=== PATIENT | female | born 1930 | race Caucasian/White ===

== ENCOUNTER 2016-07-16 12:45 | Inpatient (IN) | payer OTHER ==
--- NOTE | 2016-07-16 13:02 | PDOC ---
History of Present Illness - General History Source: Patient, Care Provider, Old Records Exam Limitations: No Limitations - History of Present Illness Initial Comments: 07/16/16 13:19 The patient is a 85 year old female brought via EMS from home and presenting with her home health aide, with a significant past medical history of CHF, HTN, COPD, MO, atrial fibrillation, recurrent UTI and Right breast ductal carcinoma in situ, who presents to the emergency department with progressive confusion. The patient states that she has been having trouble with her memory lately and has asked to be placed in a custodial if possible. The patient had a fall 5 days ago, without any head trauma, loss of consciousness or any other kind of injuries. The patient denies chest pain, shortness of breath, headache and dizziness. Denies fever, chills, nausea, vomit, diarrhea and constipation. Denies dysuria, frequency, urgency and hematuria. Allergies: Penicillins Past surgical history: stents, MVR Social history: No alcohol, tobacco or drug use reported <Edilson Correa - Last Filed: 07/16/16 14:27> <Dianne Everett - Last Filed: 07/17/16 07:27> - General Chief Complaint: Altered Mental Status Stated Complaint: AMS Time Seen by Provider: 07/16/16 12:48 Past History <Edilson Correa - Last Filed: 07/16/16 14:27> - Past Medical History Cancer: Yes (- Right breast ductal carcinoma in situ) Cardiac Disorders: (Atrial Fibrilation, MO) COPD: Yes CHF: Yes Disorders: (Recurrent UTI) HTN: Yes Suicide Attempt (Hx): No - Surgical History Cardiac Surgery: (stents, MVR) Orthopedic Surgery: (Reduction of dislocated right shoulder - 3 weeks ago/ Unsuccessful) - Immunization History Immunization Up to Date: Yes - Psycho/Social/Smoking Cessation Hx Anxiety: No Suicidal Ideation: No Smoking History: Former smoker Have you smoked in the past 12 months: No Information on smoking cessation initiated: No Hx Alcohol Use: No Drug/Substance Use Hx: No Substance Use Type: None Hx Substance Use Treatment: No <Dianne Everett - Last Filed: 07/17/16 07:27> - Past Medical History Allergies/Adverse Reactions: Allergies Allergy/AdvReac Type Severity Reaction Status Date / Time Penicillins Allergy Unknown Verified 07/16/16 13:12 Home Medications: Ambulatory Orders Acetaminophen [Tylenol] 325 mg PO Q6H PRN #0 tablet 01/17/14 Albuterol 0.083% Nebulizer Shamika [Ventolin 0.083% Nebulizer Soln -] 1 neb NEB Q6H PRN #0 vial 01/17/14 Furosemide [Lasix -] 20 mg PO DAILY #30 tablet 01/17/14 Ramipril [Altace] 5 mg PO DAILY #0 tablet 01/17/14 Atorvastatin Ca [Lipitor] 20 mg PO HS #30 tablet 01/20/14 Carvedilol [Coreg -] 6.25 mg PO BID #60 tablet 01/20/14 Levothyroxine [Synthroid -] 75 mcg PO DAILY #30 tablet 01/20/14 Acetaminophen W/ Codeine #3 [Tylenol # 3 -] 1 combo PO Q8H PRN #60 tablet Apixaban [Eliquis -] 2.5 mg PO BID #60 tablet 04/23/14 Magnesium Oxide [Mag-Ox -] 400 mg PO BID #60 tablet 04/23/14 Sertraline HCl [Zoloft -] 25 mg PO DAILY #60 tablet 04/23/14 Review of Systems - Review of Systems Able to Perform ROS?: Yes Comments:: 07/16/16 13:19 GENERAL/CONSTITUTIONAL: No fever or chills. No weakness. Altered Mental status. HEAD, EYES, EARS, NOSE AND THROAT: No change in vision. No ear pain or discharge. No sore throat. CARDIOVASCULAR: No chest pain or shortness of breath RESPIRATORY: No cough, wheezing, or hemoptysis. GASTROINTESTINAL: No nausea, vomiting, diarrhea or constipation. GENITOURINARY: No dysuria, frequency, or change in urination. MUSCULOSKELETAL: No joint or muscle swelling or pain. No neck or back pain. SKIN: No rash NEUROLOGIC: No headache, vertigo, loss of consciousness, or change in strength/ sensation. ENDOCRINE: No increased thirst. No abnormal weight change HEMATOLOGIC/LYMPHATIC: No anemia, easy bleeding, or history of blood clots. ALLERGIC/IMMUNOLOGIC: No hives or skin allergy. <Edilson Correa - Last Filed: 07/16/16 14:27> *Physical Exam - Vital Signs Last Vital Signs Temp Pulse Resp BP Pulse Ox 98.4 F 78 18 183/52 100 07/16/16 13:03 07/16/16 13:03 07/16/16 13:03 07/16/16 13:03 07/16/16 13:03 - Physical Exam Comments: 07/16/16 13:19 GENERAL: Awake, alert, and fully oriented, in no acute distress HEAD: No signs of trauma, normocephalic, atraumatic EYES: PERRLA, EOMI, sclera anicteric, conjunctiva clear ENT: Auricles normal inspection, hearing grossly normal, nares patent, oropharynx clear without exudates. Moist mucosa NECK: Normal ROM, supple, no lymphadenopathy, JVD, or masses LUNGS: No distress, speaks full sentences, clear to auscultation bilaterally HEART: Regular rate and rhythm, normal S1 and S2, no murmurs, rubs or gallops, peripheral pulses normal and equal bilaterally. ABDOMEN: Soft, nontender, normoactive bowel sounds. No guarding, no rebound. No masses EXTREMITIES: +3 cm ecchymosis to the right anterior emery. Nontender deformity to the left wrist, with edema to the dorsal surface. Normal inspection, Normal range of motion, no edema. No clubbing or cyanosis. NEUROLOGICAL: Cranial nerves II through XII grossly intact. Normal speech, normal gait, no focal sensorimotor deficits SKIN: Warm, Dry, normal turgor, no rashes or lesions noted. <Edilson Correa - Last Filed: 07/16/16 14:27> Heart Score/ECG Review - ECG Impressions Comment:: EKG read 13:20- afib, ventricular rate 62 bpm, no acute ST/T changes <Dianne Everett - Last Filed: 07/17/16 07:27> ED Treatment Course - LABORATORY CBC & Chemistry Diagram: 07/16/16 13:20 07/16/16 13:20 - RADIOLOGY Radiograph Interpretation: 07/16/16 14:[address] Reviewed by: Dr. Bakari Grissom Impression: Moderate atrophy and moderate to marked chronic microvascular ischemic changes. No gross acute intracranial pathology is identified. Chest X-Ray Reviewed by: Dr. Jorge Reynolds Impression: No acute pathology. Left wrist x-ray Reviewed by: Dr. Jorge Reynolds Impression: Dorsal angulation of the distal radius consistent with fracture of inderterminate age. Soft tissue swelling over the dorsal aspect of the wrist and metacarpals. Calcification over the dorsal aspect of the proximal carpal row may reflect triquetral fracture and recommend clinical correlation for point tenderness. <Edilson Correa - Last Filed: 07/16/16 14:27> - LABORATORY CBC & Chemistry Diagram: 07/16/16 13:20 07/16/16 13:20 <Dianne Everett - Last Filed: 07/17/16 07:27> Medical Decision Making - Medical Decision Making 07/16/16 15:03 XR wrist shows poss old fracture. Patient is not tender to palpation, will not splint at present. Also, as per home health aide, the patient had an old fracture in the same location, so this may correlate with the XR findings. Labs show elevated creatinine- discussed with Dr. Thompson, she has been following this as an outpatient. Still awaiting UA, but I suspect patient has a UTI which may be contributing to her recent increased forgetfulness. At present, patient is requesting placement in [place]. 07/16/16 15:39 UA shows UTI. Will treat with levaquin, as patient is pcn-allergic. <Dianne Everett - Last Filed: 07/17/16 07:27> *DC/Admit/Observation/Transfer - Attestations Scribe Attestion: 07/16/16 13:19 Documentation prepared by Edilson Correa, acting as medical record librarian for Dianne Everett MD. <Edilson Correa - Last Filed: 07/16/16 14:27> - Discharge Dispostion Admit: Yes <Dianne Everett - Last Filed: 07/17/16 07:27> Diagnosis at time of Disposition: Altered mental status Qualifiers: Altered mental status type: unspecified Qualified Code(s): R41.82 - Altered mental status, unspecified UTI (urinary tract infection) Qualifiers: Urinary tract infection type: site unspecified Hematuria presence: without hematuria Qualified Code(s): N39.0 - Urinary tract infection, site not specified - Discharge Dispostion Condition at time of disposition: Stable
[2016-07-16 13:36] LABS: BASOPHIL 0.4 % (0-2.0); EOSINOPHIL 1.1 % (0-4.5); MCHC 33.6 g/dl (32.0-36.0); MEAN CELL VOLUME 92.3 fl (80-96); NEUTROPHILS 76.3 % (42.8-82.8); PLATELET COUNT 346 K/MM3 (134-434); RDW 16.5 % (11.6-15.6); WHITE BLOOD COUNT 9.4 K/mm3 (4.0-10.0)
[2016-07-16 14:01] LABS: ALBUMIN 3.5 g/dl (3.4-5.0); BILIRUBIN,TOTAL 0.5 mg/dL (0.2-1.0); CALCIUM 8.9 mg/dL (8.5-10.1); CREATININE 1.2 mg/dL (0.55-1.02); TOT PROT 6.7 g/dl (6.4-8.2)
--- NOTE | 2016-07-16 15:01 | EKG ---
Test Reason : Blood Pressure : / mmHG Vent. Rate : 062 BPM Atrial Rate : 033 BPM P-R Int : 000 ms QRS Dur : 082 ms QT Int : 418 ms P-R-T Axes : 000 005 -27 degrees QTc Int : 424 ms ATRIAL FIBRILLATION CANNOT RULE OUT ANTERIOR INFARCT , AGE UNDETERMINED NONSPECIFIC T WAVE ABNORMALITY ABNORMAL ECG WHEN COMPARED WITH ECG OF 18-APR-2014 16:51, T WAVE VARIATION Confirmed by KLEBER UNDERWOOD MD ([id number]) on 07/16/2016 3:01:02 PM Referred By: Confirmed By:KLEBER UNDERWOOD MD
[2016-07-16 15:24] LABS: URINE APPEARANCE CLOUDY; URINE BILIRUBIN NEGATIVE (NEGATIVE); URINE BLOOD NEGATIVE (NEGATIVE); URINE COLOR DKYELLOW; URINE GLUCOSE (UA) NEGATIVE (NEGATIVE); URINE KETONE 1+ (NEGATIVE); URINE NITRITE NEGATIVE (NEGATIVE); URINE UROBILINOGEN NEGATIVE E.U./dl (0.2-1.0)
[2016-07-16 15:26] LABS: URINE LEUK ESTERASE 3+ (NEGATIVE); URINE PROTEIN 2+ (NEGATIVE)
[2016-07-16 15:31] LABS: CALCIUM OXALATE CRYSTALS RARE /hpf (NONE SEEN); URINE HYALINE CAST 92 /lpf; URINE MUCUS MANY; URINE RBC 31 /hpf (0-3); URINE WBC 304 /hpf (3-5)
[2016-07-16] MEDS: LEVOFLOXACIN 750 MG IVPB 150 ML IVPB ONE ×2 (16:02→17:53)
[2016-07-16] MEDS ORDERED: ALBUTEROL SO4 0.083% IH SOL 2.5 MG/3 ML VIAL.NEB. NEB PRN (18:00)
[2016-07-16] MEDS ORDERED: SODIUM POLYSTYRENE SULFONATE 15 GM/60 ML BOTTLE PO ONE (18:08)
[2016-07-16 18:24] VITALS: BMI 20.9
[2016-07-16] MEDS ORDERED: HEPARIN NA (PORCINE) 5,000 UNITS/ML 1ML VIAL SQ SCH (22:00)
--- NOTE | 2016-07-16 22:13 | HP ---
Admitting History and Physical - Primary Care Physician PCP: Elicia Thompson S - Admission Chief Complaint: s/p fall, confusion History of Present Illness: The patient is a 85 year old female brought via EMS from home and presenting with her home health aide, with a significant past medical history of CHF, HTN, COPD, [place], atrial fibrillation, recurrent UTI and Right breast ductal carcinoma in situ, who presents to the emergency department with progressive confusion. The patient states that she has been having trouble with her memory lately and has asked to be placed in a longterm if possible. The patient had a fall 5 days ago, without any head trauma, loss of consciousness or any other kind of injuries. The patient denies chest pain, shortness of breath, headache and dizziness. Denies fever, chills, nausea, vomit, diarrhea and constipation. Denies dysuria, frequency, urgency and hematuria. 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 No: O2 Dependent Renal/: Yes: Cancer (Breast CA) ...: No Heme/Onc: Yes: Cancer (Breast CA), Myeloproliferative Synd Musculoskeletal: Yes: Chronic low back pain Rheumatology: Yes: Other (OA/DJD, spinal stenosis) Endocrine: Yes: Osteopenia - Smoking History Smoking history: Former smoker Have you smoked in the past 12 months: No - Alcohol/Substance Use Hx Alcohol Use: No History of Substance Use: reports: None - Social History Usual Living Arrangement: Yes: Alone ADL: Independent ([employer]) History of Recent Travel: No Home Medications - Allergies Allergies/Adverse Reactions: Allergies Allergy/AdvReac Type Severity Reaction Status Date / Time Penicillins Allergy Unknown Verified 07/16/16 13:12 - Home Medications Home Medications: Ambulatory Orders Acetaminophen [Tylenol] 325 mg PO Q6H PRN #0 tablet 01/17/14 Albuterol 0.083% Nebulizer Shamika [Ventolin 0.083% Nebulizer Soln -] 1 neb NEB Q6H PRN #0 vial 01/17/14 Furosemide [Lasix -] 20 mg PO DAILY #30 tablet 01/17/14 Ramipril [Altace] 5 mg PO DAILY #0 tablet 08/11/14 Atorvastatin Ca [Lipitor] 20 mg PO HS #30 tablet 01/20/14 Carvedilol [Coreg -] 6.25 mg PO BID #60 tablet 01/20/14 Levothyroxine [Synthroid -] 75 mcg PO DAILY #30 tablet 01/20/14 Acetaminophen W/ Codeine #3 [Tylenol # 3 -] 1 combo PO Q8H PRN #60 tablet Apixaban [Eliquis -] 2.5 mg PO BID #60 tablet 04/23/14 Magnesium Oxide [Mag-Ox -] 400 mg PO BID #60 tablet 04/23/14 Sertraline HCl [Zoloft -] 25 mg PO DAILY #60 tablet 04/23/14 Family Disease History - Family Disease History Family Disease History: Other: Father (CVA 80's), Mother (RA 60's) Review of Systems - Review of Systems Constitutional: denies: Chills, Fever Eyes: denies: Blurred Vision, Double Vision HENT: denies: Ear Pain Cardiovascular: denies: Chest Pain Respiratory: denies: Cough, SOB Gastrointestinal: denies: Abdominal Pain, Bloating, Constipation, Diarrhea Genitourinary: denies: Dysuria, Flank Pain Musculoskeletal: reports: Back Pain (chronic). denies: Muscle Weakness Integumentary: denies: Bruising, Rash Neurological: reports: Confusion, Unsteady Gait. denies: Change in LOC, Change in Speech, Dizziness, Headache, Seizure, Syncope Hematology/Lymphatic: denies: Easily Bruised, Excessive Bleeding Psychiatric: denies: Anxiety, Depression Physical Examination Vital Signs: Vital Signs Temperature 97.9 F 07/16/16 18:25 Pulse Rate 66 07/16/16 18:25 Respiratory Rate 20 07/16/16 18:25 Blood Pressure 184/77 07/16/16 18:25 O2 Sat by Pulse Oximetry (%) 98 07/16/16 18:18 Constitutional: Yes: No Distress, Calm Eyes: Yes: Conjunctiva Clear HENT: Yes: Atraumatic Neck: Yes: Supple Cardiovascular: No: Regular Rate and Rhythm Respiratory: Yes: CTA Bilaterally Gastrointestinal: Yes: Soft. No: Distention, Tenderness Musculoskeletal: No: Joint Stiffness, Joint Swelling Extremities: Yes: Other (L hand dorsal deformity c/w trauma possible fracture). No: Cold, Cool Edema: No Peripheral Pulses WNL: Yes Integumentary: No: Rash, Venous Stasis Changes Neurological: Yes: WNL (axox2 not in time), Alert, Oriented ...Motor Strength: WNL Psychiatric: Yes: WNL, Alert, Oriented. No: Agitated, Suicidal Ideation Imaging - Results Chest X-ray: Report Reviewed Other: Report Reviewed Assessment/Plan The patient is a 85 year old female brought via EMS from home and presenting with her home health aide, with a significant past medical history of CHF, HTN, COPD, DC, atrial fibrillation, recurrent UTI and Right breast ductal carcinoma in situ, who presents to the emergency department with progressive confusion and memory loss, lives alone unable to function. The patient had a fall 5 days ago, without any head trauma, loss of consciousness but hit her left hand and has a fracture. UA c/w UTI admit; IV ATB ortho eval PT rehab and case mgr eval; will need SNF or [facility] [place] DVT falls decubs pfx dw pt and staff
[2016-07-16 22:22] LABS: TROPONIN I 0.04 ng/ml (0.00-0.05)
[2016-07-16] MEDS: APIXABAN 2.5 MG TABLET PO SCH (22:36)
[2016-07-16] MEDS: ATORVASTATIN CA 20 MG TABLET (FP) PO SCH (22:36)
[2016-07-16] MEDS: MAGNESIUM OXIDE 400 MG TABLET (FP) PO SCH (22:36)
[2016-07-16] MEDS: CARVEDILOL 3.125 MG TABLET (FP) PO SCH (22:40)
[2016-07-17] MEDS: LEVOTHYROXINE NA 75 MCG TABLET (FP) PO SCH (06:40)
[2016-07-17 07:19] LABS: BASOPHIL 0.3 % (0-2.0); EOSINOPHIL 1.2 % (0-4.5); MCH 30.4 pg (25.7-33.7); MCHC 33.3 g/dl (32.0-36.0); MEAN CELL VOLUME 91.3 fl (80-96); NEUTROPHILS 72.2 % (42.8-82.8); PLATELET COUNT 292 K/MM3 (134-434); WHITE BLOOD COUNT 7.1 K/mm3 (4.0-10.0)
[2016-07-17 07:50] LABS: ALBUMIN 2.8 g/dl (3.4-5.0); CALCIUM 8.2 mg/dL (8.5-10.1)
[2016-07-17 07:53] LABS: BILIRUBIN,TOTAL 0.4 mg/dL (0.2-1.0); CREATININE 0.9 mg/dL (0.55-1.02); TOT PROT 5.1 g/dl (6.4-8.2)
[2016-07-17 07:54] LABS: TROPONIN I 0.04 ng/ml (0.00-0.05)
[2016-07-17] MEDS ORDERED: POTASSIUM CHLORIDE TABS 20 MEQ TABLET.ER (FP) PO ONE (10:30)
--- NOTE | 2016-07-17 10:48 | CON.ORTH ---
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 No: O2 Dependent Renal/: Yes: Cancer (Breast CA) ...: No Musculoskeletal: Yes: Chronic low back pain Rheumatology: Yes: Other (OA/DJD, spinal stenosis) Endocrine: Yes: Osteopenia - Alcohol/Substance Use Hx Alcohol Use: No History of Substance Use: reports: None - Smoking History Smoking history: Former smoker Have you smoked in the past 12 months: No - Social History ADL: Independent ([facility]) History of Recent Travel: No Home Medications - Allergies Allergies/Adverse Reactions: Allergies Allergy/AdvReac Type Severity Reaction Status Date / Time Penicillins Allergy Unknown Verified 07/16/16 13:12 - Home Medications Home Medications: Ambulatory Orders Acetaminophen [Tylenol] 325 mg PO Q6H PRN #0 tablet 01/17/14 Albuterol 0.083% Nebulizer Shamika [Ventolin 0.083% Nebulizer Soln -] 1 neb NEB Q6H PRN #0 vial 01/17/14 Furosemide [Lasix -] 20 mg PO DAILY #30 tablet 01/17/14 Ramipril [Altace] 5 mg PO DAILY #0 tablet 01/17/14 Atorvastatin Ca [Lipitor] 20 mg PO HS #30 tablet 01/20/14 Carvedilol [Coreg -] 6.25 mg PO BID #60 tablet 01/20/14 Levothyroxine [Synthroid -] 75 mcg PO DAILY #30 tablet 01/20/14 Acetaminophen W/ Codeine #3 [Tylenol # 3 -] 1 combo PO Q8H PRN #60 tablet Apixaban [Eliquis -] 2.5 mg PO BID #60 tablet 04/23/14 Magnesium Oxide [Mag-Ox -] 400 mg PO BID #60 tablet 04/23/14 Sertraline HCl [Zoloft -] 25 mg PO DAILY #60 tablet 04/23/14 Family Disease History - Family Disease History Family Disease History: Other: Father (CVA 80's), Mother (RA 60's) Physical Exam for Ortho Vital Signs: Vital Signs Temperature 99 F 07/17/16 05:32 Pulse Rate 76 07/17/16 05:32 Respiratory Rate 20 02/08/17 05:32 Blood Pressure 143/65 07/17/16 05:32 O2 Sat by Pulse Oximetry (%) 98 07/16/16 21:00 Labs: CBC, BMP 07/17/16 06:00 07/17/16 06:00 - Upper Extremity Wrist: Yes: Left, Deformity, Pain, Swelling, Tenderness, Other (nvi) Imaging - Results X-ray: Report Reviewed, Image Reviewed Assessment/Plan 85 year old female brought via EMS from home and presenting with her home health aide, with a significant past medical history of CHF, HTN, COPD, [place], atrial fibrillation, recurrent UTI and Right breast ductal carcinoma in situ, who presents to the emergency department with progressive confusion. The patient states that she has been having trouble with her memory lately and has asked to be placed in a custodial if possible. The patient had a fall 5 days ago, without any head trauma, loss of consciousness. Has some pain in left wrist. Pt had previous history of wrist fx years ago. a/p= left distal radius fx splint may remove to bath rom exercises will follow d/w Dr. Stanley
[2016-07-17] MEDS ORDERED: PT OWN MED DRAWER 7, Y5N ONE (10:53)
[2016-07-17] MEDS: CARVEDILOL 3.125 MG TABLET (FP) PO SCH ×2 (11:37→21:15)
[2016-07-17] MEDS: RAMIPRIL 5 MG CAPSULE (FP) PO SCH (11:37)
[2016-07-17] MEDS: APIXABAN 2.5 MG TABLET PO SCH ×2 (11:38→21:15)
[2016-07-17] MEDS: LEVOFLOXACIN 250 MG IVPB 50 ML IVPB SCH (11:38)
[2016-07-17] MEDS: FUROSEMIDE 20 MG TABLET (FP) PO SCH (11:38)
[2016-07-17] MEDS: MAGNESIUM OXIDE 400 MG TABLET (FP) PO SCH ×2 (11:39→21:15)
[2016-07-17] MEDS: SERTRALINE HCL 25 MG TABLET (FP) PO SCH (11:39)
--- NOTE | 2016-07-17 13:05 | PN ---
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, d/w CM - Current Medication List Current Medications: Active Medications Acetaminophen (Tylenol -) 325 mg PO Q6H PRN PRN Reason: PAIN Albuterol Sulfate (Ventolin 0.083% Nebulizer Soln -) 1 amp NEB Q6H PRN PRN Reason: ASTHMA Apixaban (Eliquis -) 2.5 mg PO BID [facility] Last Admin: 07/17/16 11:38 Dose: 2.5 mg Atorvastatin Calcium (Lipitor -) 20 mg PO [facility] Last Admin: 07/16/16 22:36 Dose: 20 mg Carvedilol (Coreg -) 6.25 mg PO BID [facility] Last Admin: 07/17/16 11:37 Dose: 6.25 mg Furosemide (Lasix -) 20 mg PO DAILY [facility] Last Admin: 07/17/16 11:38 Dose: 20 mg Levofloxacin (Levaquin 250 Mg Premixed Ivpb -) 50 mls @ 50 mls/hr IVPB DAILY [facility] Last Admin: 07/17/16 11:38 Dose: 50 mls/hr Levothyroxine Sodium (Synthroid -) 75 mcg PO DAILY@0700 [facility] Last Admin: 07/17/16 06:40 Dose: 75 mcg Magnesium Oxide (Mag-Ox -) 400 mg PO BID [facility] Last Admin: 07/17/16 11:39 Dose: 400 mg Ramipril (Altace -) 5 mg PO DAILY [facility] Last Admin: 07/17/16 11:37 Dose: 5 mg Sertraline HCl (Zoloft -) 25 mg PO DAILY [facility] Last Admin: 07/17/16 11:39 Dose: 25 mg - Objective Vital Signs: Vital Signs Temperature 99 F 07/17/16 05:32 Pulse Rate 76 07/17/16 05:32 Respiratory Rate 20 07/17/16 05:32 Blood Pressure 143/65 07/17/16 05:32 O2 Sat by Pulse Oximetry (%) 98 07/16/16 21:00 Constitutional: Yes: No Distress, Calm Eyes: Yes: Conjunctiva Clear HENT: Yes: Atraumatic Neck: Yes: Supple Cardiovascular: No: Regular Rate and Rhythm Respiratory: Yes: CTA Bilaterally Gastrointestinal: Yes: Soft. No: Distention, Tenderness Genitourinary: No: CVA Tenderness - Left, CVA Tenderness - Right Musculoskeletal: No: Joint Stiffness, Joint Swelling Extremities: No: Cold, Cool Edema: No Peripheral Pulses WNL: Yes Integumentary: No: Rash, Venous Stasis Changes Neurological: Yes: Alert, Oriented ...Motor Strength: WNL Psychiatric: Yes: Alert, Oriented. No: Agitated, Suicidal Ideation Labs: CBC, BMP 07/17/16 06:00 07/17/16 06:00 - ....Imaging Other: Report Reviewed Assessment/Plan The patient is a 85 year old female brought via EMS from home and presenting with her home health aide, with a significant past medical history of CHF, HTN, COPD, MO, atrial fibrillation, recurrent UTI and Right breast ductal carcinoma in situ, who presents to the emergency department with progressive confusion and memory loss, lives alone unable to function. The patient had a fall 5 days ago, without any head trauma, loss of consciousness but hit her left hand and has a fracture. 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
[2016-07-17] MEDS: ACETAMINOPHEN 325 MG TABLET (FP) PO PRN (18:04)
[2016-07-17] MEDS: ATORVASTATIN CA 20 MG TABLET (FP) PO SCH (21:15)
[2016-07-18] MEDS: LEVOTHYROXINE NA 75 MCG TABLET (FP) PO SCH (06:15)
[2016-07-18 07:57] LABS: CALCIUM 7.7 mg/dL (8.5-10.1); MAGNESIUM 1.7 mg/dL (1.8-2.4)
[2016-07-18] MEDS ORDERED: MAGNESIUM OXIDE 400 MG TABLET (FP) PO ONE (10:35)
[2016-07-18] MEDS: LEVOFLOXACIN 250 MG IVPB 50 ML IVPB SCH (10:42)
[2016-07-18] MEDS: MAGNESIUM OXIDE 400 MG TABLET (FP) PO SCH ×2 (10:42→21:21)
[2016-07-18] MEDS: CARVEDILOL 3.125 MG TABLET (FP) PO SCH ×2 (10:43→21:19)
[2016-07-18] MEDS: FUROSEMIDE 20 MG TABLET (FP) PO SCH (10:43)
[2016-07-18] MEDS: SERTRALINE HCL 25 MG TABLET (FP) PO SCH (10:43)
[2016-07-18] MEDS ORDERED: PT OWN MED DRAWER 7, Y5N ONE (10:53)
--- NOTE | 2016-07-18 10:54 | PN ---
Progress Note, Physician Chief Complaint: in bed nad afebrile no new c/o; walked 15 feet with PT rehab - Current Medication List Current Medications: Active Medications Acetaminophen (Tylenol -) 325 mg PO Q6H PRN PRN Reason: PAIN Last Admin: 07/17/16 18:04 Dose: 325 mg Albuterol Sulfate (Ventolin 0.083% Nebulizer Soln -) 1 amp NEB Q6H PRN PRN Reason: ASTHMA Last Admin: 07/18/16 10:36 Dose: 1 amp Apixaban (Eliquis -) 2.5 mg PO BID [facility] Last Admin: 07/17/16 21:15 Dose: 2.5 mg Atorvastatin Calcium (Lipitor -) 20 mg PO HS [facility] Last Admin: 07/17/16 21:15 Dose: 20 mg Carvedilol (Coreg -) 6.25 mg PO BID [facility] Last Admin: 07/17/16 21:15 Dose: 6.25 mg Furosemide (Lasix -) 20 mg PO DAILY [facility] Last Admin: 07/17/16 11:38 Dose: 20 mg Levofloxacin (Levaquin 250 Mg Premixed Ivpb -) 50 mls @ 50 mls/hr IVPB DAILY [facility] Last Admin: 07/17/16 11:38 Dose: 50 mls/hr Levothyroxine Sodium (Synthroid -) 75 mcg PO DAILY@0700 [facility] Last Admin: 07/18/16 06:15 Dose: 75 mcg Magnesium Oxide (Mag-Ox -) 400 mg PO BID [facility] Last Admin: 07/17/16 21:15 Dose: 400 mg Potassium Chloride (K-Dur -) 40 meq PO ONCE ONE Stop: 07/18/16 11:01 Ramipril (Altace -) 5 mg PO DAILY [facility] Last Admin: 07/17/16 11:37 Dose: 5 mg Sertraline HCl (Zoloft -) 25 mg PO DAILY [facility] Last Admin: 07/17/16 11:39 Dose: 25 mg - Objective Vital Signs: Vital Signs Temperature 98.3 F 07/18/16 05:50 Pulse Rate 73 07/18/16 05:50 Respiratory Rate 20 07/18/16 05:50 Blood Pressure 141/66 07/18/16 05:50 O2 Sat by Pulse Oximetry (%) 98 07/17/16 21:00 Constitutional: Yes: No Distress, Calm Eyes: Yes: Conjunctiva Clear HENT: Yes: Atraumatic Neck: Yes: Supple Cardiovascular: Yes: Regular Rate and Rhythm Respiratory: Yes: CTA Bilaterally Gastrointestinal: Yes: Soft. No: Distention, Tenderness Genitourinary: No: CVA Tenderness - Left, CVA Tenderness - Right, Hematuria Musculoskeletal: No: Joint Stiffness, Joint Swelling Extremities: No: Cold, Cool Edema: No Peripheral Pulses WNL: Yes Integumentary: No: Rash, Venous Stasis Changes Neurological: Yes: WNL, Alert, Oriented ...Motor Strength: WNL Psychiatric: Yes: WNL, Alert, Oriented. No: Agitated, Suicidal Ideation Labs: CBC, BMP 07/17/16 06:00 07/18/16 06:00 - ....Imaging Other: Report Reviewed Assessment/Plan The patient is a 85 year old female brought via EMS from home and presenting with her home health aide, with a significant past medical history of CHF, HTN, COPD, [place], atrial fibrillation, recurrent UTI and Right breast ductal carcinoma in situ, who presents to the emergency department with progressive confusion and memory loss, lives alone unable to function. The patient had a fall 5 days ago, without any head trauma, loss of consciousness but hit her left hand and has a fracture. 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
[2016-07-18] MEDS: APIXABAN 2.5 MG TABLET PO SCH ×2 (10:55→21:19)
[2016-07-18] MEDS: RAMIPRIL 5 MG CAPSULE (FP) PO SCH (10:56)
[2016-07-18] MEDS ORDERED: POTASSIUM CHLORIDE TABS 20 MEQ TABLET.ER (FP) PO ONE (11:00)
[2016-07-18 17:36] LABS: URINE APPEARANCE SLCLOUDY; URINE BILIRUBIN NEGATIVE (NEGATIVE); URINE BLOOD NEGATIVE (NEGATIVE); URINE COLOR DKYELLOW; URINE GLUCOSE (UA) NEGATIVE (NEGATIVE); URINE KETONE NEGATIVE (NEGATIVE); URINE NITRITE NEGATIVE (NEGATIVE); URINE UROBILINOGEN NEGATIVE E.U./dl (0.2-1.0)
[2016-07-18 17:40] LABS: URINE LEUK ESTERASE 3+ (NEGATIVE); URINE PROTEIN 1+ (NEGATIVE)
[2016-07-18 17:41] LABS: URINE BACTERIA MODERATE /hpf (NONE SEEN); URINE HYALINE CAST 6 /lpf; URINE MUCUS FEW; URINE RBC 8 /hpf (0-3); URINE WBC 21 /hpf (3-5)
[2016-07-18] MEDS: ATORVASTATIN CA 20 MG TABLET (FP) PO SCH (21:19)
[2016-07-19] MEDS: LEVOTHYROXINE NA 75 MCG TABLET (FP) PO SCH (06:06)
[2016-07-19 08:13] LABS: CALCIUM 8.1 mg/dL (8.5-10.1); MAGNESIUM 1.9 mg/dL (1.8-2.4)
--- NOTE | 2016-07-19 08:41 | PN ---
Progress Note (short form) - Note Progress Note: Ortho Pt seen and examined s/p left distal radius fx splint intact, decr swelling, decr ttp, nvi a/p maintain splint may remove 2-3 times per day for ROM exercises orthopedically stable d/w Dr. Sharif
[2016-07-19] MEDS: APIXABAN 2.5 MG TABLET PO SCH ×2 (10:03→21:27)
[2016-07-19] MEDS ORDERED: PT OWN MED DRAWER 7, Y5N ONE ×2 (10:07→20:23)
[2016-07-19] MEDS: SERTRALINE HCL 25 MG TABLET (FP) PO SCH (10:09)
[2016-07-19] MEDS: CARVEDILOL 3.125 MG TABLET (FP) PO SCH ×2 (10:09→21:26)
[2016-07-19] MEDS: RAMIPRIL 5 MG CAPSULE (FP) PO SCH (10:09)
[2016-07-19] MEDS: MAGNESIUM OXIDE 400 MG TABLET (FP) PO SCH ×2 (10:09→21:27)
[2016-07-19] MEDS: FUROSEMIDE 20 MG TABLET (FP) PO SCH (10:09)
[2016-07-19] MEDS: LEVOFLOXACIN 250 MG IVPB 50 ML IVPB SCH (10:09)
--- NOTE | 2016-07-19 11:36 | PN ---
Progress Note, Physician Chief Complaint: feels weak and tired, does not want to get OOB, no specific c/o but said "I don' t feel too good"; was on nebs earlier. No CP/SOB, no cough or PND. I spoke with Pauline this am about her current condition, treatment and plan; she agrees to go to a NH; we also discussed about HCP and DNR DNI and she expressed wish to be DNR DNI no aggressive measures, no PEG or feeding tubes; said "just let me go when the time comes". She seemed appropriate and asked and answered questions appropriately. I asked her to sign advanced directives papers and she said she will, and I spoke with Denise palliative care to help pt with the above papers, however when Denise spoke with pt she became upset and did not want to discuss or sign anything because "she does not wnat to jinx it". - Current Medication List Current Medications: Active Medications Acetaminophen (Tylenol -) 325 mg PO Q6H PRN PRN Reason: PAIN Last Admin: 07/17/16 18:04 Dose: 325 mg Albuterol Sulfate (Ventolin 0.083% Nebulizer Soln -) 1 amp NEB Q6H PRN PRN Reason: ASTHMA Last Admin: 07/18/16 10:36 Dose: 1 amp Apixaban (Eliquis -) 2.5 mg PO BID [facility] Last Admin: 07/19/16 10:03 Dose: 2.5 mg Atorvastatin Calcium (Lipitor -) 20 mg PO HS [facility] Last Admin: 07/18/16 21:19 Dose: 20 mg Carvedilol (Coreg -) 6.25 mg PO BID [facility] Last Admin: 07/19/16 10:09 Dose: 6.25 mg Furosemide (Lasix -) 20 mg PO DAILY [facility] Last Admin: 07/19/16 10:09 Dose: 20 mg Levofloxacin (Levaquin 250 Mg Premixed Ivpb -) 50 mls @ 50 mls/hr IVPB DAILY [facility] Last Admin: 07/19/16 10:09 Dose: 50 mls/hr Levothyroxine Sodium (Synthroid -) 75 mcg PO DAILY@0700 [facility] Last Admin: 07/19/16 06:06 Dose: 75 mcg Magnesium Oxide (Mag-Ox -) 400 mg PO BID [facility] Last Admin: 02/10/17 10:09 Dose: 400 mg Ramipril (Altace -) 5 mg PO DAILY [facility] Last Admin: 07/19/16 10:09 Dose: 5 mg Sertraline HCl (Zoloft -) 25 mg PO DAILY [facility] Last Admin: 07/19/16 10:09 Dose: 25 mg - Objective Vital Signs: Vital Signs Temperature 98.1 F 07/19/16 11:16 Pulse Rate 52 L 07/19/16 11:16 Respiratory Rate 18 07/19/16 11:16 Blood Pressure 143/47 07/19/16 11:16 O2 Sat by Pulse Oximetry (%) 95 07/19/16 09:00 Constitutional: Yes: No Distress, Calm Eyes: Yes: Conjunctiva Clear HENT: Yes: Atraumatic Neck: Yes: Supple Cardiovascular: Yes: Regular Rate and Rhythm Respiratory: Yes: CTA Bilaterally Gastrointestinal: Yes: Soft. No: Distention, Tenderness Genitourinary: No: CVA Tenderness - Left, CVA Tenderness - Right Musculoskeletal: No: Joint Stiffness, Joint Swelling Extremities: No: Cold, Cool Edema: No Peripheral Pulses WNL: Yes Integumentary: No: Pressure Ulcer, Rash, Venous Stasis Changes Neurological: Yes: WNL, Alert, Oriented ...Motor Strength: WNL Psychiatric: Yes: WNL, Alert, Oriented. No: Agitated, Suicidal Ideation Labs: CBC, BMP 07/17/16 06:00 07/19/16 06:25 - ....Imaging Other: Report Reviewed Assessment/Plan The patient is a 85 year old female brought via EMS from home and presenting with her home health aide, with a significant past medical history of CHF, HTN, COPD, CO, atrial fibrillation, recurrent UTI and Right breast ductal carcinoma in situ, who presents to the emergency department with progressive confusion and memory loss, lives alone unable to function. The patient had a fall 5 days ago, without any head trauma, loss of consciousness but hit her left hand and has a fracture. UA c/w UTI; IV ATB ortho f/u PT rehab and embedded case manager jose mal; will need SNF or longterm NH DVT falls decubs pfx dw pt and staff
[2016-07-19] MEDS: ACETAMINOPHEN 325 MG TABLET (FP) PO PRN (16:12)
[2016-07-19] MEDS: ATORVASTATIN CA 20 MG TABLET (FP) PO SCH (21:27)
[2016-07-20] MEDS: LEVOTHYROXINE NA 75 MCG TABLET (FP) PO SCH (06:00)
[2016-07-20] MEDS ORDERED: PT OWN MED DRAWER 7, Y5N ONE ×2 (10:03→16:03)
[2016-07-20] MEDS: LEVOFLOXACIN 250 MG IVPB 50 ML IVPB SCH (10:04)
[2016-07-20] MEDS: FUROSEMIDE 20 MG TABLET (FP) PO SCH (10:05)
[2016-07-20] MEDS: RAMIPRIL 5 MG CAPSULE (FP) PO SCH (10:05)
[2016-07-20] MEDS: CARVEDILOL 3.125 MG TABLET (FP) PO SCH ×2 (10:05→21:03)
[2016-07-20] MEDS: MAGNESIUM OXIDE 400 MG TABLET (FP) PO SCH ×2 (10:05→21:09)
[2016-07-20] MEDS: APIXABAN 2.5 MG TABLET PO SCH ×2 (10:05→21:03)
[2016-07-20] MEDS: SERTRALINE HCL 25 MG TABLET (FP) PO SCH (10:05)
--- NOTE | 2016-07-20 13:00 | PN ---
Progress Note, Physician Chief Complaint: in bed nad no new c.o; melodie goode does not have half-way bed, PRAKASH sent to other PA - Current Medication List Current Medications: Active Medications Acetaminophen (Tylenol -) 325 mg PO Q6H PRN PRN Reason: PAIN Last Admin: 07/19/16 16:12 Dose: 325 mg Albuterol Sulfate (Ventolin 0.083% Nebulizer Soln -) 1 amp NEB Q6H PRN PRN Reason: ASTHMA Last Admin: 07/18/16 10:36 Dose: 1 amp Apixaban (Eliquis -) 2.5 mg PO BID [facility] Last Admin: 07/20/16 10:05 Dose: 2.5 mg Atorvastatin Calcium (Lipitor -) 20 mg PO HS [facility] Last Admin: 07/19/16 21:27 Dose: 20 mg Carvedilol (Coreg -) 6.25 mg PO BID [facility] Last Admin: 07/20/16 10:05 Dose: 6.25 mg Furosemide (Lasix -) 20 mg PO DAILY [facility] Last Admin: 07/20/16 10:05 Dose: 20 mg Levofloxacin (Levaquin 250 Mg Premixed Ivpb -) 50 mls @ 50 mls/hr IVPB DAILY [facility] Last Admin: 07/20/16 10:04 Dose: 50 mls/hr Levothyroxine Sodium (Synthroid -) 75 mcg PO DAILY@0700 [facility] Last Admin: 07/20/16 06:00 Dose: 75 mcg Magnesium Oxide (Mag-Ox -) 400 mg PO BID [facility] Last Admin: 07/20/16 10:05 Dose: 400 mg Ramipril (Altace -) 5 mg PO DAILY [facility] Last Admin: 07/20/16 10:05 Dose: 5 mg Sertraline HCl (Zoloft -) 25 mg PO DAILY [facility] Last Admin: 07/20/16 10:05 Dose: 25 mg - Objective Vital Signs: Vital Signs Temperature 99 F 07/20/16 05:23 Pulse Rate 62 07/20/16 05:23 Respiratory Rate 16 07/20/16 05:23 Blood Pressure 159/65 07/20/16 05:23 O2 Sat by Pulse Oximetry (%) 97 07/19/16 21:00 Constitutional: Yes: No Distress Eyes: Yes: Conjunctiva Clear HENT: Yes: Atraumatic Neck: Yes: Supple Cardiovascular: No: Regular Rate and Rhythm Respiratory: Yes: CTA Bilaterally Gastrointestinal: Yes: Soft. No: Distention, Tenderness Genitourinary: No: CVA Tenderness - Left, CVA Tenderness - Right Musculoskeletal: No: Joint Stiffness, Joint Swelling Extremities: No: Cold, Cool Edema: No Peripheral Pulses WNL: Yes Integumentary: No: Rash, Venous Stasis Changes Neurological: Yes: WNL, Alert, Oriented ...Motor Strength: WNL Psychiatric: Yes: WNL, Alert, Oriented. No: Agitated, Suicidal Ideation Labs: CBC, BMP 07/17/16 06:00 07/19/16 06:25 - ....Imaging Other: Report Reviewed Assessment/Plan The patient is a 85 year old female brought via EMS from home and presenting with her home health aide, with a significant past medical history of CHF, HTN, COPD, CA, atrial fibrillation, recurrent UTI and Right breast ductal carcinoma in situ, who presents to the emergency department with progressive confusion and memory loss, lives alone unable to function. The patient had a fall 5 days ago, without any head trauma, loss of consciousness but hit her left hand and has a fracture. 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
[2016-07-20] MEDS: ATORVASTATIN CA 20 MG TABLET (FP) PO SCH (21:03)
[2016-07-21] MEDS: LEVOTHYROXINE NA 75 MCG TABLET (FP) PO SCH (06:03)
[2016-07-21 07:16] LABS: MCH 30.3 pg (25.7-33.7); MCHC 33.3 g/dl (32.0-36.0); MEAN CELL VOLUME 91.2 fl (80-96); MEAN PLT VOLUME 6.9 fl (7.5-11.1); PLATELET COUNT 288 K/MM3 (134-434); RDW 15.8 % (11.6-15.6)
[2016-07-21 08:05] LABS: ALBUMIN 2.5 g/dl (3.4-5.0); CALCIUM 8.6 mg/dL (8.5-10.1)
[2016-07-21 08:09] LABS: BILIRUBIN,TOTAL 0.3 mg/dL (0.2-1.0); CREATININE 1.1 mg/dL (0.55-1.02); TOT PROT 4.8 g/dl (6.4-8.2)
[2016-07-21] MEDS ORDERED: PT OWN MED DRAWER 7, Y5N ONE (08:36)
[2016-07-21] MEDS: FUROSEMIDE 20 MG TABLET (FP) PO SCH (10:05)
[2016-07-21] MEDS: CARVEDILOL 3.125 MG TABLET (FP) PO SCH ×2 (10:05→21:00)
[2016-07-21] MEDS: APIXABAN 2.5 MG TABLET PO SCH ×2 (10:05→21:00)
[2016-07-21] MEDS: LEVOFLOXACIN 250 MG IVPB 50 ML IVPB SCH (10:05)
[2016-07-21] MEDS: SERTRALINE HCL 25 MG TABLET (FP) PO SCH (10:05)
[2016-07-21] MEDS: RAMIPRIL 5 MG CAPSULE (FP) PO SCH (10:05)
[2016-07-21] MEDS: MAGNESIUM OXIDE 400 MG TABLET (FP) PO SCH ×2 (10:05→21:00)
--- NOTE | 2016-07-21 11:40 | PN ---
Progress Note, Physician History of Present Illness: Pt w/o fever, SOB, CP, palp., abd pain. Pt knows that is not strong enough to walk alone. - Current Medication List Current Medications: Active Medications Acetaminophen (Tylenol -) 325 mg PO Q6H PRN PRN Reason: PAIN Last Admin: 07/19/16 16:12 Dose: 325 mg Albuterol Sulfate (Ventolin 0.083% Nebulizer Soln -) 1 amp NEB Q6H PRN PRN Reason: ASTHMA Last Admin: 07/18/16 10:36 Dose: 1 amp Apixaban (Eliquis -) 2.5 mg PO BID [facility] Last Admin: 07/21/16 10:05 Dose: 2.5 mg Atorvastatin Calcium (Lipitor -) 20 mg PO HS [facility] Last Admin: 07/20/16 21:03 Dose: 20 mg Carvedilol (Coreg -) 6.25 mg PO BID [facility] Last Admin: 07/21/16 10:05 Dose: 6.25 mg Furosemide (Lasix -) 20 mg PO DAILY [facility] Last Admin: 07/21/16 10:05 Dose: 20 mg Levofloxacin (Levaquin 250 Mg Premixed Ivpb -) 50 mls @ 50 mls/hr IVPB DAILY [facility] Last Admin: 07/21/16 10:05 Dose: 50 mls/hr Levothyroxine Sodium (Synthroid -) 75 mcg PO DAILY@0700 [facility] Last Admin: 07/21/16 06:03 Dose: 75 mcg Magnesium Oxide (Mag-Ox -) 400 mg PO BID [facility] Last Admin: 07/21/16 10:05 Dose: 400 mg Ramipril (Altace -) 5 mg PO DAILY [facility] Last Admin: 07/21/16 10:05 Dose: 5 mg Sertraline HCl (Zoloft -) 25 mg PO DAILY [facility] Last Admin: 07/21/16 10:05 Dose: 25 mg - Objective Vital Signs: Vital Signs Temperature 98.5 F 07/21/16 05:33 Pulse Rate 62 07/21/16 05:33 Respiratory Rate 18 07/21/16 05:33 Blood Pressure 146/83 07/21/16 05:33 O2 Sat by Pulse Oximetry (%) 98 07/20/16 21:00 Constitutional: Yes: No Distress, Calm Cardiovascular: Yes: Regular Rate and Rhythm, S1, S2 Respiratory: Yes: Regular, CTA Bilaterally. No: Rales Gastrointestinal: Yes: Normal Bowel Sounds, Soft. No: Tenderness Edema: No Neurological: Yes: Alert, Oriented (person) Labs: CBC, BMP 07/21/16 06:00 07/21/16 06:00 Problem List - Problems (1) Altered mental status Assessment/Plan: improved Code(s): R41.82 - ALTERED MENTAL STATUS, UNSPECIFIED Qualifiers: Altered mental status type: unspecified Qualified Code(s): R41.82 - Altered mental status, unspecified (2) Weakness Assessment/Plan: seen by PT; pt needs Rehab. Code(s): R53.1 - WEAKNESS (3) Fall Assessment/Plan: wassociated with left hand fracture Code(s): W19.XXXA - UNSPECIFIED FALL, INITIAL ENCOUNTER (4) Hand fracture, left Assessment/Plan: seen by ortho- consult and f/u appreciated; conservative management. Code(s): S62.92XA - UNSP FRACTURE OF LEFT WRIST AND HAND, INIT FOR CLOS FX (5) CHF (congestive heart failure) Code(s): I50.9 - HEART FAILURE, UNSPECIFIED (6) CAD (coronary artery disease) Code(s): I25.10 - ATHSCL HEART DISEASE OF [place] CORONARY ARTERY W/O ANG PCTRS (7) Breast cancer Code(s): C50.919 - MALIGNANT NEOPLASM OF UNSP SITE OF UNSPECIFIED FEMALE BREAST Assessment/Plan AM labs
[2016-07-21] MEDS: ATORVASTATIN CA 20 MG TABLET (FP) PO SCH (21:00)
[2016-07-22] MEDS: LEVOTHYROXINE NA 75 MCG TABLET (FP) PO SCH (06:10)
[2016-07-22 07:40] LABS: MCH 30.7 pg (25.7-33.7); MCHC 33.5 g/dl (32.0-36.0); MEAN CELL VOLUME 91.5 fl (80-96); MEAN PLT VOLUME 7.4 fl (7.5-11.1); PLATELET COUNT 315 K/MM3 (134-434); RDW 16.3 % (11.6-15.6); WHITE BLOOD COUNT 7.2 K/mm3 (4.0-10.0)
[2016-07-22 08:07] LABS: CALCIUM 8.5 mg/dL (8.5-10.1); CREATININE 1.1 mg/dL (0.55-1.02)
--- NOTE | 2016-07-22 09:43 | DS ---
Physical Examination Vital Signs: Vital Signs Temperature 98.2 F 07/22/16 06:12 Pulse Rate 66 07/22/16 06:12 Respiratory Rate 18 07/22/16 06:12 Blood Pressure 152/60 07/22/16 06:12 O2 Sat by Pulse Oximetry (%) 96 07/21/16 21:00 Findings/Remarks: in bed nad afebrile no new c/o Constitutional: Yes: No Distress, Calm Eyes: Yes: Conjunctiva Clear HENT: Yes: Atraumatic Neck: Yes: Supple Cardiovascular: No: Regular Rate and Rhythm Respiratory: Yes: CTA Bilaterally Gastrointestinal: Yes: Soft. No: Distention, Tenderness Renal/: No: CVA Tenderness - Left, CVA Tenderness - Right, Hematuria Musculoskeletal: No: Joint Stiffness, Joint Swelling Extremities: No: Cold, Cool Edema: No Peripheral Pulses WNL: Yes Integumentary: No: Rash, Skin Tear, Venous Stasis Changes Neurological: Yes: WNL, Alert, Oriented ...Motor Strength: WNL Psychiatric: Yes: WNL, Alert, Oriented. No: Agitated, Suicidal Ideation Labs: CBC, BMP 07/22/16 06:50 07/22/16 06:50 Discharge Summary Reason For Visit: AMS Current Active Problems Altered mental status (Acute) Breast cancer (Acute) CAD (coronary artery disease) (Acute) CHF (congestive heart failure) (Acute) Fall (Acute) Hand fracture, left (Acute) UTI (urinary tract infection) (Acute) Weakness (Acute) Procedures: Principal: admitted with uti and confusion;. 85 YOF ASHD AFib breast CA (refused treatment), OA DJD; Other Procedures: iv levaquin for uti; improved mental status;. has no relatives needs fdc NH; Hospital Course: seen by PT, recreation manager; long term care social worker NH placement. Condition: Stable - Instructions Diet, Activity, Other Instructions: tranfer to NH; falls aspiration DVT decubs PFX; f/u labs periodically; Disposition: HALF-WAY FACILITY - Home Medications Comprehensive Discharge Medication List: Ambulatory Orders Acetaminophen [Tylenol] 325 mg PO Q6H PRN #0 tablet 01/17/14 Albuterol 0.083% Nebulizer Shamika [Ventolin 0.083% Nebulizer Soln -] 1 neb NEB Q6H PRN #0 vial 01/17/14 Furosemide [Lasix -] 20 mg PO DAILY #30 tablet 01/17/14 Ramipril [Altace] 5 mg PO DAILY #0 tablet 01/17/14 Atorvastatin Ca [Lipitor] 20 mg PO HS #30 tablet 01/20/14 Carvedilol [Coreg -] 6.25 mg PO BID #60 tablet 01/20/14 Levothyroxine [Synthroid -] 75 mcg PO DAILY #30 tablet 01/20/14 Acetaminophen W/ Codeine #3 [Tylenol # 3 -] 1 combo PO Q8H PRN #60 tablet Apixaban [Eliquis -] 2.5 mg PO BID #60 tablet 04/23/14 Magnesium Oxide [Mag-Ox -] 400 mg PO BID #60 tablet 04/23/14 Sertraline HCl [Zoloft -] 25 mg PO DAILY #60 tablet 04/23/14
[2016-07-22 10:05] VITALS: PULSE 51
[2016-07-22] MEDS ORDERED: PT OWN MED DRAWER 7, Y5N ONE (10:31)
[2016-07-22] MEDS: FUROSEMIDE 20 MG TABLET (FP) PO SCH (10:32)
[2016-07-22] MEDS: CARVEDILOL 3.125 MG TABLET (FP) PO SCH (10:32)
[2016-07-22] MEDS: RAMIPRIL 5 MG CAPSULE (FP) PO SCH (10:32)
[2016-07-22] MEDS: LEVOFLOXACIN 250 MG IVPB 50 ML IVPB SCH (10:33)
[2016-07-22] MEDS: MAGNESIUM OXIDE 400 MG TABLET (FP) PO SCH (10:33)
[2016-07-22] MEDS: SERTRALINE HCL 25 MG TABLET (FP) PO SCH (10:33)
[2016-07-22] MEDS: APIXABAN 2.5 MG TABLET PO SCH (10:33)
--- NOTE | 2016-07-22 11:32 | PN ---
Progress Note (short form) - Note Progress Note: Pt seen and examined. States L wrist feels fine, she is not wearing her brace but has no pain. L wrist ROM is nl, she does not need P.T. Can DC from an orthopedic pov. F/u PRN
[2016-07-22 14:25] VITALS: BP 153/57; TEMP 98
== END 2016-07-22 16:02 | DRG 690 ==
LOC: JER 12:45 → JERBED 15:13 → J7W 17:07
PROVIDERS: ADMIT Internal Medicine; ATTEND Internal Medicine
PROC: 2W3DX1Z Immobilization of Left Lower Arm using Splint (ICD-10-PCS; principal; 2016-07-17)
DX: N39.0 Urinary tract infection, site not specified (principal); S52.502A Unspecified fracture of the lower end of left radius, initial encounter for closed fracture; R41.82 Altered mental status, unspecified; J44.9 Chronic obstructive pulmonary disease, unspecified; I48.91 Unspecified atrial fibrillation; I11.0 Hypertensive heart disease with heart failure; I50.9 Heart failure, unspecified; I25.2 Old myocardial infarction; C50.911 Malignant neoplasm of unspecified site of right female breast; J45.909 Unspecified asthma, uncomplicated; M85.88 Other specified disorders of bone density and structure, other site; M19.90 Unspecified osteoarthritis, unspecified site; M48.00 Spinal stenosis, site unspecified; R26.81 Unsteadiness on feet; W18.30XA Fall on same level, unspecified, initial encounter; Y93.9 Activity, unspecified; Y92.009 Unspecified place in unspecified non-institutional (private) residence as the place of occurrence of the external cause
CPT/HCPCS: 36415; 70450-TC; 71010-TC; 73110-TC-LT; 73130-TC-LT; 80048; 80053; 81003; 81015; 82550; 82607; 83735; 83880; 84443; 84484; 85025; 85027; 87086; 93005; 93010; 94640; 97116-GP; 97162-PG; 99283-25

== ENCOUNTER 2016-09-20 21:35 | Inpatient (IN) | payer OTHER ==
[2016-09-20 21:50] VITALS: BMI 22.6
[2016-09-20] MEDS ORDERED: ACETAMINOPHEN 325 MG TABLET (FP) PO ONE (22:01)
[2016-09-20] MEDS ORDERED: DIPHTH,PERTUSS(ACELL),TET 0.5 ML DISP.SYRIN IM ONE (22:01)
[2016-09-20] MEDS ORDERED: ACETAMINOPHEN 325 MG TABLET (FP) ONE (22:06)
--- NOTE | 2016-09-20 22:19 | PDOC ---
History of Present Illness - History of Present Illness Initial Comments: 09/20/16 22:22 The patient is an 85 year old female with history significant for hypertension, hyperlipidemia, CAD s/p stent, breast CA, atrial fibrillation, brought in by EMS complaining of right shoulder pain status post mechanical fall. The patient states she slipped on her neighbor's floor and fell on her right side, injuring her right shoulder. No head trauma or LOC. The patient denies any chest pain, shortness of breath, dizziness, or lightheadedness. She denies any headache, nausea, vomiting, or diaphoresis. She denies numbness or tingling in her RUE. She denies any other injury. PCP: Dr. Elicia Thompson <Lola Loco - Last Filed: 09/21/16 00:13> - General History Source: Patient, Old Records Exam Limitations: No Limitations <Toi Melton - Last Filed: 09/21/16 00:38> - General Chief Complaint: Injury Stated Complaint: FALL Time Seen by Provider: 09/20/16 21:41 Past History <Lola Loco - Last Filed: 09/21/16 00:13> - Past Medical History Cancer: Yes (- Right breast ductal carcinoma in situ) Cardiac Disorders: (Atrial Fibrilation, PR) COPD: Yes CHF: Yes Disorders: (Recurrent UTI) HTN: Yes Suicide Attempt (Hx): No - Surgical History Cardiac Surgery: (stents, MVR) Orthopedic Surgery: (Reduction of dislocated right shoulder - 3 weeks ago/ Unsuccessful) - Immunization History Immunization Up to Date: Yes - Psycho/Social/Smoking Cessation Hx Anxiety: No Suicidal Ideation: No Smoking History: Unknown if ever smoked Have you smoked in the past 12 months: No Information on smoking cessation initiated: No Hx Alcohol Use: No Drug/Substance Use Hx: No Substance Use Type: None Hx Substance Use Treatment: No <Toi Melton - Last Filed: 09/21/16 00:38> - Past Medical History Allergies/Adverse Reactions: Allergies Allergy/AdvReac Type Severity Reaction Status Date / Time Penicillins Allergy Unknown Verified 09/20/16 21:42 Home Medications: Ambulatory Orders Aspirin [ASA -] 325 mg PO PRN 09/20/16 Review of Systems - Review of Systems Able to Perform ROS?: Yes Comments:: 09/20/16 22:46 GENERAL/CONSTITUTIONAL: No fever or chills. No weakness. HEAD, EYES, EARS, NOSE AND THROAT: No change in vision. No ear pain or discharge. No sore throat CARDIOVASCULAR: No chest pain or shortness of breath. No LOC. RESPIRATORY: No cough, wheezing, or hemoptysis. GASTROINTESTINAL: No nausea, vomiting, diarrhea or constipation. GENITOURINARY: No dysuria, frequency, or change in urination. MUSCULOSKELETAL: R shoulder pain. No other joint or muscle swelling or pain. No neck or back pain. SKIN: R elbow abrasion. No rash NEUROLOGIC: No headache, vertigo, loss of consciousness, or change in strength/ sensation. ENDOCRINE: No increased thirst. No abnormal weight change. HEMATOLOGIC/LYMPHATIC: No anemia, easy bleeding, or history of blood clots. ALLERGIC/IMMUNOLOGIC: No hives or skin allergy. <Lola Loco - Last Filed: 09/21/16 00:13> *Physical Exam - Vital Signs Last Vital Signs Temp Pulse Resp BP Pulse Ox 97.8 F 61 18 183/69 99 09/20/16 21:42 09/20/16 21:42 09/20/16 21:42 09/20/16 21:42 09/20/16 21:42 - Physical Exam Comments: 09/20/16 22:48 GENERAL: Awake, alert, and fully oriented, in no acute distress HEAD: No signs of trauma EYES: PERRLA, EOMI, sclera anicteric, conjunctiva clear ENT: Auricles normal inspection, hearing grossly normal, nares patent, oropharynx clear without exudates. Moist mucosa NECK: Normal ROM, supple, no lymphadenopathy, JVD, or masses LUNGS: Breath sounds equal, clear to auscultation bilaterally. No wheezes, and no crackles HEART: Irregularly irregular, normal S1 and S2, no murmurs, rubs or gallops ABDOMEN: Soft, nontender, normoactive bowel sounds. No guarding, no rebound. No masses EXTREMITIES: Right upper extremity: Abrasion to the elbow, with full flexion and extension intact. Radian, median, and deltoid sensation intact. Diffuse tenderness over the shoulder. All other extremities: Normal range of motion, no edema. No clubbing or cyanosis. No cords, erythema, or tenderness NEUROLOGICAL: Cranial nerves II through XII grossly intact. Normal speech, gait deferred. SKIN: Warm, Dry, normal turgor, no rashes or lesions noted. <Lola Loco - Last Filed: 09/21/16 00:13> - Vital Signs Last Vital Signs Temp Pulse Resp BP Pulse Ox 97.8 F 61 18 183/69 99 09/20/16 21:42 09/20/16 21:42 09/20/16 21:42 09/20/16 21:42 09/20/16 21:42 <Toi Melton - Last Filed: 09/21/16 00:38> Heart Score/ECG Review #1 ECG reviewed & interpreted by me at: 23:00 09/21/16 00:05 atrial fibrillation 49, Q wave V1-V2, no std/mary, QTC 435 msec <Toi Melton - Last Filed: 09/21/16 00:38> ED Treatment Course - LABORATORY CBC & Chemistry Diagram: 09/20/16 22:22 09/20/16 22:22 - RADIOLOGY Radiology Studies Ordered: 09/21/16 00:07 X-ray of right shoulder, reviewed and interpreted by Imaging Machine Printer. FINDINGS: Diffuse osteopenia. Comminuted four-part intra-articular impacted fracture of the right humeral head involving the greater and lesser tuberosities as well as the surgical and anatomic necks with fracture extending into the proximal right humeral diaphysis. There is mild anterior positioning of the right humeral head raising possibility of anterior subluxation or dislocation. Arthrosis of the right acromioclavicular joint. There suggestion of possible age-indeterminate fracture deformity of the posterior medial 4 to 8 ribs. No right apical pneumothorax. There is a radiopaque body. IMPRESSION: Diffuse osteopenia. Comminuted four-part intra-articular impacted fracture of the right humeral head involving the greater and lesser tuberosities as well as the surgical and anatomic necks with fracture extending into the proximal right humeral diaphysis. Mild anterior positioning of the right humeral head raising possibility of anterior subluxation or dislocation. There suggestion of age-indeterminate fracture deformity of the posterior medial 4 to 8 ribs. Correlate with physical exam findings. THIS DOCUMENT HAS BEEN ELECTRONICALLY SIGNED Right shoulder x-ray, read and interpreted by Imaging Machine Printer reveals no acute fracture or dislocation. - Medications Given in the ED: ED Medications Discontinued Medications Generic Name Dose Route Start Last Admin Trade Name Lesq PRN Reason Stop Dose Admin Acetaminophen 975 mg 09/20/16 22:01 09/20/16 22:17 Tylenol - PO 09/20/16 22:02 975 mg ONCE ONE Administration Diphtheria/Tetanus/Acell Pertussis 0.5 ml 09/20/16 22:01 09/20/16 22:17 Boostrix - IM 09/20/16 22:02 0.5 ml .ONCE ONE Administration <Lola Loco - Last Filed: 09/21/16 00:13> - LABORATORY CBC & Chemistry Diagram: 09/20/16 22:22 09/20/16 22:22 - RADIOLOGY Radiology Studies Ordered: Category Date Time Status ELBOW-RIGHT [RAD] Stat Radiology 09/20/16 22:01 Ordered SHOULDER-RIGHT [RAD] Stat Radiology 09/20/16 22:01 Ordered <Toi Melton - Last Filed: 09/21/16 00:38> Medical Decision Making - Medical Decision Making 09/21/16 00:[address] Elicia Thompson, who agrees to admission. <Lola Loco - Last Filed: 09/21/16 00:13> - Medical Decision Making 09/20/16 22:18 A portion of this note was documented by scribe services under my direction. I have reviewed the details of the note, within reason, and agree with the documentation with the following case summary and management plan written by me. Patient treated in the ED. Nursing notes are reviewed and incorporated into the medical decision-making. Vital signs reviewed. Peripheral IV access obtained by the nurse, laboratory studies are drawn and sent, reviewed and interpreted by myself. Vital Signs Temp Pulse Resp BP Pulse Ox 97.8 F 61 18 183/69 99 09/20/16 21:42 09/20/16 21:42 09/20/16 21:42 09/20/16 21:42 09/20/16 21:42 85-year-old female history of CHF, hypertension, COPD, coronary disease status post PR, atrial fibrillation, recurrent UTIs, right breast ductal carcinoma presents with mechanical fall. Patient's reports that she slipped and let on her right shoulder. She reports severe pain at the right shoulder. She sustained a skin abrasion right elbow. Last tetanus is unknown. 09/21/16 00:09 Right shoulder xray reviewed: Communiuted four-part intra-articular impacted fracture of the right humeral head involving the greater and lesser tuberosities as well as the surgical and anatomic necks with fracture extending into the proximal right humeral diaphysis and anterior subluxation. CBC, BMP 09/20/16 22:22 09/20/16 22:22 CMP Sodium 140 mmol/L (136-145) 09/20/16 22:22 Potassium 4.6 mmol/L (3.5-5.1) 09/20/16 22:22 Chloride 101 mmol/L (98-107) 09/20/16 22:22 Carbon Dioxide 28 mmol/L (21-32) 09/20/16 22:22 Anion Gap 11 (8-16) 09/20/16 22:22 BUN 42 mg/dL (7-18) H D 09/20/16 22:22 Creatinine 1.5 mg/dL (0.55-1.02) H D 09/20/16 22:22 Creat Clearance w eGFR 32.92 (>60) 09/20/16 22:22 Random Glucose 124 mg/dL (74-106) H D 09/20/16 22:22 Calcium 8.8 mg/dL (8.5-10.1) 09/20/16 22:22 Total Bilirubin 0.4 mg/dL (0.2-1.0) D 09/20/16 22:22 AST 24 U/L (15-37) D 09/20/16 22:22 ALT 27 U/L (12-78) D 09/20/16 22:22 Alkaline Phosphatase 73 U/L (45-117) 09/20/16 22:22 Total Protein 6.7 g/dl (6.4-8.2) D 09/20/16 22:22 Albumin 3.8 g/dl (3.4-5.0) D 09/20/16 22:22 The patient also has FATIMAH in addition to her right shoulder fracture. Given her ?dementia history and according to Dr. Thompson, pt is on eliquis for her afib, will perform head CT. Case discussed with Dr. Elicia Thompson. She accepts patient for med/surg admission. Case discussed in detail with admitting physician including history, physical exam and ancillary studies. Admitting physician has assumed care for the patient, will follow all pending diagnostics and will complete the evaluation and treatment. <Toi Melton - Last Filed: 09/21/16 00:38> *DC/Admit/Observation/Transfer - Attestations Scribe Attestion: 09/20/16 22:49 Documentation prepared by Lola Loco, acting as medical device sales for Toi Melton MD. <Lola Loco - Last Filed: 09/21/16 00:13> - Discharge Dispostion Admit: Yes <Toi Melton - Last Filed: 09/21/16 00:38> Diagnosis at time of Disposition: Shoulder fracture, right Qualifiers: Encounter type: initial encounter Fracture type: closed Qualified Code(s): S42.91XA - Fracture of right shoulder girdle, part unspecified, initial encounter for closed fracture - Referrals Referrals: Elicia Thompson [Primary Care Provider] -
[2016-09-20 22:59] LABS: BASOPHIL 0.3 % (0-2.0); EOSINOPHIL 2.5 % (0-4.5); MCH 29.9 pg (25.7-33.7); MCHC 33.1 g/dl (32.0-36.0); MEAN CELL VOLUME 90.4 fl (80-96); MEAN PLT VOLUME 8.1 fl (7.5-11.1); NEUTROPHILS 70.8 % (42.8-82.8); PLATELET COUNT 261 K/MM3 (134-434); RDW 17.2 % (11.6-15.6); WHITE BLOOD COUNT 8.4 K/mm3 (4.0-10.0)
[2016-09-20 23:25] LABS: INR 1.76 (0.82-1.09); PROTHROMBIN TIME (PATIENT) 19.6 SEC (9.98-11.88)
[2016-09-20] MEDS ORDERED: morphine CARPU-JECT 4 MG/1 ML DISP.SYRIN IVPUSH ONE (23:25)
[2016-09-20 23:27] LABS: ACTIVATED PTT 33.3 SECONDS (26.9-34.4); ALBUMIN 3.8 g/dl (3.4-5.0); BILIRUBIN,TOTAL 0.4 mg/dL (0.2-1.0); CALCIUM 8.8 mg/dL (8.5-10.1); TOT PROT 6.7 g/dl (6.4-8.2)
[2016-09-20 23:28] LABS: COCKROFT - GAULT 26.9875; CREATININE 1.5 mg/dL (0.55-1.02)
[2016-09-20] MEDS ORDERED: morphine CARPU-JECT 4 MG/1 ML DISP.SYRIN ONE (23:39)
[2016-09-20] MEDS ORDERED: MIDAZOLAM HCL 2 MG/2 ML SINGLE DOSE VIAL IVPUSH ONE (23:59)
[2016-09-21] MEDS ORDERED: MIDAZOLAM HCL 2 MG/2 ML SINGLE DOSE VIAL ONE (00:02)
[2016-09-21] MEDS: SODIUM CHLORIDE 1,000 ML IV SCH (01:59)
[2016-09-21] MEDS ORDERED: morphine CARPU-JECT 2 MG/1 ML DISP.SYRIN ONE ×2 (08:26→09:47)
[2016-09-21] MEDS: morphine CARPU-JECT 2 MG/1 ML DISP.SYRIN IVPUSH PRN ×2 (08:30→21:16)
[2016-09-21] MEDS ORDERED: morphine CARPU-JECT 2 MG/1 ML DISP.SYRIN IVPUSH ONE (09:55)
--- NOTE | 2016-09-21 10:20 | HP ---
Admitting History and Physical - Primary Care Physician PCP: Elicia Thompson S - Admission Chief Complaint: fall and R shoulder pain, unable to move it History of Present Illness: The patient is an 85 year old female NHR at [facility] with history significant for hypertension, hyperlipidemia, CAD s/p stent, breast CA, atrial fibrillation, brought in by EMS complaining of right shoulder pain status post mechanical fall. The patient states she slipped on her neighbor's floor and fell on her right side, injuring her right shoulder. Unable to move RUE. No head trauma or LOC. The patient denies any chest pain, shortness of breath, dizziness, or lightheadedness. She denies any headache, nausea, vomiting, or diaphoresis. She denies numbness or tingling in her RUE. She denies any other injury. Pt does not remember falling and does not remember what happened and how she eneded up in ER; syncope? pt also has some h/o dementia History Source: Patient, Medical Record, Transfer Record Limitations to Obtaining History: Clinical Condition, Dementia - Past Medical History [employer]: Yes: Peripheral Neuropathy Cardiovascular: Yes: AFIB, CAD, CHF, HTN Pulmonary: Yes: Asthma, COPD. No: O2 Dependent Renal/: Yes: Cancer (Breast CA) Heme/Onc: Yes: Cancer (Breast CA), Myeloproliferative Synd Musculoskeletal: Yes: Chronic low back pain Rheumatology: Yes: Other (OA/DJD, spinal stenosis) Endocrine: Yes: Osteopenia - Smoking History Smoking history: Unknown if ever smoked Have you smoked in the past 12 months: No - Alcohol/Substance Use Hx Alcohol Use: No History of Substance Use: reports: None - Social History Usual Living Arrangement: Yes: Half-Way ADL: Independent ([employer]) History of Recent Travel: No Home Medications - Allergies Allergies/Adverse Reactions: Allergies Allergy/AdvReac Type Severity Reaction Status Date / Time Penicillins Allergy Unknown Verified 09/20/16 21:42 - Home Medications Home Medications: Ambulatory Orders Aspirin [ASA -] 325 mg PO DAILY 09/20/16 Aa/Hydrolyzed Collagen, Whey [Lps 15-30 Liquid] 30 ml PO DAILY 09/21/16 Acetaminophen [Tylenol] 650 mg PO Q6H PRN 09/21/16 Albuterol 0.083% Nebulizer Shamika [Ventolin 0.083%] 1 neb NEB Q4H PRN 09/21/16 Apixaban [Eliquis] 2.5 mg PO BID 09/21/16 Atorvastatin Ca [Lipitor] 40 mg PO HS 09/21/16 Carvedilol [Coreg -] 6.25 mg PO BID 09/21/16 Furosemide [Lasix -] 20 mg PO DAILY 09/21/16 Levothyroxine [Synthroid -] 75 mcg PO DAILY 09/21/16 Magnesium Oxide 400 mg PO BID 09/21/16 Ramipril [Altace] 5 mg PO DAILY 09/21/16 Family Disease History - Family Disease History Family Disease History: Other: Father (CVA 80's), Mother (RA 60's) Review of Systems - Review of Systems Constitutional: denies: Chills, Fever, Lethargy, Loss of Appetite Eyes: denies: Blind Spots, Blurred Vision, Double Vision HENT: denies: Difficult Swallowing, Ear Pain Neck: denies: Stiffness, Tenderness Cardiovascular: denies: Chest Pain, Edema, Palpitations, Shortness of Breath Respiratory: denies: Cough, Hemoptysis, Orthopnea, PND, SOB, Wheezing Gastrointestinal: denies: Abdominal Pain, Bloating, Constipation, Diarrhea, Melena, Vomiting, Vomiting Blood Genitourinary: denies: Dysuria, Flank Pain Musculoskeletal: reports: Back Pain (chronic with moving), Extremity Pain (RUE pain unable to move it) Neurological: reports: Change in LOC (most likely since pt does not remember how she fell or how she came to ER) Hematology/Lymphatic: denies: Easily Bruised, Excessive Bleeding Psychiatric: reports: Anxiety. denies: Altered Sleep Pattern, Depression, Suicidal Physical Examination Vital Signs: Vital Signs Temperature 97.8 F 09/20/16 21:42 Pulse Rate 56 L 09/21/16 07:00 Respiratory Rate 16 09/21/16 07:00 Blood Pressure 104/62 09/21/16 07:00 O2 Sat by Pulse Oximetry (%) 100 09/21/16 07:00 Constitutional: Yes: No Distress, Calm Eyes: Yes: Conjunctiva Clear HENT: Yes: Atraumatic Neck: Yes: Supple Cardiovascular: No: Regular Rate and Rhythm Respiratory: Yes: CTA Bilaterally Gastrointestinal: Yes: Soft. No: Distention, Tenderness Renal/: No: CVA Tenderness - Left, CVA Tenderness - Right, Hematuria Musculoskeletal: Yes: Other (RUE in sling unable to move; has bruises around shoulder and upper humerus). No: Joint Stiffness, Joint Swelling Extremities: No: Cold, Cool Edema: No Peripheral Pulses WNL: Yes Integumentary: No: Rash, Venous Stasis Changes Neurological: Yes: WNL, Alert, Weakness (general). No: Oriented (to person and place not in time) ...Motor Strength: WNL Psychiatric: Yes: WNL, Alert. No: Oriented, Agitated, Suicidal Ideation Imaging - Results Chest X-ray: Report Reviewed X-ray: Report Reviewed Cat Scan: Report Reviewed Other: Report Reviewed Assessment/Plan The patient is an 85 year old female NHR with history significant for hypertension, hyperlipidemia, CAD s/p stent, breast CA, atrial fibrillation, brought in by EMS complaining of right shoulder pain status post mechanical fall. Found to have communited humeral fracture and fracture dislocation; also ? syncope? admit ortho eval, possibly surgery needed cardiology eval preop and for ASHD pain meds DVT falls decubs and aspiration PFX pt has no living relative or NOK; also has h/o dementia; consent for surgery? if needed? prognosis guarded d/w pt and staff; nurse to put in meds from [facility] so I can do reconciliation t time 75 min
[2016-09-21] MEDS ORDERED: ALBUTEROL SO4 0.083% IH SOL 2.5 MG/3 ML VIAL.NEB. NEB PRN (13:26)
[2016-09-21] MEDS ORDERED: ACETAMINOPHEN 325 MG TABLET (FP) PO PRN (13:26)
[2016-09-21 14:20] LABS: URINE APPEARANCE CLEAR; URINE BILIRUBIN NEGATIVE (NEGATIVE); URINE BLOOD NEGATIVE (NEGATIVE); URINE COLOR LT. YELLOW; URINE GLUCOSE (UA) NEGATIVE (NEGATIVE); URINE KETONE NEGATIVE (NEGATIVE); URINE LEUK ESTERASE NEGATIVE (NEGATIVE); URINE NITRITE NEGATIVE (NEGATIVE); URINE PROTEIN NEGATIVE (NEGATIVE); URINE UROBILINOGEN 0.2 E.U/dl E.U./dl (0.2-1.0)
--- NOTE | 2016-09-21 15:25 | PN ---
Progress Note (short form) - Note Progress Note: Pt seen and examined in the ER. She is am 85 yo F pt s/p fall 1 day ago, with c/ o pain right shoulder. She has a well documented history of an unstable, chronic shoulder dislocation. I reduced it in the OR on 01-19-2014, and it was highly unstable at that time (going in and out of joint). Surgery not recommended, would have to be a reverse total shoulder replacement, which might also be unstable. ANUP CONTRERAS is NVI. Excellent ROM of the right elbow, forearm, wrist, fingers. + tender and mildly swollen over the right shoulder. Xrays Confirm a chronically dislocated right shoulder, and an acute, nondisplaced proximal humerus fracture. Imp 85 yo F with an acute, nondisplaced proximal humerus fracture, and a chronic shoulder dislocation. Rec Only a sling, and P.T. later as an out pt. Ice Pain meds No surgery, not recommending an attempt at reduction in the OR, or the ER.
--- NOTE | 2016-09-21 16:12 | PN ---
Progress Note (short form) - Note Progress Note: Chief Complaint: Events noted, notes reviewed, complaining of right shoulder discomfort, patient denies any chest discomfort or dyspnea History of Present Illness: Seen and examined in the emergency room. Full consult dictated - Current Medication List Current Medications Acetaminophen (Tylenol -) 650 mg PO Q6H PRN PRN Reason: pain,fever Albuterol Sulfate (Ventolin 0.083% Nebulizer Soln -) 1 amp NEB Q4H PRN PRN Reason: sob Apixaban (Eliquis -) 2.5 mg PO BID [facility] Atorvastatin Calcium (Lipitor -) 40 mg PO HS [facility] Carvedilol (Coreg -) 6.25 mg PO BID [facility] Furosemide (Lasix -) 20 mg PO DAILY [facility] Sodium Chloride (Normal Saline -) 1,000 mls @ 42 mls/hr IV ASDIR [facility] Last Admin: 09/21/16 01:59 Dose: 42 mls/hr Levothyroxine Sodium (Synthroid -) 75 mcg PO DAILY@0700 [facility] Magnesium Oxide (Mag-Ox -) 400 mg PO BID [facility] Morphine Sulfate (Morphine Injection -) 2 mg IVPUSH Q4H PRN PRN Reason: PAIN Last Admin: 09/21/16 08:30 Dose: 2 mg Non-Formulary Medication (Aa/Hydrolyzed Collagen, Whey [Lps 15-30 Liquid]) 30 ml PO DAILY [facility] Ramipril (Altace -) 5 mg PO DAILY [facility] - Objective Vital Signs: Last Vital Signs Temp Pulse Resp BP Pulse Ox 97.9 F 80 18 162/76 97 09/21/16 15:55 09/21/16 15:55 09/21/16 15:55 09/21/16 15:55 09/21/16 13:14 Constitutional: No Distress, Calm, Thin Cardiovascular: S1-S2 irregularly irregular 1-2/6 SM Respiratory: Clear to auscultation and percussion Bilaterally Gastrointestinal: Soft benign Normal Bowel Sounds Ext: No Edema Labs: CBC, BMP 09/20/16 22:22 09/20/16 22:22 INR, PTT INR 1.76 (0.82-1.09) H 09/20/16 22:22 Assessment/Plan ASSESSMENT: 1. Post mechanical fall, chronically dislocated right shoulder currently with an acute, non-displaced proximal humerus fracture for conservative medical management 2. Coronary artery disease angina pectoris 3. Diastolic left ventricular dysfunction with chronic class 0-I [place] Heart [employer] classification left ventricular failure 4. Permanent Atrial fibrillation [id number] score of 5 on chronic anticoagulation therapy with NOAC's 5. HTN 6. Hypercholesterolemia 7. Hypothyroidism 8. Chronic kidney disease 9. Severe OA/DJD 10. History of spinal stenosis PLAN: 1. Since surgical intervention is not planned would recommend continuation of Apixaban (Eliquis) at 2.5 mg PO BID 2. Continue Atorvastatin Calcium (Lipitor) 3. Continue Carvedilol (Coreg) 4. Continue Ramipril (Altace) 5. Continue Furosemide (Lasix) 6. Pain management as per the primary team 7. Initiation of physical therapy Ulysses Loaiza MD
--- NOTE | 2016-09-21 18:16 | CONS ---
PRE-PROCEDURE CARDIOVASCULAR EVALUATION DATE OF CONSULTATION: 09/21/2016 CONSULTATION REQUESTED BY: Elicia Thompson MD CHIEF COMPLAINT: Pre-procedure cardiovascular evaluation in a patient with known history of coronary artery disease, angina pectoris, diastolic left ventricular dysfunction with class 0-1 [place] Heart [employer] classification left ventricular failure, paroxysmal atrial fibrillation on chronic anti-coagulation therapy. HISTORY OF PRESENT ILLNESS: The patient is an 85-year-old female with a known history of coronary artery disease, angina pectoris, diastolic left ventricular dysfunction with chronic class 0-1 [place] [employer] classification left ventricular failure, persistent atrial fibrillation, CHADS VASc score of 5/on chronic anti-coagulation therapy with Eliquis, hypertensive cardiovascular disease, hypercholesterolemia, advanced degenerative joint disease and spinal stenosis. She is a resident of an [facility] care facility. She presented to [facility] after sustaining a fall and was noted to have a fractured humerus. Initially, surgical intervention was entertained, in view of which a cardiovascular evaluation was requested pre-procedure. Surgical evaluation deemed that the patient is not an appropriate candidate for surgical intervention considering her prior history of chronic right shoulder dislocation. Upon questioning the patient, she had reported the above-noted mechanical fall. She did not report any preceding palpitations or dizziness. The patient did not report any loss of consciousness. The patient denies any chest discomfort. The patient denies any dyspnea, orthopnea, paroxysmal nocturnal dyspnea or peripheral edema. PAST MEDICAL HISTORY: Coronary artery disease, angina pectoris, diastolic left ventricular dysfunction with chronic class 0-1 [place] [employer] classification left ventricular failure, persistent atrial fibrillation/on chronic anti-coagulation therapy with Eliquis, hypertensive cardiovascular disease, hypercholesterolemia, hypothyroidism, chronic kidney disease, advanced degenerative joint disease, spinal stenosis. SOCIAL HISTORY: Resident of an extended care facility. FAMILY HISTORY: No family history of coronary artery disease. ALLERGIES: PENICILLIN. CURRENT MEDICAL THERAPY: Acetaminophen 650 mg every 6 hours, Ventolin nebulizer every 4 hours as needed, Eliquis 2.5 mg twice a day, Lipitor 40 mg once a day, Coreg 6.25 mg twice a day, Lasix 20 mg once a day, Synthroid 75 mcg once a day, magnesium oxide 400 mg twice a day, morphine sulfate 2 mg every 4 hours as needed, Altace 5 mg once a day. REVIEW OF SYSTEMS: Head and neck: Denies headache, photophobia, blurring of vision. Respiratory: No cough or sputum production. Cardiovascular: As noted above. Gastrointestinal: Denies nausea, vomiting, diarrhea, abdominal discomfort. Genitourinary: No symptoms reported. Musculoskeletal: Right shoulder discomfort. PHYSICAL EXAM: Vital signs: Blood pressure is 162/76 mmHg. Pulse rate is 80 beats per minute. Head and neck: Pupils equally reactive to light and accommodation. Extraocular muscles intact. Anicteric sclera. Negative JVD. No bruit appreciated. Chest: Clear to auscultation and percussion . Cardiovascular: S1, S2. Regularly irregular. Grade 1-2/6 systolic apical murmur. No clicks or gallops. Abdomen: Soft, benign . Normal bowel sounds. Extremities: Negative edema. Intact distal pulses. CBC reveals a white cell count of 8.4, hemoglobin 11.1, platelet count 261. Basic metabolic profile reveals sodium 140, potassium 4.6. BUN of 42, creatinine 1.5. Glucose 124, INR 1.76. Electrocardiogram: Not available on the electronic chart. ASSESSMENT: 1. Post mechanical fall. Chronically dislocated right shoulder, currently with an acute, nondisplaced proximal humerus fracture for conservative medical management. 2. Coronary artery disease, angina pectoris. 3. Diastolic left ventricular dysfunction with chronic class 0-1 [place] [employer] classification left ventricular failure. 4. Permanent atrial fibrillation, CHADS2 VASc score of 5, on chronic anti-coagulation therapy with Eliquis. 5. Hypertension. 6. Hypercholesterolemia. 7. Hypothyroidism. 8. Chronic kidney disease. 9. Severe osteoarthritis, degenerative joint disease. 10. History of spinal stenosis. PLAN: 1. Since surgical intervention is not an option and is not planned, would recommend continuation of Eliquis therapy at 2.5 mg twice daily, considering patient's age and creatinine value. 2. Continuation of Lipitor therapy. 3. Continuation of Coreg therapy. 4. Continuation of Altace therapy. 5. Continuation of Lasix therapy. 6. Pain management as per the primary team. 7. Initiation of physical therapy. Thank you for your kind referral. STONEY BRAVO M.D. [id number]
--- NOTE | 2016-09-21 18:23 | EKG ---
Test Reason : Blood Pressure : / mmHG Vent. Rate : 049 BPM Atrial Rate : 075 BPM P-R Int : 000 ms QRS Dur : 078 ms QT Int : 482 ms P-R-T Axes : 000 037 047 degrees QTc Int : 435 ms ATRIAL FIBRILLATION WITH SLOW VENTRICULAR RESPONSE SEPTAL INFARCT (CITED ON OR BEFORE 16-JUL-2016) ABNORMAL ECG WHEN COMPARED WITH ECG OF 16-JUL-2016 13:16, T WAVE INVERSION NO LONGER EVIDENT IN INFERIOR LEADS INVERTED T WAVES HAVE REPLACED NONSPECIFIC T WAVE ABNORMALITY IN LATERAL LEADS CLINICAL CORRELATION IS RECOMMENDED Confirmed by SEHLLY BEASLEY, STONEY ([id number]) on 09/21/2016 6:23:33 PM Referred By: Confirmed By:STONEY BRAVO MD
[2016-09-21] MEDS: MAGNESIUM OXIDE 400 MG TABLET (FP) PO SCH (21:16)
[2016-09-21] MEDS: ATORVASTATIN CA 40 MG TABLET (FP) PO SCH (21:16)
[2016-09-21] MEDS: CARVEDILOL 6.25 MG TABLET (FP) PO SCH (21:17)
[2016-09-21] MEDS: APIXABAN 2.5 MG TABLET PO SCH (22:59)
[2016-09-22] MEDS: SODIUM CHLORIDE 1,000 ML IV SCH ×2 (02:21→11:24)
[2016-09-22] MEDS: morphine CARPU-JECT 2 MG/1 ML DISP.SYRIN IVPUSH PRN ×3 (02:24→21:30)
[2016-09-22] MEDS: LEVOTHYROXINE NA 75 MCG TABLET (FP) PO SCH (06:11)
--- NOTE | 2016-09-22 09:44 | PN ---
Progress Note, Physician Chief Complaint: in bed NAD with arm pain on/off severe decreased urinary output; bedside US c/w urinary retention; nurse unable to pass Coyle in; called - Current Medication List Current Medications: Active Medications Acetaminophen (Tylenol -) 650 mg PO Q6H PRN PRN Reason: pain,fever Albuterol Sulfate (Ventolin 0.083% Nebulizer Soln -) 1 amp NEB Q4H PRN PRN Reason: sob Apixaban (Eliquis -) 2.5 mg PO BID [facility] Last Admin: 09/21/16 22:59 Dose: 2.5 mg Atorvastatin Calcium (Lipitor -) 40 mg PO HS [facility] Last Admin: 09/21/16 21:16 Dose: 40 mg Carvedilol (Coreg -) 6.25 mg PO BID [facility] Last Admin: 09/21/16 21:17 Dose: 6.25 mg Furosemide (Lasix -) 20 mg PO DAILY [facility] Sodium Chloride (Normal Saline -) 1,000 mls @ 42 mls/hr IV ASDIR [facility] Last Admin: 09/22/16 02:21 Dose: Not Given Levothyroxine Sodium (Synthroid -) 75 mcg PO DAILY@0700 [facility] Last Admin: 09/22/16 06:11 Dose: 75 mcg Magnesium Oxide (Mag-Ox -) 400 mg PO BID [facility] Last Admin: 09/21/16 21:16 Dose: 400 mg Morphine Sulfate (Morphine Injection -) 2 mg IVPUSH Q4H PRN PRN Reason: PAIN Last Admin: 09/22/16 09:06 Dose: 2 mg Non-Formulary Medication (Aa/Hydrolyzed Collagen, Whey [Lps 15-30 Liquid]) 30 ml PO DAILY [facility] Ramipril (Altace -) 5 mg PO DAILY [facility] - Objective Vital Signs: Vital Signs Temperature 98.1 F 09/22/16 09:28 Pulse Rate 71 09/22/16 09:28 Respiratory Rate 20 09/22/16 09:28 Blood Pressure 132/62 09/22/16 09:28 O2 Sat by Pulse Oximetry (%) 97 09/21/16 13:14 Constitutional: Yes: No Distress, Calm Eyes: Yes: Conjunctiva Clear HENT: Yes: Atraumatic Neck: Yes: Supple Cardiovascular: No: Regular Rate and Rhythm Respiratory: Yes: Diminished Gastrointestinal: Yes: Soft. No: Distention, Tenderness Genitourinary: No: CVA Tenderness - Left, CVA Tenderness - Right Musculoskeletal: No: Joint Stiffness, Joint Swelling Extremities: No: Cold, Cool Edema: No Integumentary: No: Rash, Venous Stasis Changes Neurological: Yes: WNL, Alert, Oriented ...Motor Strength: WNL Psychiatric: Yes: WNL, Alert, Oriented. No: Agitated Labs: INR, PTT INR 1.76 (0.82-1.09) H 09/20/16 22:22 - ....Imaging Other: Report Reviewed Assessment/Plan The patient is an 85 year old female NHR with history significant for hypertension, hyperlipidemia, CAD s/p stent, breast CA, atrial fibrillation, brought in by EMS complaining of right shoulder pain status post mechanical fall. Found to have communited humeral fracture and fracture dislocation; also possible syncope admitted to inpt, stable since admission ortho NO surgery needed cardiology eval for ASHD Afib, syncope w/u urinary retention: check renal and pelvic US, eval; possible sec to morphine and bed immobilization; start flomax pain meds DVT falls decubs and aspiration PFX pt has no living relative or NOK; also has h/o dementia; prognosis guarded d/w pt and staff; t time 35 min
[2016-09-22] MEDS ORDERED: PATIENT'S OWN MEDICATION (NON-FORMULARY) (Aa/Hydrolyzed Collagen, Whey [Lps 15-30 Liquid] PO SCH (10:00)
[2016-09-22] MEDS ORDERED: PT OWN MED DRAWER 7, Y5N ONE ×2 (11:21→21:28)
[2016-09-22] MEDS: FUROSEMIDE 20 MG TABLET (FP) PO SCH (11:23)
[2016-09-22] MEDS: RAMIPRIL 5 MG CAPSULE (FP) PO SCH (11:23)
[2016-09-22] MEDS: APIXABAN 2.5 MG TABLET PO SCH ×2 (11:23→21:30)
[2016-09-22] MEDS: MAGNESIUM OXIDE 400 MG TABLET (FP) PO SCH ×2 (11:24→21:30)
[2016-09-22] MEDS: CARVEDILOL 6.25 MG TABLET (FP) PO SCH ×2 (11:24→21:30)
--- NOTE | 2016-09-22 14:47 | PN ---
Progress Note (short form) - Note Progress Note: Chief Complaint: Events noted, notes reviewed, complaining of persistent right shoulder discomfort, patient denies any chest discomfort or dyspnea History of Present Illness: Seen and examined. Events noted, notes reviewed, complaining of persistent right shoulder discomfort, patient denies any chest discomfort or dyspnea - Current Medication List Current Medications Acetaminophen (Tylenol -) 650 mg PO Q6H PRN PRN Reason: pain,fever Albuterol Sulfate (Ventolin 0.083% Nebulizer Soln -) 1 amp NEB Q4H PRN PRN Reason: sob Apixaban (Eliquis -) 2.5 mg PO BID [facility] Last Admin: 09/22/16 11:23 Dose: 2.5 mg Atorvastatin Calcium (Lipitor -) 40 mg PO HS [facility] Last Admin: 09/21/16 21:16 Dose: 40 mg Carvedilol (Coreg -) 6.25 mg PO BID [facility] Last Admin: 09/22/16 11:24 Dose: 6.25 mg Furosemide (Lasix -) 20 mg PO DAILY [facility] Last Admin: 09/22/16 11:23 Dose: 20 mg Sodium Chloride (Normal Saline -) 1,000 mls @ 42 mls/hr IV ASDIR [facility] Last Admin: 09/22/16 11:24 Dose: 42 mls/hr Levothyroxine Sodium (Synthroid -) 75 mcg PO DAILY@0700 [facility] Last Admin: 09/22/16 06:11 Dose: 75 mcg Magnesium Oxide (Mag-Ox -) 400 mg PO BID [facility] Last Admin: 09/22/16 11:24 Dose: 400 mg Morphine Sulfate (Morphine Injection -) 2 mg IVPUSH Q4H PRN PRN Reason: PAIN Last Admin: 09/22/16 09:06 Dose: 2 mg Ramipril (Altace -) 5 mg PO DAILY [facility] Last Admin: 09/22/16 11:23 Dose: 5 mg Tamsulosin HCl (Flomax -) 0.4 mg PO DAILY@0830 [facility] - Objective Vital Signs: Last Vital Signs Temp Pulse Resp BP Pulse Ox 98.3 F 74 20 128/57 97 09/22/16 14:15 09/22/16 14:15 09/22/16 09:28 09/22/16 14:15 09/21/16 13:14 Constitutional: No Distress, Calm, Thin Cardiovascular: S1-S2 irregularly irregular 1-2/6 SM Respiratory: Clear to auscultation and percussion Bilaterally Gastrointestinal: Soft benign Normal Bowel Sounds Ext: No Edema Labs: CBC, BMP 09/20/16 22:22 09/20/16 22:22 INR, PTT INR 1.76 (0.82-1.09) H 09/20/16 22:22 Assessment/Plan ASSESSMENT: 1. Post mechanical fall, chronically dislocated right shoulder currently with an acute, non-displaced proximal humerus fracture for conservative medical management 2. Coronary artery disease angina pectoris 3. Diastolic left ventricular dysfunction with chronic class 0-I [place] [employer] classification left ventricular failure 4. Permanent Atrial fibrillation [id number] score of 5 on chronic anticoagulation therapy with NOAC's 5. HTN 6. Hypercholesterolemia 7. Hypothyroidism 8. Chronic kidney disease 9. Severe OA/DJD 10. History of spinal stenosis PLAN: 1. As outlined in yesterday's note since surgical intervention is not planned would recommend continuation of Apixaban (Eliquis) at 2.5 mg PO BID 2. Continue Atorvastatin (Lipitor) 3. Continue Carvedilol (Coreg) 4. Continue Ramipril (Altace) 5. Continue Furosemide (Lasix) 6. Pain management as per the primary team 7. Initiate physical therapy Ulysses Loaiza MD
[2016-09-22] MEDS: ATORVASTATIN CA 40 MG TABLET (FP) PO SCH (21:30)
[2016-09-23] MEDS: SODIUM CHLORIDE 1,000 ML IV SCH ×2 (02:18→09:46)
[2016-09-23] MEDS: LEVOTHYROXINE NA 75 MCG TABLET (FP) PO SCH (06:09)
[2016-09-23] MEDS ORDERED: PT OWN MED DRAWER 7, Y5N ONE ×2 (09:35→21:38)
[2016-09-23] MEDS: TAMSULOSIN HCL 0.4 MG CAP.ER.24H (FP) PO SCH (09:46)
[2016-09-23] MEDS: RAMIPRIL 5 MG CAPSULE (FP) PO SCH (09:46)
[2016-09-23] MEDS: CARVEDILOL 6.25 MG TABLET (FP) PO SCH ×2 (09:46→21:42)
[2016-09-23] MEDS: MAGNESIUM OXIDE 400 MG TABLET (FP) PO SCH ×2 (09:46→21:42)
[2016-09-23] MEDS: FUROSEMIDE 20 MG TABLET (FP) PO SCH (09:46)
[2016-09-23] MEDS: APIXABAN 2.5 MG TABLET PO SCH ×2 (09:46→21:42)
--- NOTE | 2016-09-23 10:21 | PN ---
Progress Note, Physician History of Present Illness: Right shoulder discomfort, denies chest pain or dyspnea. - Current Medication List Current Medications: Active Medications Acetaminophen (Tylenol -) 650 mg PO Q6H PRN PRN Reason: pain,fever Albuterol Sulfate (Ventolin 0.083% Nebulizer Soln -) 1 amp NEB Q4H PRN PRN Reason: sob Apixaban (Eliquis -) 2.5 mg PO BID [facility] Last Admin: 09/23/16 09:46 Dose: 2.5 mg Atorvastatin Calcium (Lipitor -) 40 mg PO HS [facility] Last Admin: 09/22/16 21:30 Dose: 40 mg Carvedilol (Coreg -) 6.25 mg PO BID [facility] Last Admin: 09/23/16 09:46 Dose: 6.25 mg Furosemide (Lasix -) 20 mg PO DAILY [facility] Last Admin: 09/23/16 09:46 Dose: 20 mg Sodium Chloride (Normal Saline -) 1,000 mls @ 42 mls/hr IV ASDIR [facility] Last Admin: 09/23/16 09:46 Dose: 42 mls/hr Levothyroxine Sodium (Synthroid -) 75 mcg PO DAILY@0700 [facility] Last Admin: 09/23/16 06:09 Dose: 75 mcg Magnesium Oxide (Mag-Ox -) 400 mg PO BID [facility] Last Admin: 09/23/16 09:46 Dose: 400 mg Morphine Sulfate (Morphine Injection -) 2 mg IVPUSH Q4H PRN PRN Reason: PAIN Last Admin: 09/22/16 21:30 Dose: 2 mg Ramipril (Altace -) 5 mg PO DAILY [facility] Last Admin: 09/23/16 09:46 Dose: 5 mg Tamsulosin HCl (Flomax -) 0.4 mg PO DAILY@0830 [facility] Last Admin: 09/23/16 09:46 Dose: 0.4 mg - Objective Vital Signs: Vital Signs Temperature 99.5 F 09/23/16 06:00 Pulse Rate 71 09/23/16 06:00 Respiratory Rate 20 09/23/16 06:00 Blood Pressure 158/69 09/23/16 06:00 O2 Sat by Pulse Oximetry (%) 97 09/21/16 13:14 Constitutional: Yes: No Distress, Calm Cardiovascular: Yes: Pulse Irregular, Murmur (1/6 SM) Respiratory: Yes: Regular, CTA Bilaterally Gastrointestinal: Yes: Normal Bowel Sounds, Soft Edema: No Labs: INR, PTT INR 1.76 (0.82-1.09) H 09/20/16 22:22 Problem List - Problems (1) Shoulder fracture, right Code(s): S42.91XA - FRACTURE OF RIGHT SHOULDER GIRDLE, PART UNSP, INIT Qualifiers: Encounter type: initial encounter Fracture type: closed Qualified Code(s): S42.91XA - Fracture of right shoulder girdle, part unspecified, initial encounter for closed fracture (2) Atrial fibrillation Code(s): I48.91 - UNSPECIFIED ATRIAL FIBRILLATION Qualifiers: Atrial fibrillation type: persistent Qualified Code(s): I48.1 - Persistent atrial fibrillation (3) CHF (congestive heart failure) Code(s): I50.9 - HEART FAILURE, UNSPECIFIED Qualifiers: Congestive heart failure type: diastolic Congestive heart failure chronicity: chronic Qualified Code(s): I50.32 - Chronic diastolic ( congestive) heart failure (4) Fall Code(s): W19.XXXA - UNSPECIFIED FALL, INITIAL ENCOUNTER Qualifiers: Encounter type: subsequent encounter Qualified Code(s): W19.XXXD - Unspecified fall, subsequent encounter (5) Anemia Code(s): D64.9 - ANEMIA, UNSPECIFIED Qualifiers: Anemia type: unspecified type Qualified Code(s): D64.9 - Anemia, unspecified (6) Hyperlipidemia Code(s): E78.5 - HYPERLIPIDEMIA, UNSPECIFIED Qualifiers: Hyperlipidemia type: pure hypercholesterolemia Qualified Code(s): E78.00 - Pure hypercholesterolemia, unspecified; E78.0 - Pure hypercholesterolemia (7) Hypothyroidism Code(s): E03.9 - HYPOTHYROIDISM, UNSPECIFIED Qualifiers: Hypothyroidism type: unspecified Qualified Code(s): E03.9 - Hypothyroidism, unspecified (8) Hypertensive cardiomyopathy Code(s): I11.9 - HYPERTENSIVE HEART DISEASE WITHOUT HEART FAILURE I42.9 - CARDIOMYOPATHY, UNSPECIFIED Qualifiers: Heart failure presence: without heart failure Qualified Code(s): I11.9 - Hypertensive heart disease without heart failure Assessment/Plan 1. Post mechanical fall, chronically dislocated right shoulder currently with an acute, non-displaced proximal humerus fracture for conservative medical management 2. Coronary artery disease angina pectoris 3. Diastolic left ventricular dysfunction with chronic class 0-I [place] [employer] classification left ventricular failure 4. Permanent Atrial fibrillation [id number] score of 5 on chronic anticoagulation therapy with NOAC's 5. HTN 6. Hypercholesterolemia 7. Hypothyroidism 8. Chronic kidney disease 9. Severe OA/DJD 10. History of spinal stenosis PLAN: 1. Continue Apixaban (Eliquis) 2.5 mg PO BID 2. Continue Atorvastatin (Lipitor) 40 qhs 3. Continue Carvedilol (Coreg) 6.25 bid 4. Continue Ramipril (Altace) 5 qd 5. Continue Furosemide (Lasix) 20 qd 6. Pain management as per the primary team 7. Physical therapy as tolerated
--- NOTE | 2016-09-23 11:07 | PN ---
Progress Note (short form) - Note Progress Note: Ortho Pt seen and examined s/p right proximal humerus fx- chronic shoulder dislocation sling intact, + ttp, nvi a/p Sling NWB RUE ROM for elbow and wrist d/c planning d/w Dr. Stanley
[2016-09-23] MEDS: morphine CARPU-JECT 2 MG/1 ML DISP.SYRIN IVPUSH PRN (13:49)
--- NOTE | 2016-09-23 16:18 | PN ---
Progress Note, Physician Chief Complaint: in bed has some R shoulder pain, requested pain meds had difficulty urinating, to have Coyle in - Current Medication List Current Medications: Active Medications Acetaminophen (Tylenol -) 650 mg PO Q6H PRN PRN Reason: pain,fever Albuterol Sulfate (Ventolin 0.083% Nebulizer Soln -) 1 amp NEB Q4H PRN PRN Reason: sob Apixaban (Eliquis -) 2.5 mg PO BID [facility] Last Admin: 09/23/16 09:46 Dose: 2.5 mg Atorvastatin Calcium (Lipitor -) 40 mg PO HS [facility] Last Admin: 09/22/16 21:30 Dose: 40 mg Carvedilol (Coreg -) 6.25 mg PO BID [facility] Last Admin: 09/23/16 09:46 Dose: 6.25 mg Furosemide (Lasix -) 20 mg PO DAILY [facility] Last Admin: 09/23/16 09:46 Dose: 20 mg Sodium Chloride (Normal Saline -) 1,000 mls @ 42 mls/hr IV ASDIR [facility] Last Admin: 09/23/16 09:46 Dose: 42 mls/hr Levothyroxine Sodium (Synthroid -) 75 mcg PO DAILY@0700 [facility] Last Admin: 09/23/16 06:09 Dose: 75 mcg Magnesium Oxide (Mag-Ox -) 400 mg PO BID [facility] Last Admin: 09/23/16 09:46 Dose: 400 mg Morphine Sulfate (Morphine Injection -) 2 mg IVPUSH Q4H PRN PRN Reason: PAIN Last Admin: 09/23/16 13:49 Dose: 2 mg Ramipril (Altace -) 5 mg PO DAILY [facility] Last Admin: 09/23/16 09:46 Dose: 5 mg Tamsulosin HCl (Flomax -) 0.4 mg PO DAILY@0830 [facility] Last Admin: 09/23/16 09:46 Dose: 0.4 mg - Objective Vital Signs: Vital Signs Temperature 97.9 F 09/23/16 14:00 Pulse Rate 51 L 09/23/16 14:00 Respiratory Rate 17 09/23/16 14:00 Blood Pressure 140/70 09/23/16 10:00 O2 Sat by Pulse Oximetry (%) 97 09/23/16 09:00 Constitutional: Yes: No Distress, Calm Eyes: Yes: Conjunctiva Clear HENT: Yes: Atraumatic Neck: Yes: Supple Cardiovascular: Yes: Regular Rate and Rhythm Respiratory: Yes: CTA Bilaterally Gastrointestinal: Yes: Soft. No: Distention, Tenderness Genitourinary: No: CVA Tenderness - Left, CVA Tenderness - Right Musculoskeletal: No: Joint Stiffness, Joint Swelling Extremities: Yes: Other (RUE humerus with bruises in sling). No: Cold, Cool Edema: No Peripheral Pulses WNL: Yes Neurological: Yes: WNL, Alert. No: Oriented ...Motor Strength: WNL Psychiatric: Yes: WNL, Alert. No: Oriented, Agitated Labs: INR, PTT INR 1.76 (0.82-1.09) H 09/20/16 22:22 - ....Imaging Other: Report Reviewed Assessment/Plan The patient is an 85 year old female NHR with history significant for hypertension, hyperlipidemia, CAD s/p stent, breast CA, atrial fibrillation, brought in by EMS complaining of right shoulder pain status post mechanical fall. Found to have communited humeral fracture and fracture dislocation; also possible syncope admitted to inpt, stable since admission NO surgery needed per ortho cardiology f/u for ASHD Afib, syncope w/u urinary retention: check renal and pelvic US, eval; possible sec to morphine and bed immobilization; started on flomax pain meds DVT falls decubs and aspiration PFX prognosis guarded d/w pt and staff;
--- NOTE | 2016-09-23 18:21 | CON.GU ---
Consult - History of Present Illness History of Present Illness: 85 yo female admitted s/p fall and rt upper extremity fracture. Now with difficulty urinating and urinary retention. No prior history. No pelvic fracture. Has been using narcotics for pain. UA neg - Past Medical History BIOCHEMIST: Yes: Peripheral Neuropathy Cardio/Vascular: Yes: AFIB, CAD, CHF, HTN Pulmonary: Yes: Asthma, COPD. No: O2 Dependent Renal/: Yes: Cancer (Breast CA) Musculoskeletal: Yes: Chronic low back pain Rheumatology: Yes: Other (OA/DJD, spinal stenosis) Endocrine: Yes: Osteopenia - Alcohol/Substance Use Hx Alcohol Use: No History of Substance Use: reports: None - Smoking History Smoking history: Unknown if ever smoked Have you smoked in the past 12 months: No - Social History ADL: Independent ([employer]) History of Recent Travel: No Home Medications - Allergies Allergies/Adverse Reactions: Allergies Allergy/AdvReac Type Severity Reaction Status Date / Time Penicillins Allergy Unknown Verified 09/20/16 21:42 - Home Medications Home Medications: Ambulatory Orders Aspirin [ASA -] 325 mg PO DAILY 09/20/16 Aa/Hydrolyzed Collagen, Whey [Lps 15-30 Liquid] 30 ml PO DAILY 09/21/16 Acetaminophen [Tylenol] 650 mg PO Q6H PRN 09/21/16 Albuterol 0.083% Nebulizer Shamika [Ventolin 0.083%] 1 neb NEB Q4H PRN 09/21/16 Apixaban [Eliquis] 2.5 mg PO BID 09/21/16 Atorvastatin Ca [Lipitor] 40 mg PO HS 09/21/16 Carvedilol [Coreg -] 6.25 mg PO BID 09/21/16 Furosemide [Lasix -] 20 mg PO DAILY 09/21/16 Levothyroxine [Synthroid -] 75 mcg PO DAILY 09/21/16 Magnesium Oxide 400 mg PO BID 09/21/16 Ramipril [Altace] 5 mg PO DAILY 09/21/16 Family Disease History - Family Disease History Family Disease History: Other: Father (CVA 80's), Mother (RA 60's) Physical Exam- Vital Signs: Vital Signs Temperature 97.9 F 09/23/16 14:00 Pulse Rate 51 L 09/23/16 14:00 Respiratory Rate 09/23/16 14:00 Blood Pressure 140/70 09/23/16 10:00 O2 Sat by Pulse Oximetry (%) 97 09/23/16 09:00 Problem List - Problems (1) Urinary retention Assessment/Plan: agree with start flomax, will add bethenacol. trial of void tomorrow Code(s): R33.9 - RETENTION OF URINE, UNSPECIFIED
[2016-09-23] MEDS: BETHANECHOL CHLORIDE 25 MG TABLET PO SCH (21:42)
[2016-09-23] MEDS: ATORVASTATIN CA 40 MG TABLET (FP) PO SCH (21:42)
[2016-09-24] MEDS: BETHANECHOL CHLORIDE 25 MG TABLET PO SCH ×2 (06:08→14:15)
[2016-09-24] MEDS: LEVOTHYROXINE NA 75 MCG TABLET (FP) PO SCH (06:08)
[2016-09-24 08:06] LABS: BASOPHIL 0.5 % (0-2.0); EOSINOPHIL 3.7 % (0-4.5); MCH 29.5 pg (25.7-33.7); MCHC 32.7 g/dl (32.0-36.0); MEAN CELL VOLUME 90.1 fl (80-96); MEAN PLT VOLUME 7.4 fl (7.5-11.1); NEUTROPHILS 61.6 % (42.8-82.8); PLATELET COUNT 200 K/MM3 (134-434); RDW 16.6 % (11.6-15.6); WHITE BLOOD COUNT 5.2 K/mm3 (4.0-10.0)
[2016-09-24] MEDS: TAMSULOSIN HCL 0.4 MG CAP.ER.24H (FP) PO SCH (08:19)
[2016-09-24 08:24] LABS: CALCIUM 7.5 mg/dL (8.5-10.1); COCKROFT - GAULT 39.695
--- NOTE | 2016-09-24 09:06 | PN ---
Progress Note (short form) - Note Progress Note: Ortho Pt seen and examined s/p right proximal humerus fx- chronic shoulder dislocation - feeling better sling intact, + ttp, nvi a/p Sling NWB RUE ROM for elbow and wrist d/c planning d/w Dr. Stanley
--- NOTE | 2016-09-24 09:14 | PN ---
Progress Note, Physician History of Present Illness: Right shoulder discomfort, denies chest pain or dyspnea. C/o urinary retention started on Flomax and bethanechol for void trial. - Current Medication List Current Medications: Active Medications Acetaminophen (Tylenol -) 650 mg PO Q6H PRN PRN Reason: pain,fever Albuterol Sulfate (Ventolin 0.083% Nebulizer Soln -) 1 amp NEB Q4H PRN PRN Reason: sob Apixaban (Eliquis -) 2.5 mg PO BID [facility] Last Admin: 09/23/16 21:42 Dose: 2.5 mg Atorvastatin Calcium (Lipitor -) 40 mg PO HS [facility] Last Admin: 09/23/16 21:42 Dose: 40 mg Bethanechol Chloride (Urecholine -) 25 mg PO TID [facility] Last Admin: 09/24/16 06:08 Dose: 25 mg Carvedilol (Coreg -) 6.25 mg PO BID [facility] Last Admin: 09/23/16 21:42 Dose: 6.25 mg Furosemide (Lasix -) 20 mg PO DAILY [facility] Last Admin: 09/23/16 09:46 Dose: 20 mg Sodium Chloride (Normal Saline -) 1,000 mls @ 42 mls/hr IV ASDIR [facility] Last Admin: 09/23/16 09:46 Dose: 42 mls/hr Levothyroxine Sodium (Synthroid -) 75 mcg PO DAILY@0700 [facility] Last Admin: 09/24/16 06:08 Dose: 75 mcg Magnesium Oxide (Mag-Ox -) 400 mg PO BID [facility] Last Admin: 09/23/16 21:42 Dose: 400 mg Morphine Sulfate (Morphine Injection -) 2 mg IVPUSH Q4H PRN PRN Reason: PAIN Last Admin: 09/23/16 13:49 Dose: 2 mg Ramipril (Altace -) 5 mg PO DAILY [facility] Last Admin: 09/23/16 09:46 Dose: 5 mg Tamsulosin HCl (Flomax -) 0.4 mg PO DAILY@0830 [facility] Last Admin: 09/24/16 08:19 Dose: 0.4 mg - Objective Vital Signs: Vital Signs Temperature 99.2 F 09/24/16 06:00 Pulse Rate 75 09/24/16 06:00 Respiratory Rate 20 09/24/16 06:00 Blood Pressure 139/59 09/24/16 06:00 O2 Sat by Pulse Oximetry (%) 96 09/23/16 21:00 Constitutional: Yes: No Distress, Calm, Thin Neck: Yes: Supple Cardiovascular: Yes: Pulse Irregular, Murmur (2/6 SM) Respiratory: Yes: Regular, Diminished Gastrointestinal: Yes: Normal Bowel Sounds, Soft Edema: No Labs: CBC, BMP 09/24/16 07:10 09/24/16 07:10 INR, PTT INR 1.76 (0.82-1.09) H 09/20/16 22:22 Problem List - Problems (1) Shoulder fracture, right Code(s): S42.91XA - FRACTURE OF RIGHT SHOULDER GIRDLE, PART UNSP, INIT Qualifiers: Encounter type: initial encounter Fracture type: closed Qualified Code(s): S42.91XA - Fracture of right shoulder girdle, part unspecified, initial encounter for closed fracture (2) Atrial fibrillation Code(s): I48.91 - UNSPECIFIED ATRIAL FIBRILLATION Qualifiers: Atrial fibrillation type: persistent Qualified Code(s): I48.1 - Persistent atrial fibrillation (3) CHF (congestive heart failure) Code(s): I50.9 - HEART FAILURE, UNSPECIFIED Qualifiers: Congestive heart failure type: diastolic Congestive heart failure chronicity: chronic Qualified Code(s): I50.32 - Chronic diastolic ( congestive) heart failure (4) Fall Code(s): W19.XXXA - UNSPECIFIED FALL, INITIAL ENCOUNTER Qualifiers: Encounter type: subsequent encounter Qualified Code(s): W19.XXXD - Unspecified fall, subsequent encounter (5) Anemia Code(s): D64.9 - ANEMIA, UNSPECIFIED Qualifiers: Anemia type: unspecified type Qualified Code(s): D64.9 - Anemia, unspecified (6) Hyperlipidemia Code(s): E78.5 - HYPERLIPIDEMIA, UNSPECIFIED Qualifiers: Hyperlipidemia type: pure hypercholesterolemia Qualified Code(s): E78.00 - Pure hypercholesterolemia, unspecified; E78.0 - Pure hypercholesterolemia (7) Hypothyroidism Code(s): E03.9 - HYPOTHYROIDISM, UNSPECIFIED Qualifiers: Hypothyroidism type: unspecified Qualified Code(s): E03.9 - Hypothyroidism, unspecified (8) Hypertensive cardiomyopathy Code(s): I11.9 - HYPERTENSIVE HEART DISEASE WITHOUT HEART FAILURE I42.9 - CARDIOMYOPATHY, UNSPECIFIED Qualifiers: Heart failure presence: without heart failure Qualified Code(s): I11.9 - Hypertensive heart disease without heart failure (9) Urinary retention Code(s): R33.9 - RETENTION OF URINE, UNSPECIFIED Assessment/Plan 1. Post mechanical fall, chronically dislocated right shoulder currently with an acute, non-displaced proximal humerus fracture for conservative medical management 2. Coronary artery disease angina pectoris 3. Diastolic left ventricular dysfunction with chronic class 0-I [place] [employer] classification left ventricular failure 4. Permanent Atrial fibrillation [id number] score of 5 on chronic anticoagulation therapy with NOAC's 5. HTN 6. Hypercholesterolemia 7. Hypothyroidism 8. Chronic kidney disease 9. Severe OA/DJD 10. History of spinal stenosis 11. Urinary retention 12. Anemia PLAN: 1. Continue Apixaban (Eliquis) 2.5 mg PO BID 2. Continue Atorvastatin (Lipitor) 40 qhs 3. Continue Carvedilol (Coreg) 6.25 bid 4. Continue Ramipril (Altace) 5 qd 5. Continue Furosemide (Lasix) 20 qd 6. Pain management as per the primary team, started on Flomax and bethenacol. Plan for void trial 7. Physical therapy as tolerated
[2016-09-24] MEDS ORDERED: PT OWN MED DRAWER 7, Y5N ONE (09:48)
[2016-09-24] MEDS: morphine CARPU-JECT 2 MG/1 ML DISP.SYRIN IVPUSH PRN (09:57)
[2016-09-24] MEDS: FUROSEMIDE 20 MG TABLET (FP) PO SCH (09:59)
[2016-09-24] MEDS: CARVEDILOL 6.25 MG TABLET (FP) PO SCH (09:59)
[2016-09-24] MEDS: RAMIPRIL 5 MG CAPSULE (FP) PO SCH (09:59)
[2016-09-24] MEDS: MAGNESIUM OXIDE 400 MG TABLET (FP) PO SCH (09:59)
[2016-09-24] MEDS: APIXABAN 2.5 MG TABLET PO SCH (09:59)
[2016-09-24] MEDS ORDERED: OXYCODONE/APAP 5/325MG COMBO TABLET PO PRN (10:30)
--- NOTE | 2016-09-24 10:43 | DS ---
Physical Examination Vital Signs: Vital Signs Temperature 99.2 F 09/24/16 06:00 Pulse Rate 75 09/24/16 06:00 Respiratory Rate 20 09/24/16 06:00 Blood Pressure 139/59 09/24/16 06:00 O2 Sat by Pulse Oximetry (%) 96 09/23/16 21:00 Findings/Remarks: OOB to chair has on/off R shoulder pain, on pain meds; no surgery per ortho Coyle out; seen by ; on Flomax Hg 8.0 could be sec to bleed at the fracture site and IVF/dilution, will f/u CBC closely, no obvious signs of bleeding anywhere else. d/w staff if CBC stable and pt able to urinate will send her back to [place] today Constitutional: Yes: No Distress, Calm Eyes: Yes: Conjunctiva Clear HENT: Yes: Atraumatic Neck: Yes: Supple Cardiovascular: No: Regular Rate and Rhythm Respiratory: Yes: CTA Bilaterally Gastrointestinal: Yes: Soft. No: Distention, Tenderness Renal/: No: CVA Tenderness - Left, CVA Tenderness - Right Musculoskeletal: Yes: Other (RUE in sling; bruises around R shouder). No: Joint Stiffness, Joint Swelling Extremities: No: Cold, Cool Edema: No Peripheral Pulses WNL: Yes Integumentary: Yes: Bruising (RUE). No: Rash, Venous Stasis Changes Neurological: Yes: WNL, Alert. No: Oriented ...Motor Strength: WNL Psychiatric: Yes: WNL, Alert, Oriented. No: Agitated Labs: CBC, BMP 09/24/16 07:10 09/24/16 07:10 Discharge Summary Reason For Visit: FRACTURE OF RIGHT SHOULDER Current Active Problems Hyperlipidemia (Acute) Hypertensive cardiomyopathy (Acute) Hypothyroidism (Acute) Shoulder fracture, right (Acute) Urinary retention (Acute) Procedures: Principal: s/p fall RUE fracture Other Procedures: conservative managemnt per ortho; seen by cardiology;. pain meds;. deveoped urinary retention seen by DONY; Hospital Course: dropped H&H sec to dilution and bleeding at the fracture site; transfer to [place] if stable; close f/u in [place]; falls PFX; see DC instructions. - Instructions Diet, Activity, Other Instructions: f/u PCP and ortho dr Sharif in [place] check CBC CMP q 1 week mondays watch for urinary retention, call MD if unable to urinate falls PFX Referrals: Elicia Thompson [Primary Care Provider] - Disposition: [facility] - Home Medications Comprehensive Discharge Medication List: Ambulatory Orders Aa/Hydrolyzed Collagen, Whey [Lps 15-30 Liquid] 30 ml PO DAILY 09/21/16 Acetaminophen [Tylenol] 650 mg PO Q6H PRN 09/21/16 Albuterol 0.083% Nebulizer Shamika [Ventolin 0.083% Nebulizer Soln -] 1 neb NEB Q4H PRN 09/21/16 Apixaban [Eliquis] 2.5 mg PO BID 09/21/16 Atorvastatin Ca [Lipitor] 40 mg PO HS 09/21/16 Carvedilol [Coreg -] 6.25 mg PO BID 09/21/16 Furosemide [Lasix -] 20 mg PO DAILY 09/21/16 Levothyroxine [Synthroid -] 75 mcg PO DAILY 09/21/16 Magnesium Oxide 400 mg PO BID 09/21/16 Ramipril [Altace] 5 mg PO DAILY 09/21/16 Bethanechol Chloride [Bethanechol Chloride -] 25 mg PO TID tablet 09/24/16 Tamsulosin HCl [Flomax -] 0.4 mg PO DAILY@0830 cap 09/24/16
[2016-09-24] MEDS ORDERED: oxyCODONE HCL 5 MG TABLET PO ONE ×2 (10:45→14:15)
[2016-09-24] MEDS ORDERED: ACETAMINOPHEN 325 MG TABLET (FP) PO ONE (10:45)
[2016-09-24 11:35] VITALS: BP 131/64
[2016-09-24 12:07] LABS: BASOPHIL 0.4 % (0-2.0); EOSINOPHIL 1.9 % (0-4.5); MCH 30.2 pg (25.7-33.7); MCHC 33.6 g/dl (32.0-36.0); MEAN CELL VOLUME 90.1 fl (80-96); MEAN PLT VOLUME 7.3 fl (7.5-11.1); NEUTROPHILS 76.2 % (42.8-82.8); PLATELET COUNT 202 K/MM3 (134-434); RDW 16.9 % (11.6-15.6)
[2016-09-24 13:30] VITALS: PULSE 88; TEMP 98
== END 2016-09-24 16:36 | DRG 563 ==
LOC: JER 21:35 → JERBED 09-21 00:37 → J6S 09-21 15:31
PROVIDERS: ADMIT Internal Medicine; ATTEND Internal Medicine
DX: S42.294A Other nondisplaced fracture of upper end of right humerus, initial encounter for closed fracture (principal); N17.9 Acute kidney failure, unspecified; D47.1 Chronic myeloproliferative disease; I13.0 Hypertensive heart and chronic kidney disease with heart failure and stage 1 through stage 4 chronic kidney disease, or unspecified chronic kidney disease; I50.30 Unspecified diastolic (congestive) heart failure; M24.411 Recurrent dislocation, right shoulder; I25.10 Atherosclerotic heart disease of native coronary artery without angina pectoris; E78.5 Hyperlipidemia, unspecified; I48.91 Unspecified atrial fibrillation; I25.2 Old myocardial infarction; J44.9 Chronic obstructive pulmonary disease, unspecified; G62.9 Polyneuropathy, unspecified; J45.909 Unspecified asthma, uncomplicated; M54.5 Low back pain; M48.00 Spinal stenosis, site unspecified; M85.80 Other specified disorders of bone density and structure, unspecified site; E03.9 Hypothyroidism, unspecified; R33.9 Retention of urine, unspecified; D64.9 Anemia, unspecified; N18.9 Chronic kidney disease, unspecified; Z95.5 Presence of coronary angioplasty implant and graft; Z85.3 Personal history of malignant neoplasm of breast; W18.39XA Other fall on same level, initial encounter; Y93.89 Activity, other specified; Y92.098 Other place in other non-institutional residence as the place of occurrence of the external cause
CPT/HCPCS: 36415; 70450-TC; 71010-TC; 73030-TC-RT; 73070-TC-RT; 76775-TC; 76856-TC; 80048; 80053; 81003; 85025; 85610; 85730; 86850; 86900; 86901; 87086; 90715; 93005; 93010; 99285-25

== ENCOUNTER 2016-12-09 23:30 | Inpatient (IN) | payer OTHER ==
--- NOTE | 2016-12-10 00:10 | PDOC ---
History of Present Illness <Kayleigh Pérez - Last Filed: 12/10/16 00:10> - History of Present Illness Initial Comments: 12/10/16 01:47 Patient is an 86 year old female with significant medical hx of peripheral neuropathy, AFib, CAD s/p stent, AFib, CHF, HTN, HLD, asthma, COPD, myeloproliferative syndrome, osteopenia, chronic lower back pain, osteoarthritis , and spinal stenosis who has been sent to the ED from [facility] for fever, shortness of breath, and respiratory distress. Patient is a poor historian and history was obtained from snf papers. Patient was found to be febrile in [place] with a temp of 101.8. Her BP was 164/50 and O2Sat at 96%. Patient is complaining of coughing, sneezing and rhinorrhea. Patient is on 3L of O2 at baseline. Patient was sent over for secondary complaint of UTI. She was started on her first dose of macrobid 100mg at 12/09/16 at 9AM. Allergies: penicillins <Zuly Conte - Last Filed: 12/10/16 01:46> <Junior Larios - Last Filed: 12/10/16 03:48> - General Chief Complaint: SIRS, Suspected/Possible Stated Complaint: DIFFICULTY BREATHING Time Seen by Provider: 12/09/16 23:42 Past History - Past Medical History Cancer: Yes (- Right breast ductal carcinoma in situ) Cardiac Disorders: Yes (Atrial Fibrilation, PA) COPD: Yes CHF: Yes Disorders: Yes (Recurrent UTI/ CKD) HTN: Yes Hypercholesterolemia: Yes Suicide Attempt (Hx): No Thyroid Disease: Yes (HYPO) - Surgical History Cardiac Surgery: (stents, MVR) Orthopedic Surgery: (Reduction of dislocated right shoulder - 3 weeks ago/ Unsuccessful) - Immunization History Immunization Up to Date: Yes - Psycho/Social/Smoking Cessation Hx Anxiety: Yes Suicidal Ideation: No Smoking History: Never smoked Have you smoked in the past 12 months: No Information on smoking cessation initiated: No Hx Alcohol Use: No Drug/Substance Use Hx: No Substance Use Type: None Hx Substance Use Treatment: No <Kayleigh Pérez - Last Filed: 12/10/16 00:10> <Zuly Conte - Last Filed: 12/10/16 01:46> <Junior Larios - Last Filed: 12/10/16 03:48> - Past Medical History Allergies/Adverse Reactions: Allergies Allergy/AdvReac Type Severity Reaction Status Date / Time Penicillins Allergy Unknown Verified 12/09/16 23:46 Home Medications: Ambulatory Orders Aa/Hydrolyzed Collagen, Whey [Lps 15-30 Liquid] 30 ml PO DAILY 09/21/16 Acetaminophen [Tylenol] 650 mg PO Q6H PRN 09/21/16 Albuterol 0.083% Nebulizer Shamika [Ventolin 0.083% Nebulizer Soln -] 1 neb NEB Q4H PRN 09/21/16 Apixaban [Eliquis] 2.5 mg PO BID 09/21/16 Atorvastatin Ca [Lipitor] 40 mg PO HS 09/21/16 Carvedilol [Coreg -] 6.25 mg PO BID 09/21/16 Furosemide [Lasix -] 20 mg PO DAILY 09/21/16 Levothyroxine [Synthroid -] 75 mcg PO DAILY 09/21/16 Magnesium Oxide 400 mg PO BID 09/21/16 Ramipril [Altace] 5 mg PO DAILY 09/21/16 Bethanechol Chloride [Bethanechol Chloride -] 25 mg PO TID tablet 09/24/16 Oxycodone HCl/Acetaminophen [Percocet 5-325 mg Tablet] 1 combo PO ONCE PRN #0 tablet MDD 4 09/24/16 Ferrous Sulfate [Feosol] 325 mg PO DAILY 12/09/16 Review of Systems - Review of Systems Comments:: 12/10/16 01:50 CONSTITUTIONAL: Present: fever, chills Absent: diaphoresis, generalized weakness, malaise, loss of appetite HEENT: Present: rhinorrhea, sneezing Absent: nasal congestion, throat pain, throat swelling, difficulty swallowing, mouth swelling, ear pain, eye pain, visual changes CARDIOVASCULAR: Absent: chest pain, syncope, palpitations, irregular heart rate, lightheadedness , peripheral edema RESPIRATORY: Present: cough, shortness of breath Absent: dyspnea with exertion, orthopnea, wheezing, stridor, hemoptysis GASTROINTESTINAL: Absent: abdominal pain, abdominal distension, nausea, vomiting, diarrhea, constipation, melena, hematochezia GENITOURINARY: Absent: dysuria, frequency, urgency, hesitancy, hematuria, flank pain, genital pain MUSCULOSKELETAL: Absent: myalgia, arthralgia, joint swelling SKIN: Absent: rash, itching, pallor HEMATOLOGIC/IMMUNOLOGIC: Absent: easy bleeding, easy bruising, lymphadenopathy, frequent infections ENDOCRINE: Absent: unexplained weight gain, unexplained weight loss, heat intolerance, cold intolerance NEUROLOGIC: Absent: headache, focal weakness or paresthesia, dizziness, unsteady gait, seizure, mental status changes, bladder or bowel incontinence. PSYCHIATRIC: Absent: anxiety, depression, suicidal or homicidal ideation, hallucinations <Zuly Conte - Last Filed: 12/10/16 01:46> *Physical Exam - Vital Signs Last Vital Signs Temp Pulse Resp BP Pulse Ox 99.9 F H 75 19 121/72 98 12/09/16 23:40 12/09/16 23:40 12/09/16 23:40 12/09/16 23:40 12/09/16 23:40 <BetoKayleigh Aurelia - Last Filed: 12/10/16 00:10> - Vital Signs Last Vital Signs Temp Pulse Resp BP Pulse Ox 99.9 F H 75 19 121/72 98 12/09/16 23:40 12/09/16 23:40 12/09/16 23:40 12/09/16 23:40 12/09/16 23:40 - Physical Exam Comments: 12/10/16 01:51 GENERAL: Well developed, well nourished. Awake and alert. No acute distress. Warm to touch. HEENT: Normocephalic, atraumatic. PERRLA, EOMI. No conjunctival pallor. Sclera are non- icteric. Moist mucous membranes. Oropharynx is clear. NECK: Supple. Full ROM. No JVD. Carotid pulses 2+ and symmetric, without bruits. No thyromegaly. No lymphadenopathy. CARDIOVASCULAR: Regular rate and rhythm. No murmurs, rubs, or gallops. Distal pulses are 2+ and symmetric. PULMONARY: Crackles on the left. Mild respiratory distress. No wheezing, rales or rhonchi. ABDOMINAL: Soft. Non-tender. Non-distended. No rebound or guarding. No organomegaly. Normoactive bowel sounds. MUSCULOSKELETAL: Normal range of motion at all joints. No bony deformities or tenderness. No CVA tenderness. EXTREMITIES: No cyanosis. No clubbing. No edema. No calf tenderness. SKIN: Warm and dry. Normal capillary refill. No rashes. No jaundice. NEUROLOGICAL: Alert, awake, appropriate. Cranial nerves 2-12 intact. Normal speech. PSYCHIATRIC: Cooperative. Good eye contact. Appropriate mood and affect. <Zuly Conte - Last Filed: 12/10/16 01:46> - Vital Signs Last Vital Signs Temp Pulse Resp BP Pulse Ox 100.1 F H 75 19 121/72 98 12/10/16 02:44 12/09/16 23:40 12/09/16 23:40 12/09/16 23:40 12/09/16 23:40 <Junior Larios - Last Filed: 12/10/16 03:48> Heart Score/ECG Review #1 12/10/16 01:47 Atrial fibrillation at 63 bpm Septal infarct, age undetermined Abnormal ECG <Zuly Conte - Last Filed: 12/10/16 01:46> ED Treatment Course - LABORATORY CBC & Chemistry Diagram: 12/10/16 00:28 12/10/16 01:01 - ADDITIONAL ORDERS Additional order review: Laboratory Results 12/10/16 12/10/16 12/10/16 01:01 01:01 00:28 INR 3.44 H D PTT (Actin FS) Sodium 138 Potassium 4.6 Chloride 103 Carbon Dioxide 28 Anion Gap 7 L BUN 53 H D Creatinine 1.3 H D Creat Clearance w eGFR 38.75 Random Glucose 144 H D Lactic Acid Calcium 8.0 L Total Bilirubin 0.5 D AST 33 D ALT 30 Alkaline Phosphatase 70 Creatine Kinase Troponin I Total Protein 5.6 L Albumin 2.6 L D Blood Type AB POSITIVE Antibody Screen Negative 12/10/16 12/10/16 12/10/16 00:28 00:28 00:28 INR Cancelled PTT (Actin FS) Cancelled Sodium Cancelled Potassium Cancelled Chloride Cancelled Carbon Dioxide Cancelled Anion Gap Cancelled BUN Cancelled Creatinine Cancelled Creat Clearance w eGFR Cancelled Random Glucose Cancelled Lactic Acid 0.9 Calcium Cancelled Total Bilirubin Cancelled AST Cancelled ALT Cancelled Alkaline Phosphatase Cancelled Creatine Kinase Cancelled Troponin I Cancelled Total Protein Cancelled Albumin Cancelled Blood Type Antibody Screen 12/10/16 00:28 RBC 3.05 L MCV 91.0 MCHC 32.7 RDW 18.2 H MPV 8.0 Neutrophils % Y Lymphocytes % Y - Medications Given in the ED: ED Medications Discontinued Medications Generic Name Dose Route Start Last Admin Trade Name Roderick PRN Reason Stop Dose Admin Sodium Chloride 1,000 mls @ 1,000 mls/hr 12/10/16 00:11 12/10/16 00:41 Normal Saline - IV 12/10/16 01:10 1,000 mls/hr ASDIR STA Administration <Zuly Conte - Last Filed: 12/10/16 01:46> - LABORATORY CBC & Chemistry Diagram: 12/10/16 00:28 12/10/16 01:01 - ADDITIONAL ORDERS Additional order review: Laboratory Results 12/10/16 12/10/16 12/10/16 02:40 01:01 01:01 INR 3.44 H D PTT (Actin FS) Sodium 138 Potassium 4.6 Chloride 103 Carbon Dioxide 28 Anion Gap 7 L BUN 53 H D Creatinine 1.3 H D Creat Clearance w eGFR 38.75 Random Glucose 144 H D Lactic Acid Calcium 8.0 L Total Bilirubin 0.5 D AST 33 D ALT 30 Alkaline Phosphatase 70 Creatine Kinase Troponin I Total Protein 5.6 L Albumin 2.6 L D Urine Color Yellow Urine Appearance Clear Urine pH 5.0 Urine Protein 1+ H Urine Glucose (UA) Negative Urine Ketones Negative Urine Blood Negative Urine Nitrite Negative Urine Bilirubin Negative Urine Urobilinogen Negative Ur Leukocyte Esterase 1+ H Urine RBC 7 Urine WBC 30 Ur Epithelial Cells Rare Blood Type Antibody Screen 12/10/16 12/10/16 12/10/16 00:28 00:28 00:28 INR PTT (Actin FS) Sodium Cancelled Potassium Cancelled Chloride Cancelled Carbon Dioxide Cancelled Anion Gap Cancelled BUN Cancelled Creatinine Cancelled Creat Clearance w eGFR Cancelled Random Glucose Cancelled Lactic Acid 0.9 Calcium Cancelled Total Bilirubin Cancelled AST Cancelled ALT Cancelled Alkaline Phosphatase Cancelled Creatine Kinase Cancelled Troponin I Cancelled Total Protein Cancelled Albumin Cancelled Urine Color Urine Appearance Urine pH Urine Protein Urine Glucose (UA) Urine Ketones Urine Blood Urine Nitrite Urine Bilirubin Urine Urobilinogen Ur Leukocyte Esterase Urine RBC Urine WBC Ur Epithelial Cells Blood Type AB POSITIVE Antibody Screen Negative 12/10/16 00:28 INR Cancelled PTT (Actin FS) Cancelled Sodium Potassium Chloride Carbon Dioxide Anion Gap BUN Creatinine Creat Clearance w eGFR Random Glucose Lactic Acid Calcium Total Bilirubin AST ALT Alkaline Phosphatase Creatine Kinase Troponin I Total Protein Albumin Urine Color Urine Appearance Urine pH Urine Protein Urine Glucose (UA) Urine Ketones Urine Blood Urine Nitrite Urine Bilirubin Urine Urobilinogen Ur Leukocyte Esterase Urine RBC Urine WBC Ur Epithelial Cells Blood Type Antibody Screen 12/10/16 00:28 RBC 3.05 L MCV 91.0 MCHC 32.7 RDW 18.2 H MPV 8.0 Neutrophils % 60.0 D Lymphocytes % 15.0 Monocytes % 4.0 - Medications Given in the ED: ED Medications Discontinued Medications Generic Name Dose Route Start Last Admin Trade Name Lesq PRN Reason Stop Dose Admin Albuterol/Ipratropium 1 amp 12/10/16 02:04 12/10/16 02:15 Duoneb - NEB 12/10/16 02:05 1 amp ONCE ONE Administration Sodium Chloride 1,000 mls @ 1,000 mls/hr 12/10/16 00:11 12/10/16 00:41 Normal Saline - IV 12/10/16 01:10 1,000 mls/hr ASDIR STA Administration Levofloxacin 100 mls @ 100 mls/hr 12/10/16 01:51 12/10/16 02:15 Levaquin 500 Mg Premixed Ivpb - IVPB 12/10/16 02:50 100 mls/hr ONCE ONE Administration <Junior Larios - Last Filed: 12/10/16 03:48> Medical Decision Making - Medical Decision Making 12/10/16 03:31 case signed out to me from dr. pérez awaiting UA and admission 12/10/16 03:[address] thompson agreed with admission for further management of uti stable for admission for further management Case discussed in detail with admitting physician including history, physical exam and ancillary studies. Admitting physician has assumed care for the patient, will follow all pending diagnostics and will complete the evaluation and treatment. <Junior Larios - Last Filed: 12/10/16 03:48> *DC/Admit/Observation/Transfer <Kayleigh Pérez - Last Filed: 12/10/16 00:10> - Attestations Scribe Attestion: 12/10/16 01:54 Documentation prepared by Zuly Conte, acting as medical illustrator for Kayleigh Pérez MD. <Zuly Conte - Last Filed: 12/10/16 01:46> - Discharge Dispostion Admit: Yes <Junior Larios - Last Filed: 12/10/16 03:48> Diagnosis at time of Disposition: Dehydration Sepsis Qualifiers: Sepsis type: sepsis due to unspecified organism Qualified Code(s): A41.9 - Sepsis, unspecified organism UTI (urinary tract infection) Qualifiers: Urinary tract infection type: site unspecified Hematuria presence: with hematuria Qualified Code(s): N39.0 - Urinary tract infection, site not specified - Discharge Dispostion Condition at time of disposition: Guarded - Referrals Referrals: Ranjit Thompson MD [Primary Care Provider] -
[2016-12-10] MEDS ORDERED: SODIUM CHLORIDE 1,000 ML IV STA (00:11)
[2016-12-10 00:40] LABS: MCH 29.8 pg (25.7-33.7); MCHC 32.7 g/dl (32.0-36.0); PLATELET COUNT 235 K/MM3 (134-434); RDW 18.2 % (11.6-15.6); WHITE BLOOD COUNT 11.3 K/mm3 (4.0-10.0)
[2016-12-10 01:22] LABS: INR 3.44 (0.82-1.09); PROTHROMBIN TIME (PATIENT) 38.8 SEC (9.98-11.88)
[2016-12-10 01:30] LABS: ALBUMIN 2.6 g/dl (3.4-5.0); ANION GAP 7 (8-16); BILIRUBIN,TOTAL 0.5 mg/dL (0.2-1.0); CO2 28 mmol/L (21-32); CREATININE 1.3 mg/dL (0.55-1.02); GLUCOSE,RANDOM 144 mg/dL (74-106); SGOT/AST 33 U/L (15-37); SGPT/ALT 30 U/L (12-78); TOT PROT 5.6 g/dl (6.4-8.2)
[2016-12-10 01:31] LABS: ALK PHOS 70 U/L (45-117)
[2016-12-10] MEDS ORDERED: LEVOFLOXACIN 500 MG IVPB 100 ML IVPB ONE ×2 (01:51→02:09)
[2016-12-10] MEDS ORDERED: ALBUTEROL SO4 2.5/IPRATROPIUM 0.5 INH SOL 3 ML VIAL.NEB. NEB ONE ×2 (02:04→02:09)
[2016-12-10 02:21] LABS: ANISOCYTOSIS 1+; MICROCYTOSIS 1+; PLATELET ESTIMATE ADEQUATE (NORMAL); POIKILOCYTOSIS 1+
[2016-12-10 02:48] LABS: URINE APPEARANCE CLEAR; URINE BILIRUBIN NEGATIVE (NEGATIVE); URINE BLOOD NEGATIVE (NEGATIVE); URINE COLOR YELLOW; URINE GLUCOSE (UA) NEGATIVE (NEGATIVE); URINE KETONE NEGATIVE (NEGATIVE); URINE NITRITE NEGATIVE (NEGATIVE); URINE UROBILINOGEN NEGATIVE E.U./dl (0.2-1.0)
[2016-12-10 02:49] LABS: URINE LEUK ESTERASE 1+ (NEGATIVE); URINE PROTEIN 1+ (NEGATIVE)
[2016-12-10 02:51] LABS: URINE RBC 7 /hpf (0-3); URINE WBC 30 /hpf (3-5)
[2016-12-10] MEDS ORDERED: ACETAMINOPHEN 325 MG TABLET (FP) PO ONE (03:44)
[2016-12-10] MEDS ORDERED: ACETAMINOPHEN 325 MG TABLET (FP) ONE (03:55)
[2016-12-10 05:40] VITALS: BMI 19.3
[2016-12-10] MEDS ORDERED: ACETAMINOPHEN 325 MG TABLET (FP) PO PRN ×3 (07:00→10:24)
[2016-12-10] MEDS ORDERED: ALBUTEROL SO4 0.083% IH SOL 2.5 MG/3 ML VIAL.NEB. NEB PRN (09:56)
[2016-12-10] MEDS ORDERED: OXYCODONE/APAP 5/325MG COMBO TABLET PO PRN (09:56)
[2016-12-10] MEDS ORDERED: PT OWN MED DRAWER 7, Y5N ONE ×3 (10:12→21:18)
[2016-12-10] MEDS ORDERED: oxyCODONE HCL 5 MG TABLET PO PRN (10:23)
[2016-12-10] MEDS: RAMIPRIL 5 MG CAPSULE (FP) PO SCH (10:25)
[2016-12-10] MEDS: CARVEDILOL 6.25 MG TABLET (FP) PO SCH ×2 (10:25→21:32)
[2016-12-10] MEDS: LEVOTHYROXINE NA 75 MCG TABLET (FP) PO SCH (10:26)
[2016-12-10] MEDS: LEVOFLOXACIN 250 MG IVPB 50 ML IVPB SCH (10:26)
[2016-12-10] MEDS: MAGNESIUM OXIDE 400 MG TABLET (FP) PO SCH ×2 (10:26→21:32)
[2016-12-10] MEDS: FUROSEMIDE 20 MG TABLET (FP) PO SCH (10:26)
[2016-12-10] MEDS: FERROUS SO4 325 MG TABLET (FP) PO SCH (10:29)
[2016-12-10] MEDS: INSULIN SLIDING SCALE (NOVOLOG) 1 VIAL SQ SCH ×3 (11:36→21:39)
[2016-12-10] MEDS: APIXABAN 2.5 MG TABLET PO SCH ×2 (11:37→21:32)
--- NOTE | 2016-12-10 12:22 | HP ---
Admitting History and Physical - Primary Care Physician PCP: Ranjit Thompson - Admission Chief Complaint: SOB. 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 No: O2 Dependent Renal/: Yes: Cancer (Breast CA) Heme/Onc: Yes: Cancer (Breast CA), Myeloproliferative Synd Musculoskeletal: Yes: Chronic low back pain Rheumatology: Yes: Other (OA/DJD, spinal stenosis) Endocrine: Yes: Osteopenia - Smoking History Smoking history: Never smoked Have you smoked in the past 12 months: No - Alcohol/Substance Use Hx Alcohol Use: No History of Substance Use: reports: None - Social History ADL: Independent ([employer]) History of Recent Travel: No Home Medications - Allergies Allergies/Adverse Reactions: Allergies Allergy/AdvReac Type Severity Reaction Status Date / Time Penicillins Allergy Unknown Verified 12/09/16 23:46 - Home Medications Home Medications: Ambulatory Orders Aa/Hydrolyzed Collagen, Whey [Lps 15-30 Liquid] 30 ml PO DAILY 09/21/16 Acetaminophen [Tylenol] 650 mg PO Q6H PRN 09/21/16 Albuterol 0.083% Nebulizer Shamika [Ventolin 0.083% Nebulizer Soln -] 1 neb NEB Q4H PRN 09/21/16 Apixaban [Eliquis] 2.5 mg PO BID 09/21/16 Atorvastatin Ca [Lipitor] 40 mg PO HS 09/21/16 Carvedilol [Coreg -] 6.25 mg PO BID 09/21/16 Furosemide [Lasix -] 20 mg PO DAILY 09/21/16 Levothyroxine [Synthroid -] 75 mcg PO DAILY 09/21/16 Magnesium Oxide 400 mg PO BID 09/21/16 Ramipril [Altace] 5 mg PO DAILY 09/21/16 Bethanechol Chloride [Bethanechol Chloride -] 25 mg PO TID tablet 09/24/16 Oxycodone HCl/Acetaminophen [Percocet 5-325 mg Tablet] 1 combo PO ONCE PRN #0 tablet MDD 4 09/24/16 Ferrous Sulfate [Feosol] 325 mg PO DAILY 12/09/16 Family Disease History - Family Disease History Family Disease History: Other: Father (CVA 80's), Mother (RA 60's) Review of Systems - Review of Systems Constitutional: denies: Chills, Fever Eyes: denies: Blurred Vision, Photophobia HENT: denies: Ear Discharge, Ear Pain, Throat Pain Neck: denies: Stiffness, Tenderness Cardiovascular: denies: Chest Pain, Edema, Palpitations Respiratory: reports: Cough, SOB. denies: Hemoptysis Gastrointestinal: denies: Abdominal Pain, Diarrhea, Vomiting Genitourinary: denies: Burning, Discharge, Frequency Musculoskeletal: denies: Back Pain, Extremity Pain, Joint Pain Integumentary: denies: Blister, Bruising, Eczema Neurological: denies: Change in Speech, Headache Endocrine: denies: Excessive Sweating, Increased Thirst Hematology/Lymphatic: denies: Easily Bruised, Excessive Bleeding Psychiatric: denies: Altered Sleep Pattern, Depression Physical Examination Vital Signs: Vital Signs Temperature 98.8 F 12/10/16 08:15 Pulse Rate 79 12/10/16 08:15 Respiratory Rate 18 12/10/16 08:15 Blood Pressure 123/52 12/10/16 08:15 O2 Sat by Pulse Oximetry (%) 98 12/10/16 09:00 Constitutional: Yes: No Distress Eyes: Yes: Conjunctiva Clear. No: EOM Intact HENT: Yes: Normocephalic. No: Epistaxis, Nasal Congestion, Pharyngeal Erythema Neck: Yes: Supple. No: Lymphadenopathy Cardiovascular: Yes: Regular Rate and Rhythm, S1, S2 Respiratory: Yes: Regular, Rhonchi (at bases, R > L) Gastrointestinal: Yes: Normal Bowel Sounds, Soft. No: Tenderness ...Rectal Exam: Yes: Deferred Renal/: No: Bladder Distention, CVA Tenderness - Left, CVA Tenderness - Right Breast(s): Yes: Other (deferred) Musculoskeletal: No: Back Pain, Joint Swelling Edema: No Neurological: Yes: Alert, Oriented (to place), Other (motor and sensory grossly intact in UE/ LE/ face) Labs: reviewed Imaging - Results Chest X-ray: Report Reviewed, Image Reviewed Problem List - Problems (1) UTI (urinary tract infection) Code(s): N39.0 - URINARY TRACT INFECTION, SITE NOT SPECIFIED Qualifiers: Urinary tract infection type: site unspecified Hematuria presence: with hematuria Qualified Code(s): N39.0 - Urinary tract infection, site not specified (2) Bandemia Code(s): D72.825 - BANDEMIA (3) CAD (coronary artery disease) Code(s): I25.10 - ATHSCL HEART DISEASE OF [place] CORONARY ARTERY W/O ANG PCTRS Qualifiers: Coronary Disease-Associated Artery/Lesion type: [place] artery [place] vs. transplanted heart: [place] heart Associated angina: without angina Qualified Code(s): I25.10 - Atherosclerotic heart disease of [place] coronary artery without angina pectoris (4) CHF (congestive heart failure) Code(s): I50.9 - HEART FAILURE, UNSPECIFIED Qualifiers: Congestive heart failure type: diastolic Congestive heart failure chronicity: chronic Qualified Code(s): I50.32 - Chronic diastolic ( congestive) heart failure (5) Anemia Code(s): D64.9 - ANEMIA, UNSPECIFIED Qualifiers: Anemia type: unspecified type Qualified Code(s): D64.9 - Anemia, unspecified (6) MDS (myelodysplastic syndrome) Code(s): D46.9 - MYELODYSPLASTIC SYNDROME, UNSPECIFIED Assessment/Plan Send BCX, UCX IV abtx. Cardio Consult Heme Consult AM labs
--- NOTE | 2016-12-10 12:50 | CON.CARD ---
Consult Consult Specialty:: Cardiology Referred by:: Ranjit Thompson MD Reason for Consultation:: Afib - History of Present Illness Chief Complaint: Fevers, dyspnea History of Present Illness: Patient is an 86 year old female with significant medical hx of peripheral neuropathy, AFib, CAD s/p stent, CHF, HTN, HLD, asthma, COPD, myeloproliferative syndrome, osteopenia, chronic lower back pain, osteoarthritis , and spinal stenosis who was referred from [facility] for fever, shortness of breath, and respiratory distress. Patient is a poor historian and history was obtained from [facility] papers. Patient was found to be febrile in [place] with a temp of 101.8. Her BP was 164/50 and O2Sat at 96%. Patient complained of coughing, sneezing and rhinorrhea. Patient is on 3L of O2 at baseline, also has secondary complaint of UTI. She was started on her first dose of macrobid 100mg at 12/09/16 at 9AM. 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 No: O2 Dependent Renal/: Yes: Cancer (Breast CA) Musculoskeletal: Yes: Chronic low back pain Rheumatology: Yes: Other (OA/DJD, spinal stenosis) Endocrine: Yes: Osteopenia - Alcohol/Substance Use Hx Alcohol Use: No History of Substance Use: reports: None - Smoking History Smoking history: Never smoked Have you smoked in the past 12 months: No - Social History ADL: Independent ([facility]) History of Recent Travel: No Home Medications - Allergies Allergies/Adverse Reactions: Allergies Allergy/AdvReac Type Severity Reaction Status Date / Time Penicillins Allergy Unknown Verified 12/09/16 23:46 - Home Medications Home Medications: Ambulatory Orders Aa/Hydrolyzed Collagen, Whey [Lps 15-30 Liquid] 30 ml PO DAILY 09/21/16 Acetaminophen [Tylenol] 650 mg PO Q6H PRN 09/21/16 Albuterol 0.083% Nebulizer Shamika [Ventolin 0.083% Nebulizer Soln -] 1 neb NEB Q4H PRN 09/21/16 Apixaban [Eliquis] 2.5 mg PO BID 09/21/16 Atorvastatin Ca [Lipitor] 40 mg PO HS 09/21/16 Carvedilol [Coreg -] 6.25 mg PO BID 09/21/16 Furosemide [Lasix -] 20 mg PO DAILY 09/21/16 Levothyroxine [Synthroid -] 75 mcg PO DAILY 09/21/16 Magnesium Oxide 400 mg PO BID 09/21/16 Ramipril [Altace] 5 mg PO DAILY 09/21/16 Bethanechol Chloride [Bethanechol Chloride -] 25 mg PO TID tablet 09/24/16 Oxycodone HCl/Acetaminophen [Percocet 5-325 mg Tablet] 1 combo PO ONCE PRN #0 tablet MDD 4 09/24/16 Ferrous Sulfate [Feosol] 325 mg PO DAILY 12/09/16 Family Disease History - Family Disease History Family Disease History: Other: Father (CVA 80's), Mother (RA 60's) Review of Systems Unable to obtain ROS, reason: Dementia Vital Signs: Vital Signs Temperature 98.8 F 12/10/16 08:15 Pulse Rate 79 12/10/16 08:15 Respiratory Rate 18 12/10/16 08:15 Blood Pressure 123/52 12/10/16 08:15 O2 Sat by Pulse Oximetry (%) 98 12/10/16 09:00 Constitutional: Yes: No Distress, Calm Neck: Yes: Supple Respiratory: Yes: Regular, Diminished, On Nasal O2 Gastrointestinal: Yes: Normal Bowel Sounds, Soft Cardiovascular: Yes: Pulse Irregular JVD: No Carotid Bruit: No Heart Sounds: Yes: S1, S2 Murmur: Yes: Systolic Murmur, Grade 1 Edema: No - Other Data Labs, Other Data: INR, PTT INR 3.44 (0.82-1.09) H D 12/10/16 01:01 Afib @ 63 PRWP Imaging - Results Chest X-ray: Report Reviewed (Congestion and pleural effusions) Problem List - Problems (1) UTI (urinary tract infection) Code(s): N39.0 - URINARY TRACT INFECTION, SITE NOT SPECIFIED Qualifiers: Urinary tract infection type: site unspecified Hematuria presence: with hematuria Qualified Code(s): N39.0 - Urinary tract infection, site not specified (2) Anemia Code(s): D64.9 - ANEMIA, UNSPECIFIED Qualifiers: Anemia type: unspecified type Qualified Code(s): D64.9 - Anemia, unspecified (3) Atrial fibrillation Code(s): I48.91 - UNSPECIFIED ATRIAL FIBRILLATION Qualifiers: Atrial fibrillation type: persistent Qualified Code(s): I48.1 - Persistent atrial fibrillation (4) CAD (coronary artery disease) Code(s): I25.10 - ATHSCL HEART DISEASE OF [place] CORONARY ARTERY W/O ANG PCTRS Qualifiers: Coronary Disease-Associated Artery/Lesion type: [place] artery [place] vs. transplanted heart: [place] heart Associated angina: without angina Qualified Code(s): I25.10 - Atherosclerotic heart disease of [place] coronary artery without angina pectoris (5) CHF (congestive heart failure) Code(s): I50.9 - HEART FAILURE, UNSPECIFIED Qualifiers: Congestive heart failure type: diastolic Congestive heart failure chronicity: chronic Qualified Code(s): I50.32 - Chronic diastolic ( congestive) heart failure (6) Hyperlipidemia Code(s): E78.5 - HYPERLIPIDEMIA, UNSPECIFIED Qualifiers: Hyperlipidemia type: pure hypercholesterolemia Qualified Code(s): E78.00 - Pure hypercholesterolemia, unspecified; E78.0 - Pure hypercholesterolemia (7) Hypertensive cardiomyopathy Code(s): I11.9 - HYPERTENSIVE HEART DISEASE WITHOUT HEART FAILURE I42.9 - CARDIOMYOPATHY, UNSPECIFIED Qualifiers: Heart failure presence: without heart failure Qualified Code(s): I11.9 - Hypertensive heart disease without heart failure; I43 - Cardiomyopathy in diseases classified elsewhere (8) Hypothyroidism Code(s): E03.9 - HYPOTHYROIDISM, UNSPECIFIED Qualifiers: Hypothyroidism type: unspecified Qualified Code(s): E03.9 - Hypothyroidism, unspecified Assessment/Plan 1. Fevers, dyspnea referable to UTI 2. Coronary artery disease angina pectoris 3. Diastolic left ventricular dysfunction with chronic class 0-I [place] [employer] classification left ventricular failure 4. Permanent Atrial fibrillation [id number] score of 5 on chronic anticoagulation therapy with NOAC's 5. HTN 6. Hypercholesterolemia 7. Hypothyroidism 8. Acute on chronic kidney disease 9. Severe OA/DJD 10. History of spinal stenosis 11. Urinary retention 12. Anemia 13. H/o mechanical fall, chronically dislocated right shoulder currently with an acute, non-displaced proximal humerus fracture for conservative medical management PLAN: 1. Continue Apixaban (Eliquis) 2.5 mg PO BID 2. Continue Atorvastatin (Lipitor) 40 qhs 3. Continue Carvedilol (Coreg) 6.25 bid 4. Continue Ramipril (Altace) 5 qd 5. Continue Furosemide (Lasix) 20 qd 6. Abx course per C&S 7. Thank you for consultative opportunity
[2016-12-10] MEDS: BETHANECHOL CHLORIDE 25 MG TABLET PO SCH ×2 (13:20→21:35)
--- NOTE | 2016-12-10 13:21 | EKG ---
Test Reason : Blood Pressure : / mmHG Vent. Rate : 063 BPM Atrial Rate : 394 BPM P-R Int : 000 ms QRS Dur : 078 ms QT Int : 412 ms P-R-T Axes : 000 055 040 degrees QTc Int : 421 ms ATRIAL FIBRILLATION WITH MODERATE VENTRICULAR RESPONSE POOR R WAVE PROGRESSION V1 TO V3 ,POSSIBILITY OF ANTEROSEPTAL WALL SD CANNOT BE EXCLUDED COMPARED TO ECG [id number] NO MAJOR CHANGES SEEN CORELATE CLINICALLY Confirmed by EMPERATRIZ FOSTER MD ([id number]) on 12/10/2016 1:21:24 PM Referred By: Confirmed By:EMPERATRIZ FOSTER MD
--- NOTE | 2016-12-10 16:45 | CONSULT ---
Consult Consult Specialty:: Oncology- Hematology Referred by:: Dr. 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) History of Recent Travel: No Home Medications - Allergies Allergies/Adverse Reactions: Allergies Allergy/AdvReac Type Severity Reaction Status Date / Time Penicillins Allergy Unknown Verified 12/09/16 23:46 - Home Medications Home Medications: Ambulatory Orders Aa/Hydrolyzed Collagen, Whey [Lps 15-30 Liquid] 30 ml PO DAILY 09/21/16 Acetaminophen [Tylenol] 650 mg PO Q6H PRN 09/21/16 Albuterol 0.083% Nebulizer Shamika [Ventolin 0.083% Nebulizer Soln -] 1 neb NEB Q4H PRN 09/21/16 Apixaban [Eliquis] 2.5 mg PO BID 09/21/16 Atorvastatin Ca [Lipitor] 40 mg PO HS 09/21/16 Carvedilol [Coreg -] 6.25 mg PO BID 09/21/16 Furosemide [Lasix -] 20 mg PO DAILY 09/21/16 Levothyroxine [Synthroid -] 75 mcg PO DAILY 09/21/16 Magnesium Oxide 400 mg PO BID 09/21/16 Ramipril [Altace] 5 mg PO DAILY 09/21/16 Bethanechol Chloride [Bethanechol Chloride -] 25 mg PO TID tablet 09/24/16 Oxycodone HCl/Acetaminophen [Percocet 5-325 mg Tablet] 1 combo PO ONCE PRN #0 tablet MDD 4 09/24/16 Ferrous Sulfate [Feosol] 325 mg PO DAILY 12/09/16 Family Disease History - Family Disease History Family Disease History: Other: Father (CVA 80's), Mother (RA 60's) Review of Systems - Review of Systems Constitutional: reports: Weakness. denies: No Symptoms, Lethargy, Night Sweats Eyes: denies: Blurred Vision, Double Vision HENT: denies: Difficult Swallowing, Throat Pain Neck: denies: Swollen Glands, Tenderness Cardiovascular: reports: Shortness of Breath. denies: Chest Pain Respiratory: reports: Cough, SOB Gastrointestinal: denies: Constipation, Diarrhea Genitourinary: denies: Dysuria, Hematuria Musculoskeletal: reports: Muscle Pain Integumentary: reports: No Symptoms Neurological: reports: No Symptoms Endocrine: reports: No Symptoms Hematology/Lymphatic: denies: Easily Bruised, Excessive Bleeding, Swollen Glands Psychiatric: reports: No Symptoms Physical Exam Vital Signs: Vital Signs Temperature 98.5 F 12/10/16 14:23 Pulse Rate 88 12/10/16 14:23 Respiratory Rate 18 12/10/16 14:23 Blood Pressure 122/68 12/10/16 14:23 O2 Sat by Pulse Oximetry (%) 98 12/10/16 09:00 Constitutional: Yes: No Distress Eyes: Yes: PERRL. No: Ptosis, Sclera Icterus HENT: Yes: Atraumatic, Normocephalic, Other (dentures; decrease papillation of tongue). No: Nasal Congestion, Tonsillar Exudate Neck: Yes: Supple. No: Lymphadenopathy, Thyromegaly Cardiovascular: Yes: Pulse Irregular, Murmur Respiratory: Yes: CTA Bilaterally Gastrointestinal: Yes: Normal Bowel Sounds, Soft. No: Hepatomegaly, Splenomegaly, Tenderness Renal/: No: CVA Tenderness - Left, CVA Tenderness - Right Breast(s): Yes: WNL, Left, Right Musculoskeletal: No: Back Pain Extremities: No: Calf Tenderness, Cyanosis Edema: No Integumentary: No: Bruising, Erythema Neurological: Yes: Other (dementia Year-80's; President - not known; age -not known) Problem List - Problems (1) Altered mental status Assessment/Plan: Not oriented to year; President; age Code(s): R41.82 - ALTERED MENTAL STATUS, UNSPECIFIED Qualifiers: Altered mental status type: unspecified Qualified Code(s): R41.82 - Altered mental status, unspecified (2) Anemia Assessment/Plan: Nc/ NC; Reverse A/G; Mild azotemia To screen with Fe++ studies ,additional screening including protein studies Code(s): D64.9 - ANEMIA, UNSPECIFIED Qualifiers: Anemia type: unspecified type Qualified Code(s): D64.9 - Anemia, unspecified (3) Atrial fibrillation Assessment/Plan: On Eliquis Code(s): I48.91 - UNSPECIFIED ATRIAL FIBRILLATION Qualifiers: Atrial fibrillation type: persistent Qualified Code(s): I48.1 - Persistent atrial fibrillation (4) Hypothyroidism Assessment/Plan: Check TSH Code(s): E03.9 - HYPOTHYROIDISM, UNSPECIFIED Qualifiers: Hypothyroidism type: unspecified Qualified Code(s): E03.9 - Hypothyroidism, unspecified
[2016-12-10] MEDS: ATORVASTATIN CA 40 MG TABLET (FP) PO SCH (21:32)
[2016-12-11] MEDS: BETHANECHOL CHLORIDE 25 MG TABLET PO SCH ×3 (05:44→21:32)
[2016-12-11] MEDS: INSULIN SLIDING SCALE (NOVOLOG) 1 VIAL SQ SCH ×4 (06:07→21:32)
[2016-12-11] MEDS: LEVOTHYROXINE NA 75 MCG TABLET (FP) PO SCH (06:07)
[2016-12-11 08:10] LABS: ALBUMIN 2.3 g/dl (3.4-5.0); ANION GAP 8 (8-16); CALCIUM 7.7 mg/dL (8.5-10.1); CO2 26 mmol/L (21-32); CREATININE 1.2 mg/dL (0.55-1.02); GLUCOSE,RANDOM 89 mg/dL (74-106); SGOT/AST 38 U/L (15-37); SGPT/ALT 33 U/L (12-78)
[2016-12-11 08:17] LABS: BASOPHIL 0.2 % (0-2.0); MCH 30.1 pg (25.7-33.7); MCHC 33.2 g/dl (32.0-36.0); MEAN CELL VOLUME 90.5 fl (80-96); MEAN PLT VOLUME 7.5 fl (7.5-11.1); NEUTROPHILS 73.9 % (42.8-82.8); PLATELET COUNT 242 K/MM3 (134-434); RDW 18.7 % (11.6-15.6)
[2016-12-11 08:19] LABS: ALK PHOS 68 U/L (45-117); BILIRUBIN,TOTAL 0.5 mg/dL (0.2-1.0); FERRITIN 189.002 ng/ml (6.9-282.5); TOT PROT 5.3 g/dl (6.4-8.2); TROPONIN I < 0.02 ng/ml (0.00-0.05)
[2016-12-11] MEDS: MAGNESIUM OXIDE 400 MG TABLET (FP) PO SCH ×2 (10:41→21:32)
[2016-12-11] MEDS: CARVEDILOL 6.25 MG TABLET (FP) PO SCH ×2 (10:41→21:32)
[2016-12-11] MEDS: FUROSEMIDE 20 MG TABLET (FP) PO SCH (10:41)
[2016-12-11] MEDS: RAMIPRIL 5 MG CAPSULE (FP) PO SCH (10:42)
[2016-12-11] MEDS: FERROUS SO4 325 MG TABLET (FP) PO SCH (10:42)
[2016-12-11] MEDS: LEVOFLOXACIN 250 MG IVPB 50 ML IVPB SCH (10:42)
[2016-12-11] MEDS ORDERED: PT OWN MED DRAWER 7, Y5N ONE ×2 (10:44→21:26)
[2016-12-11] MEDS: APIXABAN 2.5 MG TABLET PO SCH ×2 (10:45→22:53)
[2016-12-11 10:49] LABS: ERYTHROCYTE SEDIMENTATION RATE 55 mm/hr (0-30)
--- NOTE | 2016-12-11 12:11 | PN ---
Progress Note, Physician History of Present Illness: Afebrile overnight. - Current Medication List Current Medications: Active Medications Acetaminophen (Tylenol -) 650 mg PO Q6H PRN PRN Reason: FEVER OR PAIN Acetaminophen (Tylenol -) 650 mg PO Q6H PRN PRN Reason: pain,fever Acetaminophen (Tylenol -) 325 mg PO Q12H PRN PRN Reason: SEVERE PAIN Albuterol Sulfate (Ventolin 0.083% Nebulizer Soln -) 1 amp NEB Q4H PRN PRN Reason: sob Apixaban (Eliquis -) 2.5 mg PO BID [facility] Last Admin: 12/11/16 10:45 Dose: 2.5 mg Atorvastatin Calcium (Lipitor -) 40 mg PO HS [facility] Last Admin: 12/10/16 21:32 Dose: 40 mg Bethanechol Chloride (Urecholine -) 25 mg PO TID [facility] Last Admin: 12/11/16 05:44 Dose: 25 mg Carvedilol (Coreg -) 6.25 mg PO BID [facility] Last Admin: 12/11/16 10:41 Dose: 6.25 mg Ferrous Sulfate (Feosol -) 325 mg PO DAILY [facility] Last Admin: 12/11/16 10:42 Dose: 325 mg Furosemide (Lasix -) 20 mg PO DAILY [facility] Last Admin: 12/11/16 10:41 Dose: 20 mg Levofloxacin (Levaquin 250 Mg Premixed Ivpb -) 50 mls @ 50 mls/hr IVPB DAILY [facility] Last Admin: 12/11/16 10:42 Dose: 50 mls/hr Insulin Aspart (Novolog Vial Sliding Scale -) 1 vial SQ ACHS [facility] PRN Reason: Protocol Last Admin: 12/11/16 11:46 Dose: Not Given Levothyroxine Sodium (Synthroid -) 75 mcg PO ACBK [facility] Last Admin: 12/11/16 06:07 Dose: 75 mcg Magnesium Oxide (Mag-Ox -) 400 mg PO BID [facility] Last Admin: 12/11/16 10:41 Dose: 400 mg Oxycodone HCl (Roxicodone -) 5 mg PO Q12H PRN PRN Reason: SEVERE PAIN Ramipril (Altace -) 5 mg PO DAILY [facility] Last Admin: 12/11/16 10:42 Dose: 5 mg - Objective Vital Signs: Vital Signs Temperature 99.2 F 12/11/16 10:00 Pulse Rate 86 12/11/16 11:20 Respiratory Rate 18 12/11/16 10:00 Blood Pressure 132/55 12/11/16 10:00 O2 Sat by Pulse Oximetry (%) 99 12/11/16 11:20 Constitutional: Yes: No Distress, Calm Neck: Yes: Supple Cardiovascular: Yes: Regular Rate and Rhythm Respiratory: Yes: Regular, Diminished Gastrointestinal: Yes: Normal Bowel Sounds, Soft Edema: No Labs: CBC, BMP 12/11/16 06:10 12/11/16 06:10 INR, PTT INR 3.44 (0.82-1.09) H D 12/10/16 01:01 Problem List - Problems (1) UTI (urinary tract infection) Code(s): N39.0 - URINARY TRACT INFECTION, SITE NOT SPECIFIED Qualifiers: Urinary tract infection type: site unspecified Hematuria presence: with hematuria Qualified Code(s): N39.0 - Urinary tract infection, site not specified (2) Anemia Code(s): D64.9 - ANEMIA, UNSPECIFIED Qualifiers: Anemia type: unspecified type Qualified Code(s): D64.9 - Anemia, unspecified (3) Atrial fibrillation Code(s): I48.91 - UNSPECIFIED ATRIAL FIBRILLATION Qualifiers: Atrial fibrillation type: persistent Qualified Code(s): I48.1 - Persistent atrial fibrillation (4) CAD (coronary artery disease) Code(s): I25.10 - ATHSCL HEART DISEASE OF [place] CORONARY ARTERY W/O ANG PCTRS Qualifiers: Coronary Disease-Associated Artery/Lesion type: [place] artery [place] vs. transplanted heart: [place] heart Associated angina: without angina Qualified Code(s): I25.10 - Atherosclerotic heart disease of [place] coronary artery without angina pectoris (5) CHF (congestive heart failure) Code(s): I50.9 - HEART FAILURE, UNSPECIFIED Qualifiers: Congestive heart failure type: diastolic Congestive heart failure chronicity: chronic Qualified Code(s): I50.32 - Chronic diastolic ( congestive) heart failure (6) Hyperlipidemia Code(s): E78.5 - HYPERLIPIDEMIA, UNSPECIFIED Qualifiers: Hyperlipidemia type: pure hypercholesterolemia Qualified Code(s): E78.00 - Pure hypercholesterolemia, unspecified; E78.0 - Pure hypercholesterolemia (7) Hypertensive cardiomyopathy Code(s): I11.9 - HYPERTENSIVE HEART DISEASE WITHOUT HEART FAILURE I42.9 - CARDIOMYOPATHY, UNSPECIFIED Qualifiers: Heart failure presence: without heart failure Qualified Code(s): I11.9 - Hypertensive heart disease without heart failure; I43 - Cardiomyopathy in diseases classified elsewhere (8) Hypothyroidism Code(s): E03.9 - HYPOTHYROIDISM, UNSPECIFIED Qualifiers: Hypothyroidism type: unspecified Qualified Code(s): E03.9 - Hypothyroidism, unspecified Assessment/Plan 1. Fevers, dyspnea referable to UTI 2. Coronary artery disease angina pectoris 3. Diastolic left ventricular dysfunction with chronic class 0-I [place] [employer] classification left ventricular failure 4. Permanent Atrial fibrillation [id number] score of 5 on chronic anticoagulation therapy with NOAC's 5. HTN 6. Hypercholesterolemia 7. Hypothyroidism 8. Acute on chronic kidney disease 9. Severe OA/DJD 10. History of spinal stenosis 11. Urinary retention 12. Anemia 13. H/o mechanical fall, chronically dislocated right shoulder currently with an acute, non-displaced proximal humerus fracture for conservative medical management PLAN: 1. Continue Apixaban (Eliquis) 2.5 mg PO BID 2. Continue Atorvastatin (Lipitor) 40 qhs 3. Continue Carvedilol (Coreg) 6.25 bid 4. Continue Ramipril (Altace) 5 qd 5. Continue Furosemide (Lasix) 20 qd 6. Abx course per C&S
--- NOTE | 2016-12-11 12:38 | PN ---
Progress Note, Physician History of Present Illness: Pt c/o ncough. Pt w/ofever, chills, SOB, CP, palp, abd pain, dysuria. - Current Medication List Current Medications: Active Medications Acetaminophen (Tylenol -) 650 mg PO Q6H PRN PRN Reason: FEVER OR PAIN Acetaminophen (Tylenol -) 650 mg PO Q6H PRN PRN Reason: pain,fever Acetaminophen (Tylenol -) 325 mg PO Q12H PRN PRN Reason: SEVERE PAIN Albuterol Sulfate (Ventolin 0.083% Nebulizer Soln -) 1 amp NEB Q4H PRN PRN Reason: sob Apixaban (Eliquis -) 2.5 mg PO BID [facility] [place] Last Admin: 12/11/16 10:45 Dose: 2.5 mg Atorvastatin Calcium (Lipitor -) 40 mg PO HS [facility] [place] Last Admin: 12/10/16 21:32 Dose: 40 mg Bethanechol Chloride (Urecholine -) 25 mg PO TID [facility] [place] Last Admin: 12/11/16 05:44 Dose: 25 mg Carvedilol (Coreg -) 6.25 mg PO BID [facility] [place] Last Admin: 12/11/16 10:41 Dose: 6.25 mg Ferrous Sulfate (Feosol -) 325 mg PO DAILY [facility] [place] Last Admin: 12/11/16 10:42 Dose: 325 mg Furosemide (Lasix -) 20 mg PO DAILY [facility] [place] Last Admin: 12/11/16 10:41 Dose: 20 mg Levofloxacin (Levaquin 250 Mg Premixed Ivpb -) 50 mls @ 50 mls/hr IVPB DAILY [facility] [place] Last Admin: 12/11/16 10:42 Dose: 50 mls/hr Insulin Aspart (Novolog Vial Sliding Scale -) 1 vial SQ ACHS [facility] [place] PRN Reason: Protocol Last Admin: 12/11/16 11:46 Dose: Not Given Levothyroxine Sodium (Synthroid -) 75 mcg PO ACBK [facility] [place] Last Admin: 12/11/16 06:07 Dose: 75 mcg Magnesium Oxide (Mag-Ox -) 400 mg PO BID [facility] [place] Last Admin: 12/11/16 10:41 Dose: 400 mg Oxycodone HCl (Roxicodone -) 5 mg PO Q12H PRN PRN Reason: SEVERE PAIN Ramipril (Altace -) 5 mg PO DAILY [facility] [place] Last Admin: 12/11/16 10:42 Dose: 5 mg - Objective Vital Signs: Vital Signs Temperature 99.2 F 12/11/16 10:00 Pulse Rate 86 12/11/16 11:20 Respiratory Rate 18 12/11/16 10:00 Blood Pressure 132/55 12/11/16 10:00 O2 Sat by Pulse Oximetry (%) 99 12/11/16 11:20 Constitutional: Yes: No Distress, Calm Cardiovascular: Yes: Pulse Irregular, S1, S2 Respiratory: Yes: Regular, Other (coarse BS throughout lung guzman) Gastrointestinal: Yes: Normal Bowel Sounds Edema: No Neurological: Yes: Alert, Oriented (to person, place) Labs: CBC, BMP 12/11/16 06:10 12/11/16 06:10 INR, PTT INR 3.44 (0.82-1.09) H D 12/10/16 01:01 Problem List - Problems (1) UTI (urinary tract infection) Code(s): N39.0 - URINARY TRACT INFECTION, SITE NOT SPECIFIED Qualifiers: Urinary tract infection type: site unspecified Hematuria presence: with hematuria Qualified Code(s): N39.0 - Urinary tract infection, site not specified (2) Bandemia Code(s): D72.825 - BANDEMIA (3) CAD (coronary artery disease) Code(s): I25.10 - ATHSCL HEART DISEASE OF [place] CORONARY ARTERY W/O ANG PCTRS Qualifiers: Coronary Disease-Associated Artery/Lesion type: [place] artery [place] vs. transplanted heart: [place] heart Associated angina: without angina Qualified Code(s): I25.10 - Atherosclerotic heart disease of [place] coronary artery without angina pectoris (4) CHF (congestive heart failure) Code(s): I50.9 - HEART FAILURE, UNSPECIFIED Qualifiers: Congestive heart failure type: diastolic Congestive heart failure chronicity: chronic Qualified Code(s): I50.32 - Chronic diastolic ( congestive) heart failure (5) Anemia Code(s): D64.9 - ANEMIA, UNSPECIFIED Qualifiers: Anemia type: unspecified type Qualified Code(s): D64.9 - Anemia, unspecified (6) MDS (myelodysplastic syndrome) Code(s): D46.9 - MYELODYSPLASTIC SYNDROME, UNSPECIFIED (7) HTN (hypertension) Code(s): I10 - ESSENTIAL (PRIMARY) HYPERTENSION Assessment/Plan TO f/u BCX, UCX Cont. IV abtx. Cardio Consult appreciated Heme Consult appreciated AM labs
[2016-12-11] MEDS: guaiFENesin/D-METHORPHAN HB 10 ML UNIT-DOSE CUPS PO SCH ×4 (13:06→21:32)
[2016-12-11] MEDS: ATORVASTATIN CA 40 MG TABLET (FP) PO SCH (21:32)
[2016-12-12] MEDS: guaiFENesin/D-METHORPHAN HB 10 ML UNIT-DOSE CUPS PO SCH ×5 (02:11→18:04)
[2016-12-12 06:06] LABS: SERUM IRON 13 ug/dL (27-139); TOTAL IRON BINDING CAPACITY 157 ug/dL (250-450); UIBC 144 ug/dL (118-369)
[2016-12-12] MEDS: INSULIN SLIDING SCALE (NOVOLOG) 1 VIAL SQ SCH ×4 (06:49→21:05)
[2016-12-12] MEDS: LEVOTHYROXINE NA 75 MCG TABLET (FP) PO SCH (06:49)
[2016-12-12] MEDS: BETHANECHOL CHLORIDE 25 MG TABLET PO SCH ×3 (06:49→21:02)
[2016-12-12 07:55] LABS: MEAN CELL VOLUME 90.9 fl (80-96); MEAN PLT VOLUME 7.3 fl (7.5-11.1); PLATELET COUNT 264 K/MM3 (134-434); RDW 18.3 % (11.6-15.6); WHITE BLOOD COUNT 9.3 K/mm3 (4.0-10.0)
[2016-12-12 08:37] LABS: ALBUMIN 2.2 g/dl (3.4-5.0); ALK PHOS 71 U/L (45-117); ANION GAP 7 (8-16); BILIRUBIN,TOTAL 0.5 mg/dL (0.2-1.0); CALCIUM 7.7 mg/dL (8.5-10.1); CO2 27 mmol/L (21-32); CREATININE 1.2 mg/dL (0.55-1.02); GLUCOSE,RANDOM 88 mg/dL (74-106); SGOT/AST 62 U/L (15-37); SGPT/ALT 59 U/L (12-78); TOT PROT 5.1 g/dl (6.4-8.2)
[2016-12-12] MEDS ORDERED: PT OWN MED DRAWER 7, Y5N ONE ×2 (10:13→20:54)
[2016-12-12] MEDS: MAGNESIUM OXIDE 400 MG TABLET (FP) PO SCH ×2 (10:14→21:02)
[2016-12-12] MEDS: RAMIPRIL 5 MG CAPSULE (FP) PO SCH (10:14)
[2016-12-12] MEDS: FUROSEMIDE 20 MG TABLET (FP) PO SCH (10:14)
[2016-12-12] MEDS: FERROUS SO4 325 MG TABLET (FP) PO SCH (10:14)
[2016-12-12] MEDS: APIXABAN 2.5 MG TABLET PO SCH ×2 (10:14→21:02)
[2016-12-12] MEDS: CARVEDILOL 6.25 MG TABLET (FP) PO SCH ×2 (10:14→21:02)
[2016-12-12] MEDS: LEVOFLOXACIN 250 MG IVPB 50 ML IVPB SCH (10:14)
--- NOTE | 2016-12-12 11:50 | PN ---
Progress Note, Physician History of Present Illness: Afebrile overnight. - Current Medication List Current Medications: Active Medications Acetaminophen (Tylenol -) 650 mg PO Q6H PRN PRN Reason: FEVER OR PAIN Acetaminophen (Tylenol -) 650 mg PO Q6H PRN PRN Reason: pain,fever Acetaminophen (Tylenol -) 325 mg PO Q12H PRN PRN Reason: SEVERE PAIN Albuterol Sulfate (Ventolin 0.083% Nebulizer Soln -) 1 amp NEB Q4H PRN PRN Reason: sob Apixaban (Eliquis -) 2.5 mg PO BID [facility] Last Admin: 12/12/16 10:14 Dose: 2.5 mg Atorvastatin Calcium (Lipitor -) 40 mg PO HS [facility] Last Admin: 12/11/16 21:32 Dose: 40 mg Bethanechol Chloride (Urecholine -) 25 mg PO TID [facility] Last Admin: 12/12/16 06:49 Dose: 25 mg Carvedilol (Coreg -) 6.25 mg PO BID [facility] Last Admin: 12/12/16 10:14 Dose: 6.25 mg Ferrous Sulfate (Feosol -) 325 mg PO DAILY [facility] Last Admin: 12/12/16 10:14 Dose: 325 mg Furosemide (Lasix -) 20 mg PO DAILY [facility] Last Admin: 12/12/16 10:14 Dose: 20 mg Guaifenesin (Robitussin Dm -) 10 ml PO Q4HPO [facility] Last Admin: 12/12/16 10:30 Dose: 10 ml Levofloxacin (Levaquin 250 Mg Premixed Ivpb -) 50 mls @ 50 mls/hr IVPB DAILY [facility] Last Admin: 12/12/16 10:14 Dose: 50 mls/hr Insulin Aspart (Novolog Vial Sliding Scale -) 1 vial SQ ACHS [facility] PRN Reason: Protocol Last Admin: 12/12/16 06:49 Dose: Not Given Levothyroxine Sodium (Synthroid -) 75 mcg PO ACBK [facility] Last Admin: 12/12/16 06:49 Dose: 75 mcg Magnesium Oxide (Mag-Ox -) 400 mg PO BID [facility] Last Admin: 12/12/16 10:14 Dose: 400 mg Oxycodone HCl (Roxicodone -) 5 mg PO Q12H PRN PRN Reason: SEVERE PAIN Ramipril (Altace -) 5 mg PO DAILY [facility] Last Admin: 12/12/16 10:14 Dose: 5 mg - Objective Vital Signs: Vital Signs Temperature 98.9 F 12/12/16 06:00 Pulse Rate 71 12/12/16 06:00 Respiratory Rate 18 12/12/16 06:00 Blood Pressure 125/53 12/12/16 06:00 O2 Sat by Pulse Oximetry (%) 99 12/11/16 21:00 Constitutional: Yes: No Distress, Calm Neck: Yes: Supple Cardiovascular: Yes: Regular Rate and Rhythm, Murmur (2/6 SM) Respiratory: Yes: Regular, CTA Bilaterally Gastrointestinal: Yes: Normal Bowel Sounds, Soft Edema: No Labs: CBC, BMP 12/12/16 06:00 12/12/16 06:00 INR, PTT INR 3.44 (0.82-1.09) H D 12/10/16 01:01 Problem List - Problems (1) UTI (urinary tract infection) Code(s): N39.0 - URINARY TRACT INFECTION, SITE NOT SPECIFIED Qualifiers: Urinary tract infection type: site unspecified Hematuria presence: with hematuria Qualified Code(s): N39.0 - Urinary tract infection, site not specified (2) Anemia Code(s): D64.9 - ANEMIA, UNSPECIFIED Qualifiers: Anemia type: unspecified type Qualified Code(s): D64.9 - Anemia, unspecified (3) Atrial fibrillation Code(s): I48.91 - UNSPECIFIED ATRIAL FIBRILLATION Qualifiers: Atrial fibrillation type: persistent Qualified Code(s): I48.1 - Persistent atrial fibrillation (4) CAD (coronary artery disease) Code(s): I25.10 - ATHSCL HEART DISEASE OF [place] CORONARY ARTERY W/O ANG PCTRS Qualifiers: Coronary Disease-Associated Artery/Lesion type: [place] artery [place] vs. transplanted heart: [place] heart Associated angina: without angina Qualified Code(s): I25.10 - Atherosclerotic heart disease of [place] coronary artery without angina pectoris (5) CHF (congestive heart failure) Code(s): I50.9 - HEART FAILURE, UNSPECIFIED Qualifiers: Congestive heart failure type: diastolic Congestive heart failure chronicity: chronic Qualified Code(s): I50.32 - Chronic diastolic ( congestive) heart failure (6) Hyperlipidemia Code(s): E78.5 - HYPERLIPIDEMIA, UNSPECIFIED Qualifiers: Hyperlipidemia type: pure hypercholesterolemia Qualified Code(s): E78.00 - Pure hypercholesterolemia, unspecified; E78.0 - Pure hypercholesterolemia (7) Hypertensive cardiomyopathy Code(s): I11.9 - HYPERTENSIVE HEART DISEASE WITHOUT HEART FAILURE I42.9 - CARDIOMYOPATHY, UNSPECIFIED Qualifiers: Heart failure presence: without heart failure Qualified Code(s): I11.9 - Hypertensive heart disease without heart failure; I43 - Cardiomyopathy in diseases classified elsewhere (8) Hypothyroidism Code(s): E03.9 - HYPOTHYROIDISM, UNSPECIFIED Qualifiers: Hypothyroidism type: unspecified Qualified Code(s): E03.9 - Hypothyroidism, unspecified Assessment/Plan 12/11/2016 Echo: Normal biventricular size and fxn, mod MELANIE, mod MR, mod-severe TR 1. Fevers, dyspnea referable to UTI improving 2. Coronary artery disease angina pectoris 3. Diastolic left ventricular dysfunction with chronic class 0-I [place] [employer] classification left ventricular failure 4. Permanent Atrial fibrillation [id number] score of 5 on chronic anticoagulation therapy with NOAC's 5. HTN 6. Hypercholesterolemia 7. Hypothyroidism 8. Acute on chronic kidney disease 9. Severe OA/DJD 10. History of spinal stenosis 11. Urinary retention 12. Anemia 13. H/o mechanical fall, chronically dislocated right shoulder currently with an acute, non-displaced proximal humerus fracture for conservative medical management PLAN: 1. Continue Apixaban (Eliquis) 2.5 mg PO BID 2. Continue Atorvastatin (Lipitor) 40 qhs 3. Continue Carvedilol (Coreg) 6.25 bid 4. Continue Ramipril (Altace) 5 qd 5. Continue Furosemide (Lasix) 20 qd 6. Complete abx course per C&S NGTD thus far
--- NOTE | 2016-12-12 19:07 | PN ---
Progress Note (short form) - Note Progress Note: PAtient seen and examined Feels OK Last Vital Signs Temp Pulse Resp BP Pulse Ox 98.9 F 76 18 133/57 99 12/12/16 18:56 12/12/16 18:56 12/12/16 18:56 12/12/16 18:56 12/11/16 21:00 Cor: RSR, No murmurs, No gallops Lungs: Clear to P&A Abd: Soft, Normal bowel sounds, No organomegaly Ext:No significant edema Skin: No rashes, Integument intact Abnormal Lab Results 12/11/16 12/12/16 12/12/16 06:10 06:00 06:00 RBC 2.98 L Hgb 9.0 L Hct 27.1 L RDW 18.3 H MPV 7.3 L Chloride 108 H Anion Gap 7 L BUN 36 H Creatinine 1.2 H Calcium 7.7 L Iron 13 L TIBC 157 L Iron Saturation 8 L AST 62 H D Total Protein 5.1 L Albumin 2.2 L Active Medications Generic Name Dose Route Start Last Admin Trade Name Freq PRN Reason Stop Dose Admin Acetaminophen 650 mg 12/10/16 07:00 Tylenol - PO Q6H PRN FEVER OR PAIN Acetaminophen 650 mg 12/10/16 09:56 Tylenol - PO Q6H PRN pain,fever Acetaminophen 325 mg 12/10/16 10:24 Tylenol - PO Q12H PRN SEVERE PAIN Albuterol Sulfate 1 amp 12/10/16 09:56 Ventolin 0.083% Nebulizer Soln - NEB Q4H PRN sob Apixaban 2.5 mg 12/10/16 10:00 12/12/16 10:14 Eliquis - PO 2.5 mg BID [facility]DA Administration Atorvastatin Calcium 40 mg 12/10/16 22:00 12/11/16 21:32 Lipitor - PO 40 mg HS ELDA Administration Bethanechol Chloride 25 mg 12/10/16 14:00 12/12/16 16:05 Urecholine - PO 25 mg TID [facility] Administration Carvedilol 6.25 mg 12/10/16 10:00 12/12/16 10:14 Coreg - PO 6.25 mg BID [facility] Administration Ferrous Sulfate 325 mg 12/10/16 10:00 12/12/16 10:14 Feosol - PO 325 mg DAILY [facility] Administration Furosemide 20 mg 12/10/16 10:00 12/12/16 10:14 Lasix - PO 20 mg DAILY [facility] Administration Guaifenesin 10 ml 12/11/16 12:45 12/12/16 18:04 Robitussin Dm - PO 10 ml Q4HPO [facility] Administration Levofloxacin 50 mls @ 50 mls/hr 12/10/16 10:00 12/12/16 10:14 Levaquin 250 Mg Premixed Ivpb - IVPB 50 mls/hr DAILY [facility] Administration Insulin Aspart 1 vial 12/10/16 11:00 12/12/16 18:01 Novolog Vial Sliding Scale - SQ Not Given ACHS [facility] Protocol Levothyroxine Sodium 75 mcg 12/10/16 10:00 12/12/16 06:49 Synthroid - PO 75 mcg ACBK [facility] Administration Magnesium Oxide 400 mg 12/10/16 10:00 12/12/16 10:14 Mag-Ox - PO 400 mg BID [facility] Administration Oxycodone HCl 5 mg 12/10/16 10:23 Roxicodone - PO Q12H PRN SEVERE PAIN Ramipril 5 mg 12/10/16 10:00 12/12/16 10:14 Altace - PO 5 mg DAILY [facility] Administration A/P 86 y/o withh/o MDS , iron deficiency anemia,+ anemia of chronic disease. low iron sat. Nl B12/TSH Also with HTN, HLD, CKD, CHF, Afib On eliquis monitor CBC
--- NOTE | 2016-12-12 19:28 | PN ---
Progress Note, Physician History of Present Illness: Pt c/o cough; confirmed with pt's nurse Pt w/o fever, chills, SOB, CP, palp, abd pain, dysuria. - Current Medication List Current Medications: Active Medications Acetaminophen (Tylenol -) 650 mg PO Q6H PRN PRN Reason: FEVER OR PAIN Acetaminophen (Tylenol -) 650 mg PO Q6H PRN PRN Reason: pain,fever Acetaminophen (Tylenol -) 325 mg PO Q12H PRN PRN Reason: SEVERE PAIN Albuterol Sulfate (Ventolin 0.083% Nebulizer Soln -) 1 amp NEB Q4H PRN PRN Reason: sob Apixaban (Eliquis -) 2.5 mg PO BID [facility] Last Admin: 12/12/16 10:14 Dose: 2.5 mg Atorvastatin Calcium (Lipitor -) 40 mg PO HS [facility] Last Admin: 12/11/16 21:32 Dose: 40 mg Bethanechol Chloride (Urecholine -) 25 mg PO TID [facility] Last Admin: 12/12/16 16:05 Dose: 25 mg Carvedilol (Coreg -) 6.25 mg PO BID [facility] Last Admin: 12/12/16 10:14 Dose: 6.25 mg Ferrous Sulfate (Feosol -) 325 mg PO DAILY [facility] Last Admin: 12/12/16 10:14 Dose: 325 mg Furosemide (Lasix -) 20 mg PO DAILY [facility] Last Admin: 12/12/16 10:14 Dose: 20 mg Guaifenesin (Robitussin Dm -) 10 ml PO Q4HPO [facility] Last Admin: 12/12/16 18:04 Dose: 10 ml Levofloxacin (Levaquin 250 Mg Premixed Ivpb -) 50 mls @ 50 mls/hr IVPB DAILY [facility] Last Admin: 12/12/16 10:14 Dose: 50 mls/hr Insulin Aspart (Novolog Vial Sliding Scale -) 1 vial SQ ACHS [facility] PRN Reason: Protocol Last Admin: 12/12/16 18:01 Dose: Not Given Levothyroxine Sodium (Synthroid -) 75 mcg PO ACBK [facility] Last Admin: 12/12/16 06:49 Dose: 75 mcg Magnesium Oxide (Mag-Ox -) 400 mg PO BID [facility] Last Admin: 12/12/16 10:14 Dose: 400 mg Oxycodone HCl (Roxicodone -) 5 mg PO Q12H PRN PRN Reason: SEVERE PAIN Ramipril (Altace -) 5 mg PO DAILY [facility] Last Admin: 12/12/16 10:14 Dose: 5 mg - Objective Vital Signs: Vital Signs Temperature 98.9 F 12/12/16 18:56 Pulse Rate 76 12/12/16 18:56 Respiratory Rate 18 12/12/16 18:56 Blood Pressure 133/57 12/12/16 18:56 O2 Sat by Pulse Oximetry (%) 99 12/11/16 21:00 Constitutional: Yes: No Distress, Calm Cardiovascular: Yes: Regular Rate and Rhythm, S1, S2 Respiratory: Yes: Regular, Rales Gastrointestinal: Yes: Normal Bowel Sounds, Soft. No: Tenderness Extremities: Yes: Shortened Neurological: Yes: Alert, Oriented (to person) Labs: CBC, BMP 12/12/16 06:00 12/12/16 06:00 INR, PTT INR 3.44 (0.82-1.09) H D 12/10/16 01:01 Problem List - Problems (1) UTI (urinary tract infection) Code(s): N39.0 - URINARY TRACT INFECTION, SITE NOT SPECIFIED Qualifiers: Urinary tract infection type: site unspecified Hematuria presence: with hematuria Qualified Code(s): N39.0 - Urinary tract infection, site not specified (2) Bandemia Code(s): D72.825 - BANDEMIA (3) CAD (coronary artery disease) Code(s): I25.10 - ATHSCL HEART DISEASE OF [place] CORONARY ARTERY W/O ANG PCTRS Qualifiers: Coronary Disease-Associated Artery/Lesion type: [place] artery [place] vs. transplanted heart: [place] heart Associated angina: without angina Qualified Code(s): I25.10 - Atherosclerotic heart disease of [place] coronary artery without angina pectoris (4) CHF (congestive heart failure) Code(s): I50.9 - HEART FAILURE, UNSPECIFIED Qualifiers: Congestive heart failure type: diastolic Congestive heart failure chronicity: chronic Qualified Code(s): I50.32 - Chronic diastolic ( congestive) heart failure (5) Anemia Code(s): D64.9 - ANEMIA, UNSPECIFIED Qualifiers: Anemia type: unspecified type Qualified Code(s): D64.9 - Anemia, unspecified (6) MDS (myelodysplastic syndrome) Code(s): D46.9 - MYELODYSPLASTIC SYNDROME, UNSPECIFIED (7) HTN (hypertension) Code(s): I10 - ESSENTIAL (PRIMARY) HYPERTENSION Assessment/Plan TO f/u BCX, UCX Cont. IV abtx. Cardio Consult appreciated Heme Consult appreciated AM labs
[2016-12-12] MEDS: ATORVASTATIN CA 40 MG TABLET (FP) PO SCH (21:02)
[2016-12-13 00:19] LABS: A/G RATIO 0.8 (0.7-1.7); ALBUMIN 2.3 g/dL (2.9-4.4); ALPHA-1-GLOBULIN 0.4 g/dL (0.0-0.4); BETA GLOBULIN 0.6 g/dL (0.7-1.3); GLOBULIN, TOTAL 2.9 g/dL (2.2-3.9); M-SPIKE Not Observed g/dL (Not Observed); TOTAL PROTEIN 5.2 g/dL (6.0-8.5)
[2016-12-13] MEDS: BETHANECHOL CHLORIDE 25 MG TABLET PO SCH ×3 (05:55→21:39)
[2016-12-13] MEDS: LEVOTHYROXINE NA 75 MCG TABLET (FP) PO SCH (06:05)
[2016-12-13] MEDS: INSULIN SLIDING SCALE (NOVOLOG) 1 VIAL SQ SCH ×4 (06:05→21:40)
[2016-12-13 08:04] LABS: MCH 30.5 pg (25.7-33.7); MCHC 33.6 g/dl (32.0-36.0); MEAN CELL VOLUME 90.6 fl (80-96); MEAN PLT VOLUME 7.1 fl (7.5-11.1); PLATELET COUNT 305 K/MM3 (134-434); RDW 18.4 % (11.6-15.6); WHITE BLOOD COUNT 8.4 K/mm3 (4.0-10.0)
[2016-12-13 09:13] LABS: ANION GAP 7 (8-16); CALCIUM 7.6 mg/dL (8.5-10.1); CO2 28 mmol/L (21-32); GLUCOSE,RANDOM 93 mg/dL (74-106)
[2016-12-13] MEDS ORDERED: PT OWN MED DRAWER 7, Y5N ONE (10:13)
[2016-12-13] MEDS: MAGNESIUM OXIDE 400 MG TABLET (FP) PO SCH ×2 (10:14→21:39)
[2016-12-13] MEDS: CARVEDILOL 6.25 MG TABLET (FP) PO SCH ×2 (10:14→21:39)
[2016-12-13] MEDS: FERROUS SO4 325 MG TABLET (FP) PO SCH (10:14)
[2016-12-13] MEDS: RAMIPRIL 5 MG CAPSULE (FP) PO SCH (10:14)
[2016-12-13] MEDS: FUROSEMIDE 20 MG TABLET (FP) PO SCH (10:14)
[2016-12-13] MEDS: APIXABAN 2.5 MG TABLET PO SCH ×2 (10:15→21:39)
[2016-12-13] MEDS: LEVOFLOXACIN 250 MG IVPB 50 ML IVPB SCH (10:15)
[2016-12-13 10:52] LABS: METAMYELOCYTE 1 % (0-2); PLATELET ESTIMATE ADEQUATE (NORMAL)
--- NOTE | 2016-12-13 12:01 | PN ---
Progress Note, Physician History of Present Illness: Remains afebrile. - Current Medication List Current Medications: Active Medications Acetaminophen (Tylenol -) 650 mg PO Q6H PRN PRN Reason: FEVER OR PAIN Acetaminophen (Tylenol -) 650 mg PO Q6H PRN PRN Reason: pain,fever Acetaminophen (Tylenol -) 325 mg PO Q12H PRN PRN Reason: SEVERE PAIN Albuterol Sulfate (Ventolin 0.083% Nebulizer Soln -) 1 amp NEB Q4H PRN PRN Reason: sob Apixaban (Eliquis -) 2.5 mg PO BID [facility] Last Admin: 12/13/16 10:15 Dose: 2.5 mg Atorvastatin Calcium (Lipitor -) 40 mg PO HS [facility] Last Admin: 12/12/16 21:02 Dose: 40 mg Bethanechol Chloride (Urecholine -) 25 mg PO TID [facility] Last Admin: 12/13/16 05:55 Dose: 25 mg Carvedilol (Coreg -) 6.25 mg PO BID [facility] Last Admin: 12/13/16 10:14 Dose: 6.25 mg Ferrous Sulfate (Feosol -) 325 mg PO DAILY [facility] Last Admin: 12/13/16 10:14 Dose: 325 mg Furosemide (Lasix -) 20 mg PO DAILY [facility] Last Admin: 12/13/16 10:14 Dose: 20 mg Guaifenesin/Codeine Phosphate (Robitussin Ac -) 5 ml PO Q8H PRN PRN Reason: COUGH Levofloxacin (Levaquin 250 Mg Premixed Ivpb -) 50 mls @ 50 mls/hr IVPB DAILY [facility] Last Admin: 12/13/16 10:15 Dose: 50 mls/hr Insulin Aspart (Novolog Vial Sliding Scale -) 1 vial SQ ACHS [facility] PRN Reason: Protocol Last Admin: 12/13/16 06:05 Dose: Not Given Levothyroxine Sodium (Synthroid -) 75 mcg PO ACBK [facility] Last Admin: 12/13/16 06:05 Dose: 75 mcg Magnesium Oxide (Mag-Ox -) 400 mg PO BID [facility] Last Admin: 12/13/16 10:14 Dose: 400 mg Ramipril (Altace -) 5 mg PO DAILY [facility] Last Admin: 12/13/16 10:14 Dose: 5 mg - Objective Vital Signs: Vital Signs Temperature 98.9 F 12/12/16 18:56 Pulse Rate 76 12/12/16 18:56 Respiratory Rate 18 12/12/16 18:56 Blood Pressure 133/57 12/12/16 18:56 O2 Sat by Pulse Oximetry (%) 98 12/12/16 21:00 Constitutional: Yes: No Distress, Calm Neck: Yes: Supple Cardiovascular: Yes: Regular Rate and Rhythm Respiratory: Yes: Regular, Diminished Gastrointestinal: Yes: Normal Bowel Sounds, Soft Edema: No Labs: CBC, BMP 12/13/16 06:40 12/13/16 06:40 INR, PTT INR 3.44 (0.82-1.09) H D 12/10/16 01:01 Problem List - Problems (1) UTI (urinary tract infection) Code(s): N39.0 - URINARY TRACT INFECTION, SITE NOT SPECIFIED Qualifiers: Urinary tract infection type: site unspecified Hematuria presence: with hematuria Qualified Code(s): N39.0 - Urinary tract infection, site not specified (2) Anemia Code(s): D64.9 - ANEMIA, UNSPECIFIED Qualifiers: Anemia type: unspecified type Qualified Code(s): D64.9 - Anemia, unspecified (3) Atrial fibrillation Code(s): I48.91 - UNSPECIFIED ATRIAL FIBRILLATION Qualifiers: Atrial fibrillation type: persistent Qualified Code(s): I48.1 - Persistent atrial fibrillation (4) CAD (coronary artery disease) Code(s): I25.10 - ATHSCL HEART DISEASE OF [place] CORONARY ARTERY W/O ANG PCTRS Qualifiers: Coronary Disease-Associated Artery/Lesion type: [place] artery [place] vs. transplanted heart: [place] heart Associated angina: without angina Qualified Code(s): I25.10 - Atherosclerotic heart disease of [place] coronary artery without angina pectoris (5) CHF (congestive heart failure) Code(s): I50.9 - HEART FAILURE, UNSPECIFIED Qualifiers: Congestive heart failure type: diastolic Congestive heart failure chronicity: chronic Qualified Code(s): I50.32 - Chronic diastolic ( congestive) heart failure (6) Hyperlipidemia Code(s): E78.5 - HYPERLIPIDEMIA, UNSPECIFIED Qualifiers: Hyperlipidemia type: pure hypercholesterolemia Qualified Code(s): E78.00 - Pure hypercholesterolemia, unspecified; E78.0 - Pure hypercholesterolemia (7) Hypertensive cardiomyopathy Code(s): I11.9 - HYPERTENSIVE HEART DISEASE WITHOUT HEART FAILURE I42.9 - CARDIOMYOPATHY, UNSPECIFIED Qualifiers: Heart failure presence: without heart failure Qualified Code(s): I11.9 - Hypertensive heart disease without heart failure; I43 - Cardiomyopathy in diseases classified elsewhere (8) Hypothyroidism Code(s): E03.9 - HYPOTHYROIDISM, UNSPECIFIED Qualifiers: Hypothyroidism type: unspecified Qualified Code(s): E03.9 - Hypothyroidism, unspecified Assessment/Plan 12/11/2016 Echo: Normal biventricular size and fxn, mod MELANIE, mod MR, mod-severe TR 1. Fevers, dyspnea referable to UTI resolving 2. Coronary artery disease angina pectoris 3. Diastolic left ventricular dysfunction with chronic class 0-I [employer] classification left ventricular failure 4. Permanent Atrial fibrillation [id number] score of 5 on chronic anticoagulation therapy with NOAC's 5. HTN 6. Hypercholesterolemia 7. Hypothyroidism 8. Acute on chronic kidney disease 9. Severe OA/DJD 10. History of spinal stenosis 11. Urinary retention 12. Anemia 13. H/o mechanical fall, chronically dislocated right shoulder currently with an acute, non-displaced proximal humerus fracture for conservative medical management PLAN: 1. Continue Apixaban (Eliquis) 2.5 mg PO BID 2. Continue Atorvastatin (Lipitor) 40 qhs 3. Continue Carvedilol (Coreg) 6.25 bid 4. Continue Ramipril (Altace) 5 qd 5. Continue Furosemide (Lasix) 20 qd 6. Complete abx course per C&S NGTD thus far 7. OOB to chair
--- NOTE | 2016-12-13 20:25 | PN ---
Progress Note, Physician History of Present Illness: Pt c/o cough, less per patient; confirmed with pt's nurse Pt w/o fever, chills, SOB, CP, palp, abd pain, dysuria. - Current Medication List Current Medications: Active Medications Acetaminophen (Tylenol -) 650 mg PO Q6H PRN PRN Reason: FEVER OR PAIN Acetaminophen (Tylenol -) 650 mg PO Q6H PRN PRN Reason: pain,fever Acetaminophen (Tylenol -) 325 mg PO Q12H PRN PRN Reason: SEVERE PAIN Albuterol Sulfate (Ventolin 0.083% Nebulizer Soln -) 1 amp NEB Q4H PRN PRN Reason: sob Apixaban (Eliquis -) 2.5 mg PO BID [facility] Last Admin: 12/13/16 10:15 Dose: 2.5 mg Atorvastatin Calcium (Lipitor -) 40 mg PO HS [facility] Last Admin: 12/12/16 21:02 Dose: 40 mg Bethanechol Chloride (Urecholine -) 25 mg PO TID [facility] Last Admin: 12/13/16 16:36 Dose: 25 mg Carvedilol (Coreg -) 6.25 mg PO BID [facility] Last Admin: 12/13/16 10:14 Dose: 6.25 mg Ferrous Sulfate (Feosol -) 325 mg PO DAILY [facility] Last Admin: 12/13/16 10:14 Dose: 325 mg Furosemide (Lasix -) 20 mg PO DAILY [facility] Last Admin: 12/13/16 10:14 Dose: 20 mg Guaifenesin/Codeine Phosphate (Robitussin Ac -) 5 ml PO Q8H PRN PRN Reason: COUGH Levofloxacin (Levaquin 250 Mg Premixed Ivpb -) 50 mls @ 50 mls/hr IVPB DAILY [facility] Last Admin: 12/13/16 10:15 Dose: 50 mls/hr Insulin Aspart (Novolog Vial Sliding Scale -) 1 vial SQ ACHS [facility] PRN Reason: Protocol Last Admin: 12/13/16 18:12 Dose: 2 units Levothyroxine Sodium (Synthroid -) 75 mcg PO ACBK [facility] Last Admin: 12/13/16 06:05 Dose: 75 mcg Magnesium Oxide (Mag-Ox -) 400 mg PO BID [facility] Last Admin: 12/13/16 10:14 Dose: 400 mg Ramipril (Altace -) 5 mg PO DAILY [facility] Last Admin: 12/13/16 10:14 Dose: 5 mg - Objective Vital Signs: Vital Signs Temperature 98.2 F 12/13/16 16:30 Pulse Rate 73 12/13/16 16:30 Respiratory Rate 18 12/13/16 16:30 Blood Pressure 144/61 12/13/16 16:30 O2 Sat by Pulse Oximetry (%) 98 12/12/16 21:00 Constitutional: Yes: No Distress, Calm Cardiovascular: Yes: Regular Rate and Rhythm, S1, S2 Respiratory: Yes: Regular, CTA Bilaterally Gastrointestinal: Yes: Normal Bowel Sounds, Soft. No: Tenderness Edema: No Neurological: Yes: Alert, Oriented (persone) Labs: CBC, BMP 12/13/16 06:40 12/13/16 06:40 INR, PTT INR 3.44 (0.82-1.09) H D 12/10/16 01:01 Problem List - Problems (1) UTI (urinary tract infection) Code(s): N39.0 - URINARY TRACT INFECTION, SITE NOT SPECIFIED Qualifiers: Urinary tract infection type: site unspecified Hematuria presence: with hematuria Qualified Code(s): N39.0 - Urinary tract infection, site not specified (2) Bandemia Code(s): D72.825 - BANDEMIA (3) CAD (coronary artery disease) Code(s): I25.10 - ATHSCL HEART DISEASE OF [place] CORONARY ARTERY W/O ANG PCTRS Qualifiers: Coronary Disease-Associated Artery/Lesion type: [place] artery [place] vs. transplanted heart: [place] heart Associated angina: without angina Qualified Code(s): I25.10 - Atherosclerotic heart disease of [place] coronary artery without angina pectoris (4) CHF (congestive heart failure) Code(s): I50.9 - HEART FAILURE, UNSPECIFIED Qualifiers: Congestive heart failure type: diastolic Congestive heart failure chronicity: chronic Qualified Code(s): I50.32 - Chronic diastolic ( congestive) heart failure (5) Anemia Code(s): D64.9 - ANEMIA, UNSPECIFIED Qualifiers: Anemia type: unspecified type Qualified Code(s): D64.9 - Anemia, unspecified (6) MDS (myelodysplastic syndrome) Code(s): D46.9 - MYELODYSPLASTIC SYNDROME, UNSPECIFIED (7) HTN (hypertension) Code(s): I10 - ESSENTIAL (PRIMARY) HYPERTENSION Assessment/Plan TO f/u BCX, UCX Cont. IV abtx. Cardio Consult appreciated Heme Consult appreciated Persistant cough; repeat CXR
[2016-12-13] MEDS: ATORVASTATIN CA 40 MG TABLET (FP) PO SCH (21:39)
[2016-12-13] MEDS: guaiFENesin/CODEINE 5 ML UNIT-DOSE CUPS PO PRN (21:52)
[2016-12-14] MEDS: BETHANECHOL CHLORIDE 25 MG TABLET PO SCH ×3 (06:09→21:23)
[2016-12-14] MEDS: LEVOTHYROXINE NA 75 MCG TABLET (FP) PO SCH (06:11)
[2016-12-14] MEDS: INSULIN SLIDING SCALE (NOVOLOG) 1 VIAL SQ SCH ×4 (06:34→21:27)
[2016-12-14] MEDS: RAMIPRIL 5 MG CAPSULE (FP) PO SCH (09:28)
[2016-12-14] MEDS: FERROUS SO4 325 MG TABLET (FP) PO SCH (09:28)
[2016-12-14] MEDS: CARVEDILOL 6.25 MG TABLET (FP) PO SCH ×2 (09:28→21:23)
[2016-12-14] MEDS: FUROSEMIDE 20 MG TABLET (FP) PO SCH (09:28)
[2016-12-14] MEDS: MAGNESIUM OXIDE 400 MG TABLET (FP) PO SCH ×2 (09:28→21:24)
[2016-12-14] MEDS: LEVOFLOXACIN 250 MG IVPB 50 ML IVPB SCH (09:29)
[2016-12-14] MEDS: guaiFENesin/CODEINE 5 ML UNIT-DOSE CUPS PO PRN (09:29)
[2016-12-14] MEDS ORDERED: PT OWN MED DRAWER 7, Y5N ONE (09:38)
[2016-12-14] MEDS: APIXABAN 2.5 MG TABLET PO SCH ×2 (09:56→21:23)
[2016-12-14] MEDS ORDERED: FUROSEMIDE 40 MG/4 ML INJECTABLE VIAL IVPB ONE (14:04)
--- NOTE | 2016-12-14 14:10 | PN ---
Progress Note, Physician History of Present Illness: Pt c/o cough, confirmed with pt's nurse Pt w/o fever, chills, SOB, CP, palp, abd pain, dysuria. Pt with COY - Current Medication List Current Medications: Active Medications Acetaminophen (Tylenol -) 650 mg PO Q6H PRN PRN Reason: FEVER OR PAIN Acetaminophen (Tylenol -) 650 mg PO Q6H PRN PRN Reason: pain,fever Acetaminophen (Tylenol -) 325 mg PO Q12H PRN PRN Reason: SEVERE PAIN Albuterol Sulfate (Ventolin 0.083% Nebulizer Soln -) 1 amp NEB Q4H PRN PRN Reason: sob Apixaban (Eliquis -) 2.5 mg PO BID [facility] Last Admin: 12/14/16 09:56 Dose: 2.5 mg Atorvastatin Calcium (Lipitor -) 40 mg PO HS [facility] Last Admin: 12/13/16 21:39 Dose: 40 mg Bethanechol Chloride (Urecholine -) 25 mg PO TID [facility] Last Admin: 12/14/16 06:09 Dose: 25 mg Carvedilol (Coreg -) 6.25 mg PO BID [facility] Last Admin: 12/14/16 09:28 Dose: 6.25 mg Ferrous Sulfate (Feosol -) 325 mg PO DAILY [facility] Last Admin: 12/14/16 09:28 Dose: 325 mg Furosemide (Lasix -) 20 mg PO DAILY [facility] Last Admin: 12/14/16 09:28 Dose: 20 mg Furosemide (Lasix Injection -) 20 mg IVPB ONCE ONE Stop: 12/14/16 14:05 Guaifenesin/Codeine Phosphate (Robitussin Ac -) 5 ml PO Q8H PRN PRN Reason: COUGH Last Admin: 12/14/16 09:29 Dose: 5 ml Levofloxacin (Levaquin 250 Mg Premixed Ivpb -) 50 mls @ 50 mls/hr IVPB DAILY [facility] Last Admin: 12/14/16 09:29 Dose: 50 mls/hr Insulin Aspart (Novolog Vial Sliding Scale -) 1 vial SQ ACHS [facility] PRN Reason: Protocol Last Admin: 12/14/16 12:35 Dose: Not Given Levothyroxine Sodium (Synthroid -) 75 mcg PO ACBK [facility] Last Admin: 12/14/16 06:11 Dose: 75 mcg Magnesium Oxide (Mag-Ox -) 400 mg PO BID [facility] Last Admin: 12/14/16 09:28 Dose: 400 mg Ramipril (Altace -) 5 mg PO DAILY [facility] Last Admin: 12/14/16 09:28 Dose: 5 mg - Objective Vital Signs: Vital Signs Temperature 98.3 F 12/14/16 06:00 Pulse Rate 58 L 12/14/16 06:00 Respiratory Rate 18 12/14/16 06:00 Blood Pressure 134/60 12/14/16 06:00 O2 Sat by Pulse Oximetry (%) 98 12/12/16 21:00 Constitutional: Yes: No Distress, Calm Cardiovascular: Yes: Regular Rate and Rhythm, S1, S2 Respiratory: Yes: Regular, Rales (scattered) Gastrointestinal: Yes: Normal Bowel Sounds, Soft. No: Tenderness Edema: No Neurological: Yes: Alert, Oriented (person, place) Labs: CBC, BMP 12/13/16 06:40 12/13/16 06:40 INR, PTT INR 3.44 (0.82-1.09) H D 12/10/16 01:01 - ....Imaging Chest X-ray: Report Reviewed, Image Reviewed Problem List - Problems (1) UTI (urinary tract infection) Code(s): N39.0 - URINARY TRACT INFECTION, SITE NOT SPECIFIED Qualifiers: Urinary tract infection type: site unspecified Hematuria presence: with hematuria Qualified Code(s): N39.0 - Urinary tract infection, site not specified (2) Bandemia Code(s): D72.825 - BANDEMIA (3) CAD (coronary artery disease) Code(s): I25.10 - ATHSCL HEART DISEASE OF [place] CORONARY ARTERY W/O ANG PCTRS Qualifiers: Coronary Disease-Associated Artery/Lesion type: [place] artery [place] vs. transplanted heart: [place] heart Associated angina: without angina Qualified Code(s): I25.10 - Atherosclerotic heart disease of [place] coronary artery without angina pectoris (4) CHF (congestive heart failure) Code(s): I50.9 - HEART FAILURE, UNSPECIFIED Qualifiers: Congestive heart failure type: diastolic Congestive heart failure chronicity: chronic Qualified Code(s): I50.32 - Chronic diastolic ( congestive) heart failure (5) Anemia Code(s): D64.9 - ANEMIA, UNSPECIFIED Qualifiers: Anemia type: unspecified type Qualified Code(s): D64.9 - Anemia, unspecified (6) MDS (myelodysplastic syndrome) Code(s): D46.9 - MYELODYSPLASTIC SYNDROME, UNSPECIFIED (7) HTN (hypertension) Code(s): I10 - ESSENTIAL (PRIMARY) HYPERTENSION (8) Pleural effusion Code(s): J90 - PLEURAL EFFUSION, NOT ELSEWHERE CLASSIFIED Assessment/Plan TO f/u BCX, UCX Cont. IV abtx. Cardio Consult appreciated Heme Consult appreciated Persistant cough; repeated CXR c/w increased congestion, Check BNP. Lasix 20 mg IVP; repeat CXR in AM
[2016-12-14 18:30] LABS: ANION GAP 5 (8-16); CALCIUM 8.3 mg/dL (8.5-10.1); CO2 28 mmol/L (21-32); CREATININE 1.2 mg/dL (0.55-1.02); GLUCOSE,RANDOM 118 mg/dL (74-106)
[2016-12-14] MEDS: ATORVASTATIN CA 40 MG TABLET (FP) PO SCH (21:23)
[2016-12-15] MEDS: BETHANECHOL CHLORIDE 25 MG TABLET PO SCH ×3 (05:50→21:08)
[2016-12-15] MEDS: INSULIN SLIDING SCALE (NOVOLOG) 1 VIAL SQ SCH ×4 (06:30→21:36)
[2016-12-15] MEDS: LEVOTHYROXINE NA 75 MCG TABLET (FP) PO SCH (06:30)
[2016-12-15] MEDS ORDERED: PT OWN MED DRAWER 7, Y5N ONE (09:20)
[2016-12-15] MEDS: FERROUS SO4 325 MG TABLET (FP) PO SCH (09:21)
[2016-12-15] MEDS: APIXABAN 2.5 MG TABLET PO SCH ×2 (09:21→21:35)
[2016-12-15] MEDS: RAMIPRIL 5 MG CAPSULE (FP) PO SCH (09:21)
[2016-12-15] MEDS: CARVEDILOL 6.25 MG TABLET (FP) PO SCH ×2 (09:21→21:08)
[2016-12-15] MEDS: FUROSEMIDE 20 MG TABLET (FP) PO SCH (09:22)
[2016-12-15] MEDS: MAGNESIUM OXIDE 400 MG TABLET (FP) PO SCH ×2 (09:22→21:08)
[2016-12-15] MEDS: LEVOFLOXACIN 250 MG IVPB 50 ML IVPB SCH (09:22)
--- NOTE | 2016-12-15 11:20 | PN ---
Progress Note, Physician History of Present Illness: Remains afebrile. Dyspnea and cough improved with diuresis, CXR showed increased congestion. - Current Medication List Current Medications: Active Medications Acetaminophen (Tylenol -) 650 mg PO Q6H PRN PRN Reason: FEVER OR PAIN Acetaminophen (Tylenol -) 650 mg PO Q6H PRN PRN Reason: pain,fever Acetaminophen (Tylenol -) 325 mg PO Q12H PRN PRN Reason: SEVERE PAIN Albuterol Sulfate (Ventolin 0.083% Nebulizer Soln -) 1 amp NEB Q4H PRN PRN Reason: sob Apixaban (Eliquis -) 2.5 mg PO BID [facility] Last Admin: 12/15/16 09:21 Dose: 2.5 mg Atorvastatin Calcium (Lipitor -) 40 mg PO HS [facility] Last Admin: 12/14/16 21:23 Dose: 40 mg Bethanechol Chloride (Urecholine -) 25 mg PO TID [facility] Last Admin: 12/15/16 05:50 Dose: 25 mg Carvedilol (Coreg -) 6.25 mg PO BID [facility] Last Admin: 12/15/16 09:21 Dose: 6.25 mg Ferrous Sulfate (Feosol -) 325 mg PO DAILY [facility] Last Admin: 12/15/16 09:21 Dose: 325 mg Furosemide (Lasix -) 20 mg PO DAILY [facility] Last Admin: 12/15/16 09:22 Dose: 20 mg Guaifenesin/Codeine Phosphate (Robitussin Ac -) 5 ml PO Q8H PRN PRN Reason: COUGH Last Admin: 12/14/16 09:29 Dose: 5 ml Levofloxacin (Levaquin 250 Mg Premixed Ivpb -) 50 mls @ 50 mls/hr IVPB DAILY [facility] Last Admin: 12/15/16 09:22 Dose: 50 mls/hr Insulin Aspart (Novolog Vial Sliding Scale -) 1 vial SQ ACHS [facility] PRN Reason: Protocol Last Admin: 12/15/16 06:30 Dose: Not Given Levothyroxine Sodium (Synthroid -) 75 mcg PO ACBK [facility] Last Admin: 12/15/16 06:30 Dose: 75 mcg Magnesium Oxide (Mag-Ox -) 400 mg PO BID [facility] Last Admin: 12/15/16 09:22 Dose: 400 mg Ramipril (Altace -) 5 mg PO DAILY [facility] Last Admin: 12/15/16 09:21 Dose: 5 mg - Objective Vital Signs: Vital Signs Temperature 98.6 F 12/15/16 09:16 Pulse Rate 64 12/15/16 09:16 Respiratory Rate 18 12/15/16 09:16 Blood Pressure 136/65 12/15/16 09:16 O2 Sat by Pulse Oximetry (%) 97 12/14/16 21:00 Constitutional: Yes: No Distress, Calm Neck: Yes: Supple Cardiovascular: Yes: Regular Rate and Rhythm, Murmur (2/6 SM) Respiratory: Yes: Regular, Diminished Gastrointestinal: Yes: Normal Bowel Sounds, Soft Edema: No Labs: CBC, BMP 12/13/16 06:40 12/14/16 17:10 INR, PTT INR 3.44 (0.82-1.09) H D 12/10/16 01:01 Problem List - Problems (1) UTI (urinary tract infection) Code(s): N39.0 - URINARY TRACT INFECTION, SITE NOT SPECIFIED Qualifiers: Urinary tract infection type: site unspecified Hematuria presence: with hematuria Qualified Code(s): N39.0 - Urinary tract infection, site not specified (2) Anemia Code(s): D64.9 - ANEMIA, UNSPECIFIED Qualifiers: Anemia type: unspecified type Qualified Code(s): D64.9 - Anemia, unspecified (3) Atrial fibrillation Code(s): I48.91 - UNSPECIFIED ATRIAL FIBRILLATION Qualifiers: Atrial fibrillation type: persistent Qualified Code(s): I48.1 - Persistent atrial fibrillation (4) CAD (coronary artery disease) Code(s): I25.10 - ATHSCL HEART DISEASE OF [place] CORONARY ARTERY W/O ANG PCTRS Qualifiers: Coronary Disease-Associated Artery/Lesion type: [place] artery [place] vs. transplanted heart: [place] heart Associated angina: without angina Qualified Code(s): I25.10 - Atherosclerotic heart disease of [place] coronary artery without angina pectoris (5) CHF (congestive heart failure) Code(s): I50.9 - HEART FAILURE, UNSPECIFIED Qualifiers: Congestive heart failure type: diastolic Congestive heart failure chronicity: chronic Qualified Code(s): I50.32 - Chronic diastolic ( congestive) heart failure (6) Hyperlipidemia Code(s): E78.5 - HYPERLIPIDEMIA, UNSPECIFIED Qualifiers: Hyperlipidemia type: pure hypercholesterolemia Qualified Code(s): E78.00 - Pure hypercholesterolemia, unspecified; E78.0 - Pure hypercholesterolemia (7) Hypertensive cardiomyopathy Code(s): I11.9 - HYPERTENSIVE HEART DISEASE WITHOUT HEART FAILURE I42.9 - CARDIOMYOPATHY, UNSPECIFIED Qualifiers: Heart failure presence: without heart failure Qualified Code(s): I11.9 - Hypertensive heart disease without heart failure; I43 - Cardiomyopathy in diseases classified elsewhere (8) Hypothyroidism Code(s): E03.9 - HYPOTHYROIDISM, UNSPECIFIED Qualifiers: Hypothyroidism type: unspecified Qualified Code(s): E03.9 - Hypothyroidism, unspecified Assessment/Plan 12/11/2016 Echo: Normal biventricular size and fxn, mod MELANIE, mod MR, mod-severe TR 1. Fevers, dyspnea referable to UTI resolving 2. Coronary artery disease angina pectoris 3. Acute on chronic diastolic left ventricular failure 4. Permanent Atrial fibrillation [id number] score of 5 on chronic anticoagulation therapy with NOAC's 5. HTN 6. Hypercholesterolemia 7. Hypothyroidism 8. Acute on chronic kidney disease 9. Severe OA/DJD 10. History of spinal stenosis 11. Urinary retention 12. Anemia 13. H/o mechanical fall, chronically dislocated right shoulder currently with an acute, non-displaced proximal humerus fracture for conservative medical management PLAN: 1. Continue Apixaban (Eliquis) 2.5 mg PO BID 2. Continue Atorvastatin (Lipitor) 40 qhs 3. Continue Carvedilol (Coreg) 6.25 bid 4. Continue Ramipril (Altace) 5 qd 5. Continue Furosemide (Lasix) with monitor diuretic response, renal fxn and electrolytes 6. Complete abx course per C&S NGTD thus far 7. OOB to chair
--- NOTE | 2016-12-15 13:47 | PN ---
Progress Note, Physician History of Present Illness: Pt c/o cough, bringing up yellowish sputum; confirmed with pt's nurse Pt w/o fever, chills, SOB, CP, palp, abd pain, dysuria. Pt w/o BM X 2 days - Current Medication List Current Medications: Active Medications Acetaminophen (Tylenol -) 650 mg PO Q6H PRN PRN Reason: FEVER OR PAIN Acetaminophen (Tylenol -) 650 mg PO Q6H PRN PRN Reason: pain,fever Acetaminophen (Tylenol -) 325 mg PO Q12H PRN PRN Reason: SEVERE PAIN Albuterol Sulfate (Ventolin 0.083% Nebulizer Soln -) 1 amp NEB Q4H PRN PRN Reason: sob Apixaban (Eliquis -) 2.5 mg PO BID [facility] Last Admin: 12/15/16 09:21 Dose: 2.5 mg Atorvastatin Calcium (Lipitor -) 40 mg PO HS [facility] Last Admin: 12/14/16 21:23 Dose: 40 mg Bethanechol Chloride (Urecholine -) 25 mg PO TID [facility] Last Admin: 12/15/16 05:50 Dose: 25 mg Carvedilol (Coreg -) 6.25 mg PO BID [facility] Last Admin: 12/15/16 09:21 Dose: 6.25 mg Ferrous Sulfate (Feosol -) 325 mg PO DAILY [facility] Last Admin: 12/15/16 09:21 Dose: 325 mg Furosemide (Lasix -) 20 mg PO DAILY [facility] Last Admin: 12/15/16 09:22 Dose: 20 mg Furosemide (Lasix Injection -) 20 mg IVPB ONCE ONE Stop: 12/15/16 15:01 Guaifenesin/Codeine Phosphate (Robitussin Ac -) 5 ml PO Q8H PRN PRN Reason: COUGH Last Admin: 12/14/16 09:29 Dose: 5 ml Levofloxacin (Levaquin 250 Mg Premixed Ivpb -) 50 mls @ 50 mls/hr IVPB DAILY [facility] Last Admin: 12/15/16 09:22 Dose: 50 mls/hr Insulin Aspart (Novolog Vial Sliding Scale -) 1 vial SQ ACHS [facility] PRN Reason: Protocol Last Admin: 12/15/16 11:46 Dose: Not Given Levothyroxine Sodium (Synthroid -) 75 mcg PO ACBK [facility] Last Admin: 12/15/16 06:30 Dose: 75 mcg Magnesium Oxide (Mag-Ox -) 400 mg PO BID [facility] Last Admin: 12/15/16 09:22 Dose: 400 mg Ramipril (Altace -) 5 mg PO DAILY [facility] Last Admin: 12/15/16 09:21 Dose: 5 mg - Objective Vital Signs: Vital Signs Temperature 98.6 F 12/15/16 09:16 Pulse Rate 68 12/15/16 11:18 Respiratory Rate 18 12/15/16 09:16 Blood Pressure 136/65 12/15/16 09:16 O2 Sat by Pulse Oximetry (%) 98 12/15/16 11:18 Constitutional: Yes: No Distress, Calm Cardiovascular: Yes: S1, S2 Respiratory: Yes: Regular, Other (crackles at bases) Gastrointestinal: Yes: Normal Bowel Sounds, Soft. No: Palpable Mass, Tenderness Edema: No Neurological: Yes: Alert, Oriented Labs: CBC, BMP 12/13/16 06:40 12/14/16 17:10 INR, PTT INR 3.44 (0.82-1.09) H D 12/10/16 01:01 Problem List - Problems (1) UTI (urinary tract infection) Code(s): N39.0 - URINARY TRACT INFECTION, SITE NOT SPECIFIED Qualifiers: Urinary tract infection type: site unspecified Hematuria presence: with hematuria Qualified Code(s): N39.0 - Urinary tract infection, site not specified (2) Bandemia Code(s): D72.825 - BANDEMIA (3) CAD (coronary artery disease) Code(s): I25.10 - ATHSCL HEART DISEASE OF [place] CORONARY ARTERY W/O ANG PCTRS Qualifiers: Coronary Disease-Associated Artery/Lesion type: [place] artery [place] vs. transplanted heart: [place] heart Associated angina: without angina Qualified Code(s): I25.10 - Atherosclerotic heart disease of [place] coronary artery without angina pectoris (4) CHF (congestive heart failure) Code(s): I50.9 - HEART FAILURE, UNSPECIFIED Qualifiers: Congestive heart failure type: diastolic Congestive heart failure chronicity: chronic Qualified Code(s): I50.32 - Chronic diastolic ( congestive) heart failure (5) Anemia Code(s): D64.9 - ANEMIA, UNSPECIFIED Qualifiers: Anemia type: unspecified type Qualified Code(s): D64.9 - Anemia, unspecified (6) MDS (myelodysplastic syndrome) Code(s): D46.9 - MYELODYSPLASTIC SYNDROME, UNSPECIFIED (7) HTN (hypertension) Code(s): I10 - ESSENTIAL (PRIMARY) HYPERTENSION (8) Pleural effusion Code(s): J90 - PLEURAL EFFUSION, NOT ELSEWHERE CLASSIFIED Assessment/Plan BCX, UCX negative Cont. IV abtx. Cardio Consult appreciated Heme Consult appreciated Persistant cough; repeated CXR c/w increased congestion. Lasix 20 mg IVP; repeat CXR in AM
[2016-12-15] MEDS ORDERED: POLYETHYLENE GLYCOL 3350 119 GM BTL PO ONE (14:23)
[2016-12-15] MEDS ORDERED: DOCUSATE SODIUM 100 MG CAPSULE (FP) PO PRN (14:23)
[2016-12-15] MEDS ORDERED: FUROSEMIDE 40 MG/4 ML INJECTABLE VIAL IVPB ONE (15:00)
[2016-12-15] MEDS ORDERED: SENNOSIDES 8.6MG TABLET (FP) PO ONE (21:00)
[2016-12-15] MEDS: ATORVASTATIN CA 40 MG TABLET (FP) PO SCH (21:08)
[2016-12-16] MEDS: BETHANECHOL CHLORIDE 25 MG TABLET PO SCH ×3 (05:33→22:39)
[2016-12-16] MEDS: INSULIN SLIDING SCALE (NOVOLOG) 1 VIAL SQ SCH ×4 (06:06→22:39)
[2016-12-16] MEDS: LEVOTHYROXINE NA 75 MCG TABLET (FP) PO SCH (06:07)
[2016-12-16 07:57] LABS: MCH 30.3 pg (25.7-33.7); MCHC 33.5 g/dl (32.0-36.0); MEAN CELL VOLUME 90.6 fl (80-96); MEAN PLT VOLUME 6.7 fl (7.5-11.1); PLATELET COUNT 383 K/MM3 (134-434); RDW 18.1 % (11.6-15.6); WHITE BLOOD COUNT 7.7 K/mm3 (4.0-10.0)
[2016-12-16 08:48] LABS: ANION GAP 7 (8-16); CALCIUM 8.1 mg/dL (8.5-10.1); CO2 31 mmol/L (21-32); CREATININE 1.1 mg/dL (0.55-1.02); GLUCOSE,RANDOM 91 mg/dL (74-106)
[2016-12-16] MEDS: FUROSEMIDE 20 MG TABLET (FP) PO SCH (10:39)
[2016-12-16] MEDS: CARVEDILOL 6.25 MG TABLET (FP) PO SCH ×2 (10:39→22:39)
[2016-12-16] MEDS: LEVOFLOXACIN 250 MG IVPB 50 ML IVPB SCH (10:39)
[2016-12-16] MEDS: RAMIPRIL 5 MG CAPSULE (FP) PO SCH (10:39)
[2016-12-16] MEDS: MAGNESIUM OXIDE 400 MG TABLET (FP) PO SCH ×2 (10:39→22:39)
[2016-12-16] MEDS: FERROUS SO4 325 MG TABLET (FP) PO SCH (10:39)
[2016-12-16] MEDS ORDERED: PT OWN MED DRAWER 7, Y5N ONE ×2 (10:41→22:03)
[2016-12-16] MEDS: APIXABAN 2.5 MG TABLET PO SCH ×2 (10:42→22:39)
--- NOTE | 2016-12-16 10:57 | PN ---
Progress Note, Physician Chief Complaint: Not in distress this am History of Present Illness: Patient was seen and examined. Awake and alert. Sitting in chair. Chart was reviewed Denies chest pain or palpitations. Less SOB CXR shows bilateral pleural effusion R>L - Current Medication List Current Medications: Active Medications Acetaminophen (Tylenol -) 650 mg PO Q6H PRN PRN Reason: pain,fever Albuterol Sulfate (Ventolin 0.083% Nebulizer Soln -) 1 amp NEB Q4H PRN PRN Reason: sob Apixaban (Eliquis -) 2.5 mg PO BID [facility] Last Admin: 12/16/16 10:42 Dose: 2.5 mg Atorvastatin Calcium (Lipitor -) 40 mg PO HS [facility] Last Admin: 12/15/16 21:08 Dose: 40 mg Bethanechol Chloride (Urecholine -) 25 mg PO TID [facility] Last Admin: 12/16/16 05:33 Dose: 25 mg Carvedilol (Coreg -) 6.25 mg PO BID [facility] Last Admin: 12/16/16 10:39 Dose: 6.25 mg Docusate Sodium (Colace -) 100 mg PO BID PRN PRN Reason: CONSTIPATION Ferrous Sulfate (Feosol -) 325 mg PO DAILY [facility] Last Admin: 12/16/16 10:39 Dose: 325 mg Furosemide (Lasix -) 20 mg PO DAILY [facility] Last Admin: 12/16/16 10:39 Dose: 20 mg Guaifenesin/Codeine Phosphate (Robitussin Ac -) 5 ml PO Q8H PRN PRN Reason: COUGH Last Admin: 12/14/16 09:29 Dose: 5 ml Levofloxacin (Levaquin 250 Mg Premixed Ivpb -) 50 mls @ 50 mls/hr IVPB DAILY [facility] Last Admin: 12/16/16 10:39 Dose: 50 mls/hr Insulin Aspart (Novolog Vial Sliding Scale -) 1 vial SQ ACHS [facility] PRN Reason: Protocol Last Admin: 12/16/16 06:06 Dose: Not Given Levothyroxine Sodium (Synthroid -) 75 mcg PO ACBK [facility] Last Admin: 12/16/16 06:07 Dose: 75 mcg Magnesium Oxide (Mag-Ox -) 400 mg PO BID [facility] Last Admin: 12/16/16 10:39 Dose: 400 mg Ramipril (Altace -) 5 mg PO DAILY [facility] Last Admin: 12/16/16 10:39 Dose: 5 mg - Objective Vital Signs: Vital Signs Temperature 98.2 F 12/16/16 06:00 Pulse Rate 72 12/16/16 06:00 Respiratory Rate 18 12/16/16 06:00 Blood Pressure 146/54 12/16/16 06:00 O2 Sat by Pulse Oximetry (%) 98 12/15/16 21:00 Neck: Yes: Supple Cardiovascular: Yes: Regular Rate and Rhythm, Murmur (2/6 SM), S1, S2 Respiratory: Yes: Diminished Gastrointestinal: Yes: Normal Bowel Sounds, Soft. No: Tenderness Edema: No Labs: CBC, BMP 12/16/16 06:10 12/16/16 06:10 Problem List - Problems (1) HTN (hypertension) Code(s): I10 - ESSENTIAL (PRIMARY) HYPERTENSION Qualifiers: Hypertension type: essential hypertension Qualified Code(s): I10 - Essential (primary) hypertension (2) Pleural effusion Code(s): J90 - PLEURAL EFFUSION, NOT ELSEWHERE CLASSIFIED (3) Sepsis Code(s): A41.9 - SEPSIS, UNSPECIFIED ORGANISM Qualifiers: Sepsis type: sepsis due to unspecified organism Qualified Code(s): A41.9 - Sepsis, unspecified organism (4) UTI (urinary tract infection) Code(s): N39.0 - URINARY TRACT INFECTION, SITE NOT SPECIFIED Qualifiers: Urinary tract infection type: site unspecified Hematuria presence: with hematuria Qualified Code(s): N39.0 - Urinary tract infection, site not specified (5) Anemia Code(s): D64.9 - ANEMIA, UNSPECIFIED Qualifiers: Anemia type: unspecified type Qualified Code(s): D64.9 - Anemia, unspecified (6) Atrial fibrillation Code(s): I48.91 - UNSPECIFIED ATRIAL FIBRILLATION Qualifiers: Atrial fibrillation type: persistent Qualified Code(s): I48.1 - Persistent atrial fibrillation (7) CAD (coronary artery disease) Code(s): I25.10 - ATHSCL HEART DISEASE OF [place] CORONARY ARTERY W/O ANG PCTRS Qualifiers: Coronary Disease-Associated Artery/Lesion type: [place] artery [place] vs. transplanted heart: [place] heart Associated angina: without angina Qualified Code(s): I25.10 - Atherosclerotic heart disease of [place] coronary artery without angina pectoris (8) Hyperlipidemia Code(s): E78.5 - HYPERLIPIDEMIA, UNSPECIFIED Qualifiers: Hyperlipidemia type: pure hypercholesterolemia Qualified Code(s): E78.00 - Pure hypercholesterolemia, unspecified; E78.0 - Pure hypercholesterolemia (9) Hypothyroidism Code(s): E03.9 - HYPOTHYROIDISM, UNSPECIFIED Qualifiers: Hypothyroidism type: unspecified Qualified Code(s): E03.9 - Hypothyroidism, unspecified (10) Shoulder fracture, right Code(s): S42.91XA - FRACTURE OF RIGHT SHOULDER GIRDLE, PART UNSP, INIT Qualifiers: Encounter type: initial encounter Fracture type: closed Qualified Code(s): S42.91XA - Fracture of right shoulder girdle, part unspecified, initial encounter for closed fracture Assessment/Plan 1. Fevers referable to UTI - resolving 2. Coronary artery disease, angina pectoris 3. Acute on chronic diastolic left ventricular failure - bilateral pleural effusion with dyspnea 4. Permanent Atrial fibrillation [id number] score of 5 on chronic anticoagulation therapy with NOAC 5. HTN 6. Hypercholesterolemia 7. Hypothyroidism 8. Acute on chronic kidney disease 9. Severe OA/DJD 10. History of spinal stenosis 11. Urinary retention 12. Anemia 13. History of mechanical fall, chronically dislocated right shoulder, non- displaced proximal humerus fracture for conservative medical management PLAN: 1. Continue Apixaban 2.5 mg PO BID 2. Continue Atorvastatin 3. Continue Carvedilol and Ramipril 4. Continue Furosemide with monitoring renal function and electrolytes 5. Complete antibiotic course Further plans are to follow Michael Davila MD
[2016-12-16] MEDS ORDERED: FUROSEMIDE 40 MG/4 ML INJECTABLE VIAL IVPUSH ONE (19:57)
[2016-12-16] MEDS ORDERED: FUROSEMIDE 20 MG TABLET (FP) PO SCH (19:58)
--- NOTE | 2016-12-16 20:01 | PN ---
Progress Note, Physician History of Present Illness: Pt c/o cough, bringing up sputum; confirmed with pt's nurse Pt w/o fever, chills, SOB, CP, palp, abd pain, dysuria. - Current Medication List Current Medications: Active Medications Acetaminophen (Tylenol -) 650 mg PO Q6H PRN PRN Reason: pain,fever Albuterol Sulfate (Ventolin 0.083% Nebulizer Soln -) 1 amp NEB Q4H PRN PRN Reason: sob Apixaban (Eliquis -) 2.5 mg PO BID [facility] Last Admin: 12/16/16 10:42 Dose: 2.5 mg Atorvastatin Calcium (Lipitor -) 40 mg PO HS [facility] Last Admin: 12/15/16 21:08 Dose: 40 mg Bethanechol Chloride (Urecholine -) 25 mg PO TID [facility] Last Admin: 12/16/16 15:27 Dose: 25 mg Carvedilol (Coreg -) 6.25 mg PO BID [facility] Last Admin: 12/16/16 10:39 Dose: 6.25 mg Docusate Sodium (Colace -) 100 mg PO BID PRN PRN Reason: CONSTIPATION Ferrous Sulfate (Feosol -) 325 mg PO DAILY [facility] Last Admin: 12/16/16 10:39 Dose: 325 mg Furosemide (Lasix Injection -) 20 mg IVPUSH ONCE ONE Stop: 12/16/16 19:58 Furosemide (Lasix -) 40 mg PO DAILY [facility] Guaifenesin/Codeine Phosphate (Robitussin Ac -) 5 ml PO Q8H PRN PRN Reason: COUGH Last Admin: 12/14/16 09:29 Dose: 5 ml Levofloxacin (Levaquin 250 Mg Premixed Ivpb -) 50 mls @ 50 mls/hr IVPB DAILY [facility] Last Admin: 12/16/16 10:39 Dose: 50 mls/hr Insulin Aspart (Novolog Vial Sliding Scale -) 1 vial SQ ACHS [facility] PRN Reason: Protocol Last Admin: 12/16/16 18:02 Dose: Not Given Levothyroxine Sodium (Synthroid -) 75 mcg PO ACBK [facility] Last Admin: 12/16/16 06:07 Dose: 75 mcg Magnesium Oxide (Mag-Ox -) 400 mg PO BID [facility] Last Admin: 12/16/16 10:39 Dose: 400 mg Ramipril (Altace -) 5 mg PO DAILY [facility] Last Admin: 12/16/16 10:39 Dose: 5 mg - Objective Vital Signs: Vital Signs Temperature 98.5 F 12/16/16 16:45 Pulse Rate 68 12/16/16 16:45 Respiratory Rate 20 12/16/16 16:45 Blood Pressure 149/62 12/16/16 16:45 O2 Sat by Pulse Oximetry (%) 98 12/16/16 11:34 Constitutional: Yes: No Distress, Calm Cardiovascular: Yes: Regular Rate and Rhythm, S1, S2 Respiratory: Yes: Regular, Other (coarse at bases, crackles at bases) Gastrointestinal: Yes: Normal Bowel Sounds, Soft. No: Tenderness Edema: No Neurological: Yes: Alert, Oriented (person, place) Labs: CBC, BMP 12/16/16 06:10 12/16/16 06:10 INR, PTT INR 3.44 (0.82-1.09) H D 12/10/16 01:01 Problem List - Problems (1) UTI (urinary tract infection) Code(s): N39.0 - URINARY TRACT INFECTION, SITE NOT SPECIFIED Qualifiers: Urinary tract infection type: site unspecified Hematuria presence: with hematuria Qualified Code(s): N39.0 - Urinary tract infection, site not specified (2) Bandemia Code(s): D72.825 - BANDEMIA (3) CAD (coronary artery disease) Code(s): I25.10 - ATHSCL HEART DISEASE OF [place] CORONARY ARTERY W/O ANG PCTRS Qualifiers: Coronary Disease-Associated Artery/Lesion type: [place] artery [place] vs. transplanted heart: [place] heart Associated angina: without angina Qualified Code(s): I25.10 - Atherosclerotic heart disease of [place] coronary artery without angina pectoris (4) CHF (congestive heart failure) Code(s): I50.9 - HEART FAILURE, UNSPECIFIED Qualifiers: Congestive heart failure type: diastolic Congestive heart failure chronicity: chronic Qualified Code(s): I50.32 - Chronic diastolic ( congestive) heart failure (5) Anemia Code(s): D64.9 - ANEMIA, UNSPECIFIED Qualifiers: Anemia type: unspecified type Qualified Code(s): D64.9 - Anemia, unspecified (6) MDS (myelodysplastic syndrome) Code(s): D46.9 - MYELODYSPLASTIC SYNDROME, UNSPECIFIED (7) HTN (hypertension) Code(s): I10 - ESSENTIAL (PRIMARY) HYPERTENSION Qualifiers: Hypertension type: essential hypertension Qualified Code(s): I10 - Essential (primary) hypertension (8) Pleural effusion Code(s): J90 - PLEURAL EFFUSION, NOT ELSEWHERE CLASSIFIED (9) Acute on chronic diastolic (congestive) heart failure Assessment/Plan: IV lasix To increase PO Lasix Monitor electrolytes Code(s): I50.33 - ACUTE ON CHRONIC DIASTOLIC (CONGESTIVE) HEART FAILURE
[2016-12-16] MEDS ORDERED: FUROSEMIDE 40 MG/4 ML INJECTABLE VIAL ONE (22:02)
[2016-12-16] MEDS: ATORVASTATIN CA 40 MG TABLET (FP) PO SCH (22:39)
[2016-12-17] MEDS: INSULIN SLIDING SCALE (NOVOLOG) 1 VIAL SQ SCH ×3 (06:44→17:18)
[2016-12-17] MEDS: BETHANECHOL CHLORIDE 25 MG TABLET PO SCH ×2 (06:45→15:18)
[2016-12-17] MEDS: LEVOTHYROXINE NA 75 MCG TABLET (FP) PO SCH (06:45)
[2016-12-17 08:12] LABS: ANION GAP 8 (8-16); CALCIUM 8.2 mg/dL (8.5-10.1); CO2 29 mmol/L (21-32); GLUCOSE,RANDOM 94 mg/dL (74-106)
[2016-12-17 08:13] LABS: CREATININE 1.2 mg/dL (0.55-1.02)
--- NOTE | 2016-12-17 10:33 | DS ---
Physical Examination Vital Signs: Vital Signs Temperature 98.4 F 12/17/16 07:01 Pulse Rate 80 12/17/16 07:01 Respiratory Rate 20 12/17/16 07:01 Blood Pressure 149/59 12/17/16 07:01 O2 Sat by Pulse Oximetry (%) 98 12/16/16 21:00 Findings/Remarks: Pt's cough is better (less, no sputum). Pt w/o SOB, CP, palp, abd pain, N, V, dysuria Constitutional: Yes: No Distress, Calm Cardiovascular: Yes: Regular Rate and Rhythm, S1, S2 Respiratory: Yes: Regular, Other (crackles at bases, improving) Gastrointestinal: Yes: Normal Bowel Sounds, Soft. No: Tenderness Edema: No Neurological: Yes: Alert, Oriented (to place, person) Labs: CBC, BMP 12/16/16 06:10 12/17/16 06:00 Discharge Summary Reason For Visit: SEPSIS, UTI, DEHYDRATION Current Active Problems Acute on chronic diastolic (congestive) heart failure (Acute) Bandemia (Acute) Dehydration (Acute) HTN (hypertension) (Acute) MDS (myelodysplastic syndrome) (Acute) Pleural effusion (Acute) Sepsis (Acute) UTI (urinary tract infection) (Acute) Procedures: Principal: CXRs Hospital Course: Pt came [facility] c/o cough, noticed to have fever, leukocytosis with bandemia, UTI. Pt was started on Levaquin, fever and bandemia improved. Pt with persistant cough, noticed on CXR to have congestion, pleural effusions, treated for acute CHF exacerbation with IV Lasix; pt's cough improved. Pt was seen by Cardiology (Dr. Boyce/ [place]). Pt to OR'ed home to [place] on increased dose of PO Lasix and serial BMP (to monitor renal function). Condition: Fair - Instructions Diet, Activity, Other Instructions: Diet: low salt, low cholesterol CBC, BMP, Mg in AM CXR next week to follow up on pleural effusions Referrals: Ranjit Thompson MD [Primary Care Provider] - Disposition: HALF-WAY FACILITY - Home Medications Comprehensive Discharge Medication List: Ambulatory Orders Aa/Hydrolyzed Collagen, Whey [Lps 15-30 Liquid] 30 ml PO DAILY 09/21/16 Acetaminophen [Tylenol] 650 mg PO Q6H PRN 09/21/16 Albuterol 0.083% Nebulizer [place] [Ventolin 0.083% Nebulizer Soln -] 1 neb NEB Q4H PRN 09/21/16 Apixaban [Eliquis] 2.5 mg PO BID 09/21/16 Atorvastatin Ca [Lipitor] 40 mg PO HS 09/21/16 Carvedilol [Coreg -] 6.25 mg PO BID 09/21/16 Furosemide [Lasix -] 20 mg PO DAILY 09/21/16 Levothyroxine [Synthroid -] 75 mcg PO DAILY 09/21/16 Magnesium Oxide 400 mg PO BID 09/21/16 Ramipril [Altace] 5 mg PO DAILY 09/21/16 Bethanechol Chloride [Bethanechol Chloride -] 25 mg PO TID tablet 09/24/16 Oxycodone HCl/Acetaminophen [Percocet 5-325 mg Tablet] 1 combo PO ONCE PRN #0 tablet MDD 4 09/24/16 Ferrous Sulfate [Feosol] 325 mg PO DAILY 12/09/16
[2016-12-17] MEDS: APIXABAN 2.5 MG TABLET PO SCH (11:09)
[2016-12-17] MEDS: RAMIPRIL 5 MG CAPSULE (FP) PO SCH (11:09)
[2016-12-17] MEDS: LEVOFLOXACIN 250 MG IVPB 50 ML IVPB SCH (11:10)
[2016-12-17] MEDS: FERROUS SO4 325 MG TABLET (FP) PO SCH (11:10)
[2016-12-17] MEDS: MAGNESIUM OXIDE 400 MG TABLET (FP) PO SCH (11:10)
[2016-12-17] MEDS: CARVEDILOL 6.25 MG TABLET (FP) PO SCH (11:10)
[2016-12-17 11:15] VITALS: BP 146/54; PULSE 81; TEMP 97.7
--- NOTE | 2016-12-17 13:34 | PN ---
Progress Note, Physician Chief Complaint: Not in distress History of Present Illness: Patient was seen and examined. Awake and alert. Sitting in chair. Chart was reviewed Denies chest pain or palpitations. Less SOB Complains of cough productive - Current Medication List Current Medications: Active Medications Acetaminophen (Tylenol -) 650 mg PO Q6H PRN PRN Reason: pain,fever Albuterol Sulfate (Ventolin 0.083% Nebulizer Soln -) 1 amp NEB Q4H PRN PRN Reason: sob Last Admin: 12/17/16 11:10 Dose: 1 amp Apixaban (Eliquis -) 2.5 mg PO BID [facility] Last Admin: 12/17/16 11:09 Dose: 2.5 mg Atorvastatin Calcium (Lipitor -) 40 mg PO HS [facility] Last Admin: 12/16/16 22:39 Dose: 40 mg Bethanechol Chloride (Urecholine -) 25 mg PO TID [facility] Last Admin: 12/17/16 06:45 Dose: 25 mg Carvedilol (Coreg -) 6.25 mg PO BID [facility] Last Admin: 12/17/16 11:10 Dose: 6.25 mg Docusate Sodium (Colace -) 100 mg PO BID PRN PRN Reason: CONSTIPATION Ferrous Sulfate (Feosol -) 325 mg PO DAILY [facility] Last Admin: 12/17/16 11:10 Dose: 325 mg Furosemide (Lasix -) 40 mg PO DAILY [facility] Last Admin: 12/17/16 11:09 Dose: 40 mg Guaifenesin/Codeine Phosphate (Robitussin Ac -) 5 ml PO Q8H PRN PRN Reason: COUGH Last Admin: 12/14/16 09:29 Dose: 5 ml Levofloxacin (Levaquin 250 Mg Premixed Ivpb -) 50 mls @ 50 mls/hr IVPB DAILY [facility] Last Admin: 12/17/16 11:10 Dose: 50 mls/hr Insulin Aspart (Novolog Vial Sliding Scale -) 1 vial SQ ACHS [facility] PRN Reason: Protocol Last Admin: 12/17/16 12:27 Dose: 4 units Levothyroxine Sodium (Synthroid -) 75 mcg PO ACBK [facility] Last Admin: 12/17/16 06:45 Dose: 75 mcg Magnesium Oxide (Mag-Ox -) 400 mg PO BID [facility] Last Admin: 12/17/16 11:10 Dose: 400 mg Ramipril (Altace -) 5 mg PO DAILY [facility] Last Admin: 12/17/16 11:09 Dose: 5 mg - Objective Vital Signs: Vital Signs Temperature 97.7 F 12/17/16 10:00 Pulse Rate 81 12/17/16 10:00 Respiratory Rate 18 12/17/16 10:00 Blood Pressure 146/54 12/17/16 10:00 O2 Sat by Pulse Oximetry (%) 98 12/16/16 21:00 Neck: Yes: Supple Cardiovascular: Yes: Regular Rate and Rhythm, Murmur (2/6 SM), S1, S2 Respiratory: Yes: Diminished Gastrointestinal: Yes: Normal Bowel Sounds, Soft. No: Tenderness Edema: No Labs: CBC, BMP 12/16/16 06:10 12/17/16 06:00 Problem List - Problems (1) HTN (hypertension) Code(s): I10 - ESSENTIAL (PRIMARY) HYPERTENSION Qualifiers: Hypertension type: essential hypertension Qualified Code(s): I10 - Essential (primary) hypertension (2) Pleural effusion Code(s): J90 - PLEURAL EFFUSION, NOT ELSEWHERE CLASSIFIED (3) Sepsis Code(s): A41.9 - SEPSIS, UNSPECIFIED ORGANISM Qualifiers: Sepsis type: sepsis due to unspecified organism Qualified Code(s): A41.9 - Sepsis, unspecified organism (4) UTI (urinary tract infection) Code(s): N39.0 - URINARY TRACT INFECTION, SITE NOT SPECIFIED Qualifiers: Urinary tract infection type: site unspecified Hematuria presence: with hematuria Qualified Code(s): N39.0 - Urinary tract infection, site not specified (5) Anemia Code(s): D64.9 - ANEMIA, UNSPECIFIED Qualifiers: Anemia type: unspecified type Qualified Code(s): D64.9 - Anemia, unspecified (6) Atrial fibrillation Code(s): I48.91 - UNSPECIFIED ATRIAL FIBRILLATION Qualifiers: Atrial fibrillation type: persistent Qualified Code(s): I48.1 - Persistent atrial fibrillation (7) CAD (coronary artery disease) Code(s): I25.10 - ATHSCL HEART DISEASE OF [place] CORONARY ARTERY W/O ANG PCTRS Qualifiers: Coronary Disease-Associated Artery/Lesion type: [place] artery [place] vs. transplanted heart: [place] heart Associated angina: without angina Qualified Code(s): I25.10 - Atherosclerotic heart disease of [place] coronary artery without angina pectoris (8) Hyperlipidemia Code(s): E78.5 - HYPERLIPIDEMIA, UNSPECIFIED Qualifiers: Hyperlipidemia type: pure hypercholesterolemia Qualified Code(s): E78.00 - Pure hypercholesterolemia, unspecified; E78.0 - Pure hypercholesterolemia (9) Hypothyroidism Code(s): E03.9 - HYPOTHYROIDISM, UNSPECIFIED Qualifiers: Hypothyroidism type: unspecified Qualified Code(s): E03.9 - Hypothyroidism, unspecified (10) Shoulder fracture, right Code(s): S42.91XA - FRACTURE OF RIGHT SHOULDER GIRDLE, PART UNSP, INIT Qualifiers: Encounter type: initial encounter Fracture type: closed Qualified Code(s): S42.91XA - Fracture of right shoulder girdle, part unspecified, initial encounter for closed fracture Assessment/Plan 1. Fevers referable to UTI - resolving 2. Coronary artery disease, angina pectoris 3. Acute on chronic diastolic left ventricular failure - bilateral pleural effusion with dyspnea 4. Permanent Atrial fibrillation [id number] score of 5 on chronic anticoagulation therapy with NOAC 5. HTN 6. Hypercholesterolemia 7. Hypothyroidism 8. Acute on chronic kidney disease 9. Severe OA/DJD 10. History of spinal stenosis 11. Urinary retention 12. Anemia 13. History of mechanical fall, chronically dislocated right shoulder, non- displaced proximal humerus fracture for conservative medical management PLAN: 1. Continue Apixaban 2.5 mg PO BID 2. Continue Atorvastatin 3. Continue Carvedilol and Ramipril 4. Continue Furosemide with monitoring renal function and electrolytes 5. Complete antibiotic course Further plans are to follow. Discharge planning Michael Davila MD
== END 2016-12-17 17:58 | DRG 689 ==
LOC: SUPCPDRO 23:30 → JER 23:30 → JERBED 12-10 03:23 → J8W 12-10 04:42
PROVIDERS: ADMIT Specialist; ATTEND Specialist
DX: N39.0 Urinary tract infection, site not specified (principal); I50.33 Acute on chronic diastolic (congestive) heart failure; C94.6 Myelodysplastic disease, not elsewhere classified; E86.0 Dehydration; J44.9 Chronic obstructive pulmonary disease, unspecified; I25.2 Old myocardial infarction; E78.00 Pure hypercholesterolemia, unspecified; E03.9 Hypothyroidism, unspecified; I48.91 Unspecified atrial fibrillation; Z79.01 Long term (current) use of anticoagulants; M19.90 Unspecified osteoarthritis, unspecified site; M47.9 Spondylosis, unspecified; M85.80 Other specified disorders of bone density and structure, unspecified site; I11.0 Hypertensive heart disease with heart failure; G62.9 Polyneuropathy, unspecified; F03.90 Unspecified dementia, unspecified severity, without behavioral disturbance, psychotic disturbance, mood disturbance, and anxiety; I25.119 Atherosclerotic heart disease of native coronary artery with unspecified angina pectoris; M24.411 Recurrent dislocation, right shoulder; D64.9 Anemia, unspecified; D72.825 Bandemia
CPT/HCPCS: 36415; 71010-TC; 71020-TC; 80048; 80053; 81003; 81015; 82550; 82607; 82728; 82784; 83540; 83550; 83605; 83880; 84155; 84165; 84443; 84484; 85025; 85027; 85044; 85610; 85651; 86334; 86850; 86900; 86901; 87040; 87086; 93005; 93010; 93306-TC; 94640; 99283-25